=== PATIENT | male | born 1945 | race Caucasian/White ===

== ENCOUNTER → 2018-03-09 10:01 | Outpatient (CLI) | payer MEDICARE, OTHER, SELFPAY ==
[2018-03-09 10:39] LABS: Amphetamine Urine VISTA NEGATIVE (<1000 ng/mL); Barbiturate Urine VISTA NEGATIVE (< 200 ng/mL); Benzodiazepine Urine VISTA NEGATIVE (< 200 ng/mL); Cocaine Urine VISTA NEGATIVE (< 300 ng/mL); Ecstacy Urine VISTA NEGATIVE (< 500 ng/mL); Methadone Urine VISTA NEGATIVE (< 300 ng/mL); PCP Urine VISTA NEGATIVE (< 25 ng/mL); THC Urine VISTA NEGATIVE (< 50 ng/mL); Vista UDS pH Range 5
== END ==
PROVIDERS: Family Provider Family Medicine; PCP Family Medicine; Visit Provider Anesthesiology Pain Medicine
DX: F11.20 Opioid dependence, uncomplicated (principal)
CPT/HCPCS: 80307

== ENCOUNTER → 2018-12-13 09:14 | Outpatient (CLI) | payer MEDICARE, OTHER, SELFPAY ==
[2018-12-13 10:24] LABS: Amphetamine Urine VISTA NEGATIVE (<1000 ng/mL); Barbiturate Urine VISTA NEGATIVE (< 200 ng/mL); Benzodiazepine Urine VISTA NEGATIVE (< 200 ng/mL); Cocaine Urine VISTA NEGATIVE (< 300 ng/mL); Ecstacy Urine VISTA NEGATIVE (< 500 ng/mL); Methadone Urine VISTA NEGATIVE (< 300 ng/mL); PCP Urine VISTA NEGATIVE (< 25 ng/mL); THC Urine VISTA NEGATIVE (< 50 ng/mL); Vista UDS pH Range 5
== END ==
PROVIDERS: Referring Provider Anesthesiology Pain Medicine; Visit Provider Anesthesiology Pain Medicine
DX: F11.20 Opioid dependence, uncomplicated (principal)
CPT/HCPCS: 80307

== ENCOUNTER → 2019-03-30 06:59 | Outpatient (CLI) | payer MEDICARE, OTHER, SELFPAY ==
[2019-03-30 10:21] LABS: Absolute Lymphocyte Count 2.46 X10^3/ul (0.83-4.51); Absolute Neutrophil Count 6.1 X10^3/uL (2.0-7.7); Basophil# 0.05 X10^3/uL; Basophil% 0.5 % (0-1); Eosinophil# 0.12 X10^3/uL; Eosinophils% 1.2 % (0-5); Hematocrit 46.7 % (40-54); Hemoglobin 15.5 g/dl (13.0-16.5); Lymphocyte # 2.46 X10^3/ul (4.0); Lymphocyte % 24.9 % (19-41); Mean Corp Hgb Conc 33.2 g/gl (32-36); Mean Corpuscular Hgb 30.6 pg (27.0-32.0); Mean Corpuscular Volume 92.3 fL (80-94); Mean Platelet Vol. 10.7 fl (6.2-12.0); Monocyte# 1.09 X10^3/uL; Neutrophil # 6.13 X10^3/uL (2.7-7.7); Neutrophil % 62.1 % (47-70); Platelet Count 215 K/mm3 (150-450); RBC Distribution Width CV 13.5 % (11.6-14.6); RBC Distribution Width SD 44.9 fl (35.1-43.9); Red Blood Count 5.06 M/mm3 (4.6-6.2); White Blood Count 9.9 K/mm3 (4.4-11.0)
[2019-03-30 10:23] LABS: Color, Urine Yellow (Yellow); Glucose, Dipstick Normal (Normal); Ketone-Dipstick Negative (Negative); Leukocyte Esterase-Dipstick Negative /ul (Negative); Nitrite-Dipstick Negative (Negative); Occult Blood-Urine 10 /ul (Negative); Protein-Dipstick Negative (Negative); Urine Bilirubin Dipstick Negative (Negative); Urine Clarity Clear (Clear); Urine Urobilinogen Normal (Normal)
[2019-03-30 10:24] LABS: POSITIVE COUNT NO; POSITIVE DIFFERENTIAL NO; POSITIVE MORPHOLOGY NO
[2019-03-30 10:52] LABS: ALB/GLOB Ratio 1.1 RATIO (0.9-2.4); AST(SGOT) 22 U/L (15-37); Alanine Aminotransfer ALT/SGPT 32 U/L (16-61); Albumin, Serum 3.7 g/dL (3.2-5.0); Alkaline Phosphatase 87 U/L (45-117); Anion Gap 5 (5-15); BUN 16 mg/dL (7-18); BUN/Creat Ratio 15.2 RATIO (10-20); Calcium,Total 8.6 mg/dL (8.5-10.1); Chloride 104 mmol/L (98-107); Creatinine, Serum 1.05 mg/dL (0.70-1.30); EST Glomerular Filtration Rate 74 mL/min (>60); Est Glom Filt Rate - Afr Amer 89 mL/min (>60); Globulin 3.5 g/dL (2.2-4.2); Glucose 91 mg/dL (74-106); PSA,Total - Annual Screen 2.38 ng/mL (0.00-4.00); Potassium 4.4 mmol/L (3.5-5.1); Protein, Total 7.2 g/dL (6.4-8.2); Sodium Level 138 mmol/L (136-145); Thyroid Stim Hormone (TSH) 1.75 uIU/mL (0.358-3.74)
[2019-03-30 11:03] LABS: Vitamin B12 631 pg/mL (211-911); Vitamin D,25 Hydroxy 29.4 ng/mL (29.95-100.01)
[2019-04-02 11:36] LABS: Hep C Antibodies <0.1 s/co ratio (0.0-0.9)
== END ==
PROVIDERS: Referring Provider Family Medicine; Visit Provider Family Medicine
DX: I10 Essential (primary) hypertension (principal); R63.4 Abnormal weight loss; R73.03 Prediabetes; R53.83 Other fatigue; Z11.59 Encounter for screening for other viral diseases
CPT/HCPCS: 36415; 80053; 81002; 82306; 82607; 82746; 84153; 84443; 85025; 86803; G0103

== ENCOUNTER → 2019-05-29 09:00 | Outpatient (CLI) | payer MEDICARE, OTHER, SELFPAY ==
--- NOTE | 2019-05-29 09:00 | CYSPIN_PTH ---
PATIENT: RUBEN ROSA [facility] U#:[id number] AGE/SX: 80/M ROOM: RE05/29/[address]: NICHOLAS Hernandez : 1945 BED: DIS: SPEC #: [id number] RECD: 05/30/19 10:53 STATUS: SHANTANU HILDA #: [id number] TOMMY: 05/29/19 09:[address]: Cheryle Elias NP DEPT: CYTOLOGY RECD BY: Rashaad Garcia ENTERED: 05/30/19 10:55 SP TYPE: CYSPIN FL OTHR DR: No Primary Care Phys Procedures: Pap Stain (control) Special Stain Group II Cytospin Fluid HEADER OPERATION: Not noted PRE-OP DIAGNOSIS: Hematuria TISSUE SUBMITTED: Urine for cytology DIAGNOSIS CYTOLOGY Urine for cytology (cytospin): Negative for malignant cells. Amorphous acellular material is noted. SJ:rufina 05/31/19 CYTOLOGY STUDY Slides are reviewed. CYTOLOGY GROSS Received is 40 ml of cloudy yellow fluid labeled with the patient's name and and designated per the requisition as urine. Submitted for cytology preparation. / JAY:diane 05/30/19 TC:5 CPT: 43274
[2019-05-29 18:11] LABS: Cytology, Body Fluid / CSF SEE PATHOLOGY REPORT
== END ==
PROVIDERS: Referring Provider Nurse Practitioner Adult Health; Visit Provider Nurse Practitioner Adult Health
DX: R31.9 Hematuria, unspecified (principal)
CPT/HCPCS: 88108; 88313

== ENCOUNTER → 2020-04-14 09:18 | Outpatient (CLI) | payer MEDICARE, SELFPAY ==
[2020-04-14 10:00] LABS: Amphetamine Urine VISTA NEGATIVE (<1000 ng/mL); Barbiturate Urine VISTA NEGATIVE (< 200 ng/mL); Benzodiazepine Urine VISTA NEGATIVE (< 200 ng/mL); Cocaine Urine VISTA NEGATIVE (< 300 ng/mL); Ecstacy Urine VISTA POSITIVE (< 500 ng/mL); Methadone Urine VISTA NEGATIVE (< 300 ng/mL); PCP Urine VISTA NEGATIVE (< 25 ng/mL); THC Urine VISTA NEGATIVE (< 50 ng/mL); Vista UDS pH Range 5
== END ==
PROVIDERS: PCP Family Medicine; Referring Provider Anesthesiology Pain Medicine; Visit Provider Anesthesiology Pain Medicine
DX: F11.20 Opioid dependence, uncomplicated (principal)
CPT/HCPCS: 80307

== ENCOUNTER → 2020-05-26 09:37 | Outpatient (CLI) | payer MEDICARE, SELFPAY ==
[2020-05-26 10:38] LABS: Squamous Epithelial Cells - UA 0 SEEN /hpf (0-5); White Blood Cells 0 SEEN /hpf (0-5)
[2020-05-26 12:28] LABS: Color, Urine Yellow (Yellow); Glucose, Dipstick Normal (Normal); Ketone-Dipstick Negative (Negative); Leukocyte Esterase-Dipstick Negative /ul (Negative); Nitrite-Dipstick Negative (Negative); Occult Blood-Urine 10 /ul (Negative); Protein-Dipstick Negative (Negative); Specific Gravity, Urine 1.015 (1.002-1.030); Urine Bilirubin Dipstick Negative (Negative); Urine Clarity Clear (Clear); Urine Urobilinogen Normal (Normal)
[2020-05-26 12:36] LABS: Amorphous Sediment 2+; Bacteria 1+ /hpf (None Seen); Mucous, Urine 2+ /hpf (<or=2+); Red Blood Cells-Urine 0-5 SEEN /hpf (0-5)
[2020-05-26 12:50] LABS: OXY Internal Control LINE = VALID (VALID); Oxycodone Drug Screen Positive (<100 ng/mL)
[2020-05-26 12:51] LABS: Amphetamine Urine VISTA NEGATIVE (<1000 ng/mL); Barbiturate Urine VISTA NEGATIVE (< 200 ng/mL); Benzodiazepine Urine VISTA NEGATIVE (< 200 ng/mL); Cocaine Urine VISTA NEGATIVE (< 300 ng/mL); Ecstacy Urine VISTA NEGATIVE (< 500 ng/mL); Methadone Urine VISTA NEGATIVE (< 300 ng/mL); PCP Urine VISTA NEGATIVE (< 25 ng/mL); THC Urine VISTA NEGATIVE (< 50 ng/mL); Vista UDS pH Range 6
== END ==
PROVIDERS: PCP Family Medicine; Visit Provider Family Medicine
DX: N41.0 Acute prostatitis (principal); G89.29 Other chronic pain; Z51.81 Encounter for therapeutic drug level monitoring
CPT/HCPCS: 80307; 80365; 81001; G0480

== ENCOUNTER → 2020-09-30 07:12 | Outpatient (CLI) | payer MEDICARE, SELFPAY ==
--- NOTE | 2020-09-30 07:27 | MRI_ITS ---
STUDY: MRI LUMBAR SPINE WITHOUT CONTRAST REASON FOR EXAM: Male, 75 years old. right radiculopathy, numbness, pain, hx prior surgery 13 years ago TECHNIQUE: Standardized fat and water weighted pulse sequences were obtained in the sagittal and axial planes. COMPARISON: 11/15/2016 FINDINGS: Lumbar lordosis preserved. Levoscoliosis. Conus medullaris terminates normally at the L1 level. No acute fracture. No acute dislocation. No acute bone destruction. Mild paraspinal muscle atrophy. Normal aorta. Normal retroperitoneum. Sacrum intact. T12-L1: Normal endplates. Normal disc height, hydration and morphology. Normal bilateral facet joints. Normal central canal and bilateral lateral recesses. Normal bilateral intervertebral neural foramina. L1-2: Normal endplates. Shallow disc bulge. Facet joint arthrosis. Normal central canal and bilateral lateral recesses. Neural foraminal narrowing without impingement. L2-3: Mild endplate spondylosis. Shallow disc bulge. Facet joint arthrosis. Normal central canal and bilateral lateral recesses. Neural foraminal narrowing without impingement. L3-4: Mild endplate spondylosis. Disc bulge/osteophyte complex with mild central canal narrowing. Facet joint arthrosis. Normal bilateral lateral recesses. Neural foraminal narrowing with contact of the right exiting nerve root. L4-5: Minimal endplate spondylosis. Disc bulge without central canal narrowing. Facet joint arthrosis. Normal central canal and bilateral lateral recesses. Neural foraminal narrowing with contact of the left exiting nerve root. Uncomplicated postsurgical change. L5-S1: Normal endplates. Disc bulge, annular fissure, without central canal narrowing. Facet joint arthrosis. Normal central canal and bilateral lateral recesses. Neural foraminal narrowing without impingement. MRI/Spine Lumbar (Routine) IMPRESSION: Multilevel intervertebral disc disease with mild central canal narrowing at L3-4 Multilevel neural foraminal narrowing with contact of the right L3 and left L4 nerve roots Levoscoliosis with mild/moderate osteoarthritis Uncomplicated postsurgical change Electronically Signed: Kaden Jones DO at 11:31 EST Tel , Service support ,
== END ==
PROVIDERS: PCP Family Medicine; Referring Provider Family Medicine; Visit Provider Family Medicine
DX: M54.17 Radiculopathy, lumbosacral region (principal)
CPT/HCPCS: 72148

== ENCOUNTER → 2020-12-26 08:52 | Outpatient (CLI) | payer MEDICARE, SELFPAY ==
[2020-10-10 08:34] VITALS: BMI 23.8
--- NOTE | 2020-12-26 08:58 | CDU_ITS ---
Reason For Study: CAROTID BRUIT Rt. Velocities/BP Lt. Velocities/BP Prox CCA 97.3/8.6 cm/sec. Prox CCA 84.1/20.4 cm/sec. Mid CCA 73.9/15.1 cm/sec. Mid CCA 87.4/18.2 cm/sec. Dist CCA 76.4/17.7 cm/sec. Dist CCA 81.9/21.5 cm/sec. Prox ICA 442.5/117.5 cm/sec. Prox ICA 204.3/49.1 cm/sec. Mid ICA 208.8/45.6 cm/sec. Mid ICA 144.0/32.0 cm/sec. Dist ICA 95.7/28.1 cm/sec. Dist ICA 130.8/25.5 cm/sec. Rt. ICA/CCA = 442.5/76.4=5.8. Lt. ICA/CCA = 204.3/87.4=2.3. Prox ECA 216.6/22.3 cm/sec. Prox ECA 353.5/0.0 cm/sec. Rt. Vert. 66.9/18.6 cm/sec. Lt. Vert. 64.1/11.2 cm/sec. Right Extracranial There is intimal thickening but no significant atherosclerotic plaque noted in the right common carotid artery. There is heterogeneous, irregular atherosclerotic plaque noted in the right internal carotid artery. There is heterogeneous, irregular atherosclerotic plaque noted in the right external carotid artery. Antegrade flow is noted in the right vertebral artery. There is heterogeneous, irregular atherosclerotic plaque noted in the right bulb. Left Extracranial There is heterogeneous, smooth atherosclerotic plaque noted in the left common carotid artery. There is heterogeneous, irregular atherosclerotic plaque noted in the left internal carotid artery. There is heterogeneous, irregular atherosclerotic plaque noted in the left external carotid artery. Antegrade flow is noted in the left vertebral artery. There is heterogeneous, irregular atherosclerotic plaque noted in the left bulb. Procedure Carotid Duplex [id number]. The study was technically difficult. Exam performed in department. Interpretation Summary Irregular calcific plaque at the proximal right internal and external carotid arteries Greater than 70% stenosis right internal carotid artery and likely near occlusion based upon elevated diastolic velocity. Greater than 50% stenosis right external carotid artery Irregular plaque at the proximal left internal and external carotid arteries 50 to 69% stenosis left internal carotid artery Greater than 50% stenosis left external carotid artery Patent and antegrade vertebrals bilaterally Ordering Physician: Delta Blair Referring Physician: Delta Blair Performed By: Citlaly Hodges, RDCS, RVT
== END ==
PROVIDERS: PCP Family Medicine; Referring Provider Family Medicine; Visit Provider Family Medicine
DX: I65.23 Occlusion and stenosis of bilateral carotid arteries (principal); R09.89 Other specified symptoms and signs involving the circulatory and respiratory systems; R42 Dizziness and giddiness; I10 Essential (primary) hypertension
CPT/HCPCS: 93880

== ENCOUNTER 2021-01-08 09:00 | Outpatient (RCR) | payer MEDICARE, SELFPAY ==
[2020-10-10 08:34] VITALS: BMI 23.8
--- NOTE | 2020-12-16 13:54 | HP.PTEVAL ---
Patient's Visit Information RUBEN ROSA is a 75 year old M referred to Physical Therapy by Dr. Huber Penn DO with a diagnosis of Lumbar stenosis, IDD. Date of Evaluation: 12/16/20 Physical Therapist: ANTONIA AkersT, OCS, CSCS - Visit Plan Frequency: 2x /Week Duration: 4-6 Weeks Plan: 2x/week for 4-6 week for. 1. NS educationa dn strength. 2. HS and hip flexor and quad stretches to HEP. 3. LB AROM and NS strength to HEP. 4. Monitor R hip OA and sterngtghen hips. Consider pool if NS strength not helpful. - Subjective Pain and stiffness in B from accident picking up a RR tie. Made his back a mess. Has scoliosis and OA. Had surgery 13 yrs ago which helped foot. Last 6 months have gotten worse. Last May took a tree down at property and R leg went numb all the way down. Had some leg pain also. Took 60 minutes to go away. Walking makes it worse now. Gets wrose R buttock down front of R leg all on R side. Has not had numbness lately. Sitting feels pretty good. No urinary problems other than R leg pain. Feels like leg is stronger. Sleep is not great but more due to other issues as he is comfortable at rest lying. [facility] aDLs are getting done, sometimes painful but I. 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 He woud normally do repairs himself. Used to maliha dn walk for fitness but cannot. - Pain R back and leg Pain Intensity (Out of 10): 0 Pain Intensity Range: 0, 7 Comment: worse on your feet. - Objective Walks I across surfaces but tends to hunch a bit. Reciprocal steps starting to feel pain R hip after about 200 feet adn one flight steps. Trasnfers are I. LB AROM is mod limited in ext adn pain R post hip. flexion is full. SB are min deficit and painfree. HS and quads and hip flexors max tight. AROM LE WNL except hip ext limtied to 5 degrees due to tightness. Strength LE 4/5 without pain or myotomal concerns. Sensation LE WNL to gross lgiht touch in LE. reflexes 2/3 patella domo chilles. Pelvic movement is fair but tends to anteriorly rotate it. Has + R Vidya adn FADDIR adn scour and limited IR B R>L with pain - Goals Goal 1:: Pt i urszula pprop HEP for NS adn core ROM adn strength Goal Time Frame: 4-6 Weeks Goal 2:: Pt feel 75% better overall in pain levels and walk at home without increased pain. Goal Time Frame: 4-6 Weeks Goal 3:: Pt walk at grocery store without having to be llimited. Goal Time Frame: 4-6 Weeks Goal 4:: Oswestry 12 or less. Goal Time Frame: 4-6 Weeks - Rehabilitation Potential Physical Therapy Diagnosis: stenosis and degeneration in LB vs r hip OA> Rehabilitation Potential: Fair - Anticipated Interventions Patient/Client Instruction: Educate patient on: Condition, Plan of Care For the Purpose of:: To decrease pain, To increase ROM, To increase tolerance to activity/condition/position, To improve ability of physical actions for home/community/work/leisure Therapeutic Exercise to Include: Strength training, Postural training, Flexibilty training, Passive ROM, Active ROM, Dynamic Lumbar Stabilization For the Purpose of:: To decrease pain, To increase ROM, To improve muscle performance and motor function, To increase tolerance to activity/condition/position Manual Therapy Techniques to Include: Mobilization, Passive ROM For the Purpose of:: To decrease pain, To increase ROM, To improve muscle performance and motor function Thermo therapy (hot pack): Yes For the Purpose of:: To decrease pain Thank you for the opportunity to evaluate your patient. For Medicare and Medicare HMO plans, please review the plan of care and approve it. It will need to be FAXED BACK to us at [phone] for Medicare purposes. For Medicare only, by signing this I certify the plan of care. Please let me know if there are questions or concerns regarding this plan of care. Physician Signature: Date:
--- NOTE | 2021-03-18 13:24 | HP.PT.NRP ---
RUBEN ROSA was seen in my office for initial evaluation on 12/16/20. The following Plan of Care was established for this patient: Initial Frequency: 2x /Week Initial Duration: 4-6 Weeks Patient/Client Instruction: Educate patient on: Condition, Plan of Care For the Purpose of:: To decrease pain, To increase ROM, To increase tolerance to activity/condition/position, To improve ability of physical actions for home/community/work/leisure Therapeutic Exercise to Include: Strength training, Postural training, Flexibilty training, Passive ROM, Active ROM, Dynamic Lumbar Stabilization For the Purpose of:: To decrease pain, To increase ROM, To improve muscle performance and motor function, To increase tolerance to activity/condition/position Manual Therapy Techniques to Include: Mobilization, Passive ROM For the Purpose of:: To decrease pain, To increase ROM, To improve muscle performance and motor function Thermo therapy (hot pack): Yes For the Purpose of:: To decrease pain This patient was last seen in our office 01/08/21. Pertinent comments regarding their Physical therapy will appear below: Pt seen 5 visits of POC. HE then neglected to schedule any further visits. At this point, it has been over two months and I iwlll discontinue due to nonattendance. At this point I will be discontinuing this patient from physical therapy. I would be happy to see this patient again in the future if found appropriate by the physician. Thank you! Kaden Ma, DPT, OCS, CSCS
== END 2021-01-08 19:00 | disposition home or self-care (01) ==
LOC: PT 09:00
PROVIDERS: PCP Family Medicine; Referring Provider Orthopaedic Surgery; Visit Provider Orthopaedic Surgery
DX: M48.061 Spinal stenosis, lumbar region without neurogenic claudication (principal); M47.26 Other spondylosis with radiculopathy, lumbar region; M51.36 Other intervertebral disc degeneration, lumbar region
CPT/HCPCS: 97110; 97140; 97162

== ENCOUNTER → 2021-01-08 13:47 | Outpatient (CLI) | payer MEDICARE, SELFPAY ==
[2021-01-01 12:33] VITALS: BMI 24.6
--- NOTE | 2021-01-08 13:48 | CT_ITS ---
STUDY: CTA NECK WITH CONTRAST REASON FOR EXAM: Male, 75 years old. Bilateral carotid stenosis RADIATION DOSAGE (If Supplied By Facility): CTDIvol = ( 23.82 ) mGy, DLP = ( 663.13 ) mGycm TECHNIQUE: CT angiography with multi-detector data acquisition was performed from the aortic arch to the skull base following intravenous administration of 100mL Isovue-370. MIP images were reconstructed from the axial data set. Post-processing of the angiographic images was performed, with multiplanar reformation and 3D reconstruction. Individualized dose optimization techniques were used for this CT. COMPARISON: Ultrasound December 26, 2020 FINDINGS: AORTIC ARCH: Normal visualized aortic arch. Normal origins of the brachiocephalic, left common carotid, and left subclavian arteries. RIGHT CAROTID ARTERIES: Normal right common carotid artery (CCA). There is extensive atherosclerotic plaque formation with severe narrowing of the right carotid bulb with a hemodynamically significant stenosis. There is severe atherosclerotic plaque formation of the origin of the right internal carotid artery with a near complete , greater than 90%, occlusion. Normal visualized cervical portion of the right internal carotid artery. Normal origin of the right external carotid artery (ECA). LEFT CAROTID ARTERIES: Normal left common carotid artery (CCA). There is moderate atherosclerotic plaque formation with moderate narrowing of the carotid bulb. There is moderate atherosclerotic plaque formation of the origin of the left internal carotid artery with an estimated stenosis of 50-69% stenosis. Normal visualized cervical portion of the left internal carotid artery. Normal origin of the left external carotid artery (ECA). VERTEBRAL ARTERIES: Normal bilateral vertebral arteries. CT/CTA Neck W/WO Contrast IMPRESSION: Severe, greater than 90%, right internal carotid arteries stenosis with near total occlusion. Moderate, 50-69%, left internal carotid artery stenosis. Electronically Signed: Varghese Young MD at 23:13 EST , Service support ,
[2021-01-08 14:25] LABS: CREATININE FINGERSTICK 1.1 mg/dL (0.70-1.30); EGFR FINGERSTICK > 60.0000 mL/min (>60)
== END ==
PROVIDERS: PCP Family Medicine; Referring Provider Surgery; Visit Provider Surgery
DX: I65.23 Occlusion and stenosis of bilateral carotid arteries (principal)
CPT/HCPCS: 70498; Q9967

== ENCOUNTER 2021-01-19 05:23 | Inpatient (IN) | payer MEDICARE, SELFPAY ==
--- NOTE | 2021-01-15 10:39 | EKG12_ITS ---
Test Reason : PREOP Blood Pressure : / mmHG Vent. Rate : 078 BPM Atrial Rate : 078 BPM P-R Int : 178 ms QRS Dur : 100 ms QT Int : 404 ms P-R-T Axes : 045 003 088 degrees QTc Int : 460 ms Normal sinus rhythm Normal ECG Confirmed by SHILOH CHAVES, LUCY ([id number]), editor managing newspaper JOSE TORRES ([id number]) on 01/16/2021 9:20:47 AM Referred By: Lionel Little Confirmed By:LUCY MATAMOROS MD
[2021-01-15 11:41] LABS: Hematocrit 45.6 % (40-54); Hemoglobin 14.7 g/dL (13.0-16.5); Mean Corp Hgb Conc 32.2 g/dL (32-36); Mean Corpuscular Hgb 30.3 pg (27.0-32.0); Mean Platelet Vol. 10.3 fl (6.2-12.0); Platelet Count 221 K/mm3 (150-450); RBC Distribution Width CV 12.7 % (11.6-14.6); RBC Distribution Width SD 43.8 fl (35.1-43.9); Red Blood Count 4.85 M/mm3 (4.6-6.2); White Blood Count 9.7 K/mm3 (4.4-11.0)
[2021-01-15 11:49] LABS: International Normalized Ratio 1.1; Partial Thromboplast Time 29.4 Seconds (24.1-36.2); Prothrombin Time (Protime)PT. 13.5 SECONDS (11.7-14.9)
[2021-01-15 12:00] LABS: Anion Gap 6 (5-15); BUN 20 mg/dL (7-18); BUN/Creat Ratio 18.3 RATIO (10-20); Calcium,Total 8.7 mg/dL (8.5-10.1); Chloride 104 mmol/L (98-107); Creatinine, Serum 1.09 mg/dL (0.70-1.30); EST Glomerular Filtration Rate 70 mL/min (>60); Est Glom Filt Rate - Afr Amer 85 mL/min (>60); Glucose 178 mg/dL (74-106); Potassium 4.2 mmol/L (3.5-5.1); Sodium Level 140 mmol/L (136-145)
[2021-01-15 12:14] LABS: AST(SGOT) 32 U/L (15-37); Alanine Aminotransfer ALT/SGPT 43 U/L (16-61); Albumin, Serum 3.5 g/dL (3.2-5.0); Alkaline Phosphatase 97 U/L (45-117); Bilirubin, Direct 0.11 mg/dL (0.00-0.30); Globulin 3.4 g/dL (2.2-4.2); Protein, Total 6.9 g/dL (6.4-8.2)
[2021-01-19] VITALS (20 sets, daily range): BP systolic 114–158; BP diastolic 44–81; PULSE 63–94; RESP 16–18; TEMP 36.1–36.8; O2SAT 95–100; BMI 26.5; BMI 25.7
--- NOTE | 2021-01-19 05:57 | HP.PCM_ITS ---
Problem List (1) Bilateral carotid artery stenosis Status: Acute History and Physical Date of Admission: 01/19/21 Intake Intake Visit Reasons: discuss CTA Chief Complaint: discuss testing Wave Guide Assembler Required: No Is patient in pain?: No Allergies tramadol [From [facility]] Allergy (Severe, Verified 01/12/21 09:43) near Medications acyclovir 200 mg capsule 200 mg PO TID 10/10/20 [History Confirmed 01/12/21] mecobalamin (vitamin B12) 1,000 mcg disintegrating tablet,sublingual 1,000 mcg SUBLINGUAL DAILY 10/10/20 [History Confirmed 01/12/21] oxycodone-acetaminophen 5 mg-325 mg tablet 1 tab PO Q8H PRN 10/10/20 [History Confirmed 01/12/21] amitriptyline 100 mg tablet 100 mg PO DAILY 01/01/21 [History Confirmed 01/12/21] amlodipine 2.5 mg tablet 2.5 mg PO DAILY 01/01/21 [History Confirmed 01/12/21] gabapentin 100 mg capsule 100 mg PO QHS 01/01/21 [History Confirmed 01/12/21] lisinopril 5 mg tablet 20 mg PO DAILY tab 01/01/21 [History Confirmed 01/12/21] tizanidine 4 mg capsule 4 mg PO QHS 01/01/21 [History Confirmed 01/12/21] atorvastatin 80 mg tablet 80 mg PO DAILY tab 01/12/21 [History Confirmed 01/12/21] PFSH Medical History Peripheral arterial occlusive disease (Acute) Bilateral carotid artery stenosis (Acute) Back pain (Acute) H/o fracture to left knee (Acute) HTN (hypertension) (Chronic) Surgical History History of back surgery (Acute) History of tonsillectomy (Acute) Family History Mother Hypertension CVA (cerebral vascular accident) Brother Aneurysm Social History (Updated 01/12/21 @ 10:[address] Lionel Little MD) household members: spouse housing: house Smoking Status: Never smoker alcohol intake: never substance use type: does not use what type of physical activity do you participate in: none HPI HPI HPI: RUBEN SEARS, is a 75 M who presents to the office today for surgical follow-up of asymptomatic extracranial carotid artery occlusive disease. My history is physical is as below. The patient had a CTA of the carotid on January 08, 2021. This demonstrates near total occlusion of the right internal carotid. This correlates well with a carotid duplex exam that he had. The patient has been initiated on a statin medication as per Dr. Delta Blair. The patient returns today discussed treatment options. He does take an 81 mg aspirin daily as well. Reviewed the CTA of his carotids with him. I demonstrated him a high-grade right carotid stenosis. The 50 to 69% stenosis of the left internal carotid. January 08, 2021 [facility] Imaging Services [address] [place] [address] CTA Neck W/WO Contrast MR#: [id number] Name: RUBEN ROSA ARe #:[id number] : 1945M 75 From: Varghese Young MD PCP:Dr. Delta Blair, DO Status:REG CLI Study:CTA Neck W/WO Contrast Date of Exam:01/08/21 Exam#[id number] Ordering Dr: Lionel Little MD STUDY: CTA NECK WITH CONTRAST REASON FOR EXAM: Male, 75 years old. Bilateral carotid stenosis RADIATION DOSAGE (If Supplied By Facility): CTDIvol = ( 23.82 ) mGy, DLP = ( 663.13 ) mGycm TECHNIQUE: CT angiography with multi-detector data acquisition was performed from the aortic arch to the skull base following intravenous administration of 100mL Isovue-370. MIP images were reconstructed from the axial data set. Post-processing of the angiographic images was performed, with multiplanar reformation and 3D reconstruction. Individualized dose optimization techniques were used for this CT. COMPARISON: Ultrasound December 26, 2020 FINDINGS: AORTIC ARCH: Normal visualized aortic arch. Normal origins of the brachiocephalic, left common carotid, and left subclavian arteries. RIGHT CAROTID ARTERIES: Normal right common carotid artery (CCA). There is extensive atherosclerotic plaque formation with severe narrowing of the right carotid bulb with a hemodynamically significant stenosis. There is severe atherosclerotic plaque formation of the origin of the right internal carotid artery with a near complete , greater than 90%, occlusion. Normal visualized cervical portion of the right internal carotid artery. Normal origin of the right external carotid artery (ECA). LEFT CAROTID ARTERIES: Normal left common carotid artery (CCA). There is moderate atherosclerotic plaque formation with moderate narrowing of the carotid bulb. There is moderate atherosclerotic plaque formation of the origin of the left internal carotid artery with an estimated stenosis of 50-69% stenosis. Normal visualized cervical portion of the left internal carotid artery. Normal origin of the left external carotid artery (ECA). VERTEBRAL ARTERIES: Normal bilateral vertebral arteries. CT/CTA Neck W/WO Contrast IMPRESSION: Severe, greater than 90%, right internal carotid arteries stenosis with near total occlusion. Moderate, 50-69%, left internal carotid artery stenosis. Electronically Signed: Varghese Young MD at 23:13 EST , Service support , Addendum entered and electronically signed by Lionel Little MD 01/05/21 10:56: Atorvastatin 80 mg orally daily initiated January 05, [address] Delta Little M.D., F.A.C.S. Intake Chief Complaint: carotid stenosis Allergies tramadol [From [facility]] Allergy (Severe, Verified 01/01/21 12:34) near Medications acyclovir 200 mg capsule 200 mg PO TID 10/10/20 [History Confirmed 01/01/21] mecobalamin (vitamin B12) 1,000 mcg disintegrating tablet,sublingual 1,000 mcg SUBLINGUAL DAILY 10/10/20 [History Confirmed 01/01/21] oxycodone-acetaminophen 5 mg-325 mg tablet 1 tab PO Q8H PRN 10/10/20 [History Confirmed 10/10/20] amitriptyline 100 mg tablet 100 mg PO DAILY 01/01/21 [History Confirmed 01/01/21] amlodipine 2.5 mg tablet 2.5 mg PO DAILY 01/01/21 [History Confirmed 01/01/21] gabapentin 100 mg capsule 100 mg PO QHS 01/01/21 [History Confirmed 01/01/21] lisinopril 5 mg tablet 20 mg PO DAILY tab 01/01/21 [History Confirmed 01/01/21] tizanidine 4 mg capsule 4 mg PO QHS 01/01/21 [History Confirmed 01/01/21] Assessment & Plan Problems 1. Bilateral carotid artery stenosis I65.23 2. Peripheral arterial occlusive disease I77.9 Plan - Dr. Lionel Little MD 75-year-old gentleman. He has what likely is symptomatic extracranial carotid artery occlusive disease. He is orthostatic dizziness is of concern to me. His carotid duplex imaging suggests greater than 70% stenosis on the right possibly reteaching 80%. The left side is 50 to 69%. It is of additional note that on clinical examination he has a markedly diminished right femoral pulse. He does describe some right calf claudication. I recommend that he initiate a low-dose aspirin therapy 81 mg daily now. We will contact Dr. Delta Blair to inquire about the patient's previous lipid profile and whether the patient could be started on a statin medication. I recommend to the patient and we will schedule him for a CTA of the carotids and then will have him return to the office. With his present I have briefly discussed with him potential techniques of right carotid endarterectomy and compared and contrasted that to right carotid artery stenting. He is aware that he is currently at risk for stroke. He is aware that I cannot eliminate that risk. He is aware that we will try to find for him the least risky pathway. He has had an opportunity to ask and have questions answered. Clinically the patient has lower extremity arterial occlusive disease. He has a markedly diminished right femoral pulse. He has symptoms of right calf claudication. With what appears to be critical carotid stenosis on the right and at least moderate disease on the left I will not pursue noninvasive testing of his legs at this time. If the patient requires carotid intervention then subsequent to his recovery we could then consider lower extremity evaluation with PVRs with exercise. Copy: Dr. Delta Little M.D., F.A.C.S. Orders Orders: CTA Neck W/WO Contrast 01/01/21 I65.23 01/05/21 1056<Electronically signed by Lionel Little MD> Date Lionel Little MD cc: Dr. Delta Blair, DO ~* Signed Intake Vital Signs 01/01/21 Height 5 ft 11.5 in 01/01/21 Weight: 179 lb 01/01/21 BP 111/71 01/01/21 Blood Pressure Location Lt brachial 01/01/21 Position Sitting Intake Visit Reasons: CAROTID US 12/26 Chief Complaint: carotid stenosis Wave Guide Assembler Required: No Is patient in pain?: No Allergies tramadol [From [facility]] Allergy (Severe, Verified 01/01/21 12:34) near Medications acyclovir 200 mg capsule 200 mg PO TID 10/10/20 [History Confirmed 01/01/21] mecobalamin (vitamin B12) 1,000 mcg disintegrating tablet,sublingual 1,000 mcg SUBLINGUAL DAILY 10/10/20 [History Confirmed 01/01/21] oxycodone-acetaminophen 5 mg-325 mg tablet 1 tab PO Q8H PRN 10/10/20 [History Confirmed 10/10/20] amitriptyline 100 mg tablet 100 mg PO DAILY 01/01/21 [History Confirmed 01/01/21] amlodipine 2.5 mg tablet 2.5 mg PO DAILY 01/01/21 [History Confirmed 01/01/21] gabapentin 100 mg capsule 100 mg PO QHS 01/01/21 [History Confirmed 01/01/21] lisinopril 5 mg tablet 20 mg PO DAILY tab 01/01/21 [History Confirmed 01/01/21] tizanidine 4 mg capsule 4 mg PO QHS 01/01/21 [History Confirmed 01/01/21] PFSH Medical History Back pain (Acute) H/o fracture to left knee (Acute) HTN (hypertension) (Chronic) Surgical History History of back surgery (Acute) History of tonsillectomy (Acute) Family History Mother Hypertension CVA (cerebral vascular accident) Brother Aneurysm Social History (Updated 01/01/21 @ 13:[address] Lionel Little MD) household members: spouse housing: house Smoking Status: Never smoker alcohol intake: never substance use type: does not use what type of physical activity do you participate in: none HPI HPI HPI: RUBEN ROSA, is a 75 M who presents to the office today for surgical consultation regarding bilateral extracranial carotid artery occlusive disease. The patient is referred by his primary care physician Dr. Delta Blair and a w ritten copy of my surgical consult recommendations will return to him. The patient had presented to Dr. Blair with some concerns about cognitive decline. A carotid duplex exam was obtained as noted below. This suggests likely greater than 80% stenosis of the right internal carotid and 50 to 69% stenosis of the left internal carotid likely closer to the upper levels of that range. The patient's dizziness frequently is orthostatic in nature. He will notice it when he goes from a lying position to a sitting position or sitting position to a standing position. He has had long-term low back pain causing pinching and pain. Apparently this is now chronic and possibly irretrievable. He denies history of myocardial infarction or stroke. He does not think he is ever had a cardiac stress test. He denies dyspnea on exertion or chest pain. When specifically questioned he does note some right calf cramping with walking consistent with vascular claudication. Past surgical history includes back operations T uncinectomy adenoidectomy and a very remote left knee surgery. There is been only a very remote history of tobacco use in the teenage years and that was brief. He is not currently on any aspirin therapy or statin therapy. I do not currently have immediate access to a lipid panel. [facility] Cardiovascular Services [address] [place] [address]. [place] [address] Carotid Duplex Ultrasound 12/26/20909 MR#: [id number] Name: RUBEN ROSA ARe #:[id number] : 1945 75From: Lionel Little MD Attending Dr: Dr. Delta Blair, DOStatus: REG CLI Ordering Dr: Delta Blair DODate: 12/26/20 Location:CVSSex: Admitted: Reason For Study: CAROTID BRUIT Rt. Velocities/BP Lt. Velocities/BP Prox CCA 97.3/8.6 cm/sec. Prox CCA 84.1/20.4 cm/sec. Mid CCA 73.9/15.1 cm/sec. Mid CCA 87.4/18.2 cm/sec. Dist CCA 76.4/17.7 cm/sec. Dist CCA 81.9/21.5 cm/sec. Prox ICA 442.5/117.5 cm/sec. Prox ICA 204.3/49.1 cm/sec. Mid ICA 208.8/45.6 cm/sec. Mid ICA 144.0/32.0 cm/sec. Dist ICA 95.7/28.1 cm/sec. Dist ICA 130.8/25.5 cm/sec. Rt. ICA/CCA = 442.5/76.4=5.8. Lt. ICA/CCA = 204.3/87.4=2.3. Prox ECA 216.6/22.3 cm/sec. Prox ECA 353.5/0.0 cm/sec. Rt. Vert. 66.9/18.6 cm/sec. Lt. Vert. 64.1/11.2 cm/sec. Right Extracranial There is intimal thickening but no significant atherosclerotic plaque noted in the right common carotid artery. There is heterogeneous, irregular atherosclerotic plaque noted in the right internal carotid artery. There is heterogeneous, irregular atherosclerotic plaque noted in the right external carotid artery. Antegrade flow is noted in the right vertebral artery. There is heterogeneous, irregular atherosclerotic plaque noted in the right bulb. Left Extracranial There is heterogeneous, smooth atherosclerotic plaque noted in the left common carotid artery. There is heterogeneous, irregular atherosclerotic plaque noted in the left internal carotid artery. There is heterogeneous, irregular atherosclerotic plaque noted in the left external carotid artery. Antegrade flow is noted in the left vertebral artery. There is heterogeneous, irregular atherosclerotic plaque noted in the left bulb. Procedure Carotid Duplex 10469. The study was technically difficult. Exam performed in department. Interpretation Summary Irregular calcific plaque at the proximal right internal and external carotid arteries Greater than 70% stenosis right internal carotid artery and likely near occlusion based upon elevated diastolic velocity. Greater than 50% stenosis right external carotid artery Irregular plaque at the proximal left internal and external carotid arteries 50 to 69% stenosis left internal carotid artery Greater than 50% stenosis left external carotid artery Patent and antegrade vertebrals bilaterally Ordering Physician: Delta Blair Referring Physician: Delta Blair Performed By: Citlaly Hodges, JONO, RVT 12/26/20 1209 Date Lionel Little MD HPI HPI HPI: RUBEN ROSA, is a 75 M who presents to the office today for ROS General General: Yes weight change; no appetite, fatigue, colon cancer, breast cancer or weakness HEENT HEENT: No difficulty swallowing, eye injury, eye surgery, swollen glands or hoarseness Endo Endocrine: No thyroid disease, diabetes mellitus, thyroid cancer, Hair loss, heat intolerance or cold intolerance Skin Skin: No rash or changing moles Breast Breast: No left breast lump, right breast lump, nipple discharge, breast pain, abnormal mammogram, abnormal US or breast enlargement Musc Musculoskeletal: Yes back problems and arthritis; no rheumatoid arthritis, gout or joint pain Cardio Cardiovascular: Yes high blood pressure; no murmur, pacemaker, heart disease, atrial fibrillation, heart attack, heart stent, palpitations, shortness of breat with exertion or chest pain Psych Psychiatric: No depression, anxiety or hearing voices Resp Respiratory: No shortness of breath, No sleep apnea, No cough, No COPD, No asthma, No emphysema, No wheezing Gastro Gastrointestinal: No abdominal pain, No nausea or vomiting, No diarrhea, Yes constipation, No blood in stool, No acid reflux, Yes hemorrhoids, No ulcers, No gallbladder problem, No black,tarry stools Yovani Hematologic: No blood thinners, No blood disorders, No bleeding, No anemia, No blood clots Neuro Neurologic: No system reviewed and no additional complaints, except as docu, No as per HPI, No abnormal walking, No abnormal hearing, No abnormal movements, No abnormal speech, No behavioral changes, No burning sensations, No confusion, No seizure-like activity, No unsteadiness, No dizziness, No localized weakness, No frequent falls, No headache(s), No lack of coordination, No loss of vision, No memory loss, Yes numbness, No other visual disturbances, No radiating pain, No restless legs, No sensory deficit, No fainting, Yes tingling, No tremor(s), No weakness, No other Exam Const General: cooperative, healthy appearing, comfortable, no acute distress Nutritional Appearance: average body habitus Orientation: alert, awake [facility] Head: normal to inspection Eyes General: appearance normal, both eyes and all related structures Neck Neck: normal visual inspection Chest Chest palpation & inspection: normal inspection of the chest Breast Palpation: No nipple discharge Resp Effort & Inspection: normal respiratory effort Auscultation: clear to auscultation bilaterally Cardio Rate: regular rate Rhythm: regular rhythm Heart Sounds: no murmurs Other: Bilateral radials 3+. Bilateral brachials 3+. Bilateral carotids 3+. I do not detect a carotid bruit. No abdominal bruit Left femoral 2+. Right femoral barely 1+ GI Inspection: normal to inspection Palpation: soft, no hepatosplenomegaly Auscultation: normal bowel sounds Other: Not pulsatile or expansile Musc Cervical Spine: normal cervical lordosis Skin General: no rashes or lesions noted Neuro Cognition: normal cognition Extrem General: no calf tenderness Psych Affect: normal affect Assessment & Plan Problems 1. Bilateral carotid artery stenosis I65.23 2. Peripheral arterial occlusive disease I77.9 Plan 75-year-old gentleman. He has what likely is symptomatic extracranial carotid artery occlusive disease. He is orthostatic dizziness is of concern to me. His carotid duplex imaging suggests greater than 70% stenosis on the right possibly reteaching 80%. The left side is 50 to 69%. It is of additional note that on clinical examination he has a markedly diminished right femoral pulse. He does describe some right calf claudication. I recommend that he initiate a low-dose aspirin therapy 81 mg daily now. We will contact Dr. Delta Blair to inquire about the patient's previous lipid profile and whether the patient could be started on a statin medication. I recommend to the patient and we will schedule him for a CTA of the carotids and then will have him return to the office. With his present I have briefly discussed with him potential techniques of right carotid endarterectomy and compared and contrasted that to right carotid artery stenting. He is aware that he is currently at risk for stroke. He is aware that I cannot eliminate that risk. He is aware that we will try to find for him the least risky pathway. He has had an opportunity to ask and have questions answered. Clinically the patient has lower extremity arterial occlusive disease. He has a markedly diminished right femoral pulse. He has symptoms of right calf claudica tion. With what appears to be critical carotid stenosis on the right and at least moderate disease on the left I will not pursue noninvasive testing of his legs at this time. If the patient requires carotid intervention then subsequent to his recovery we could then consider lower extremity evaluation with PVRs with exercise. Copy: Dr. Delta Little M.D., F.A.C.S. Orders Orders: CTA Neck W/WO Contrast Today I65.23 Coding Level of Care Code 19361 Diagnoses Bilateral carotid artery stenosis I65.23 Peripheral arterial occlusive disease I77.9 HPI HPI HPI: RUBEN ROSA, is a 75 M who presents to the office today for ROS General General: Yes weight change; no appetite, fatigue, colon cancer, breast cancer or weakness HEENT HEENT: No difficulty swallowing, eye injury, eye surgery, swollen glands or hoarseness Endo Endocrine: No thyroid disease, diabetes mellitus, thyroid cancer, Hair loss, heat intolerance or cold intolerance Skin Skin: No rash or changing moles Breast Breast: No left breast lump, right breast lump, nipple discharge, breast pain, abnormal mammogram, abnormal US or breast enlargement Musc Musculoskeletal: Yes back problems and arthritis; no rheumatoid arthritis, gout or joint pain Cardio Cardiovascular: Yes high blood pressure; no murmur, pacemaker, heart disease, atrial fibrillation, heart attack, heart stent, palpitations, shortness of breat with exertion or chest pain Psych Psychiatric: No depression, anxiety or hearing voices Resp Respiratory: No shortness of breath, No sleep apnea, No cough, No COPD, No asthma, No emphysema, No wheezing Gastro Gastrointestinal: No abdominal pain, No nausea or vomiting, No diarrhea, Yes constipation, No blood in stool, No acid reflux, Yes hemorrhoids, No ulcers, No gallbladder problem, No black,tarry stools Yovani Hematologic: No blood thinners, No blood disorders, No bleeding, No anemia, No blood clots Neuro Neurologic: No system reviewed and no additional complaints, except as docu, No as per HPI, No abnormal walking, No abnormal hearing, No abnormal movements, No abnormal speech, No behavioral changes, No burning sensations, No confusion, No seizure-like activity, No unsteadiness, No dizziness, No localized weakness, No frequent falls, No headache(s), No lack of coordination, No loss of vision, No memory loss, Yes numbness, No other visual disturbances, No radiating pain, No restless legs, No sensory deficit, No fainting, Yes tingling, No tremor(s), No weakness, No other Exam Chest Breast Palpation: No nipple discharge Cardio Heart Sounds: no murmurs Assessment & Plan Problems 1. Bilateral carotid artery stenosis I65.23 Plan I discussed with the patient today carotid treatment options. I compared and contrasted a right carotid enterectomy with carotid artery stenting. This is a very high-grade stenotic lesion. I am recommending to him a right carotid enterectomy with possible shunting as well as arterial line monitoring. In detail I discussed the technique, benefit, risk, alternatives. No guarantees of success have been offered. He has had an opportunity to ask and have questions answered. He will remain on his low-dose aspirin surgery up till the day before surgery. As noted he has been initiated on atorvastatin therapy as well. The left carotid does not require intervention at this time. We will however need to follow that closely as well. We will schedule and expedite his care. I appreciate the ongoing opportunity of assisting with her surgical management Copy: Dr. Delta Little M.D., F.A.C.S. Coding Level of Care Code Off vis,est,level 2 Diagnoses Bilateral carotid artery stenosis I65.23 I have re-examined the patient. There are no clinical changes since date of exam. Procedure Criteria Procedure Type: Elective COVID Risk Discussion: The surgeon/proceduralist and patient have discussed in detail the risk of exposure to and/or potential harm posed by the COVID-19 virus with having a barnhart rgery/procedure at this time versus the risk of delaying the surgery/procedure. It is not possible to know either the risk of delaying the surgery or procedure or chance of getting an infection with perfect accuracy, but a joint decision was made between the patient and the surgeon/proceduralist to proceed at this time with the scheduled surgery/procedure as indicated on the consent form.
--- NOTE | 2021-01-19 05:58 | DCINST_ITS ---
Discharge Diet: Light diet - advance as tolerated - if you have questions about your diet instructions, please talk to you doctor. Discharge Activity: May Not Drive - for 1 week or while taking narcotic pain medicine. May shower in (days): 3 - May shower on Lifting Restrictions: 10 pounds Call your doctor if your incision/area has: Continuous Slow Oozing, Sudden Increased Bleeding, Increased Pain/ Swelling, Increased Redness, Foul Smelling Discharge Call your doctor if you observe: Fever of 101 or Higher Suture Line Care: Avoid Pulling/Pushing, Avoid Pinching/Bending Additional Dressing/Incision Instructions:: Please leave the Steri-Strips in place for 1 week. You may apply gauze and tape in order to protect the incision from clothing Allergies/Adverse Reactions: Allergies tramadol [From [facility]] Allergy (Severe, Verified 01/14/21 14:48) near Medications to take at Discharge acyclovir 200 mg capsule 200 mg PO QODAY 10/10/20 oxycodone-acetaminophen 5 mg-325 mg tablet 1 tab PO 4X/DAY 10/10/20 amitriptyline 100 mg tablet 75 mg PO QHS 01/01/21 lisinopril 5 mg tablet 20 mg PO DAILY tab 01/01/21 atorvastatin 80 mg tablet 80 mg PO QHS tab 01/12/21 Aspirin [Aspirin EC] 81 mg PO DAILY 01/14/21 Bisacodyl [Laxative] 10 mg PO DAILY 01/14/21 Ibuprofen/Diphenhydramine Cit [Advil Pm Caplet] 2 each PO DAILY 01/14/21 Melatonin/Pyridoxine HCl (B6) [Melatonin 10 mg Tablet] 3 each PO QHS 01/14/21 Supra Beta Prostate 1 tab PO DAILY 01/14/21 Orders to be completed after discharge: 12 Lead EKG [[facility]] Time Frame: 01/15/21, Location: None Selected Primary Care Physician: Delta Blair DO [Primary Care Provider] - Test Results: Test results from this visit will be discussed in further detail at your follow- up appointment, if applicable. Please Follow Up With: Lionel Little MD - [phone] When: Call to make an appointment to be seen in about 10 days.
--- NOTE | 2021-01-19 06:27 | OP.PCM_ITS ---
Problem List (1) Bilateral carotid artery stenosis Status: Acute Report of Operation Date of Procedure: 01/19/21 Pre-Operative Diagnosis: Symptomatic critical stenosis right extracranial internal carotid artery Post-Operative Diagnosis: Same Surgery/Procedure Performed:: Right radial arterial line placement. Right carotid endarterectomy with bovine patch angioplasty. Vascu-Guard patch. [id number]. PN: [id number]. Lot number [id number] Description of Surgical Findings:: Timeout and informed consent was obtained. At the bedside Javed test performed demonstrating adequate ulnar flow. The right wrist was gently extended prepped with Betadine. Under ultrasound guidance 1% lidocaine was instilled as a local anesthetic. A 20-gauge Arrow Angiocath kit was advanced under ultrasound guidance. Singlewall access was achieved and then Seldinger wire advancement. The cath was secured to skin with 3-0 silk and a OpSite dressing and Kushal wrap. He tolerated the procedure well no apparent complication good waveform was obtained. The patient was subsequently taken to the operating room. He underwent general endotracheal intubation and anesthesia. Ancef 2 g were given intravenously. The right neck was sterilely prepped and draped. An oblique incision was made along the anterior border the sternocleidomastoid. Sharp dissection was performed down through the subcutaneous tissues. The sternocleidomastoid was reflected laterally. Dissection was performed so as to identify the common carotid internal carotid and external carotid and each was dissected free. A Meadows tie of Dacron tape was placed in the common carotid a Dacron tape and Nenita tourniquet the internal carotid and vessel loop around the external carotid. The bifurcation was rather low so the incision had to be extended more inferiorly. The patient received 9000 units of heparin. Based upon ACT measurements later in the case she received another 1000 units of heparin. Peripheral vascular clamps were placed on the common carotid internal carotid and external carotid. A 11 blade was used to make an arteriotomy. I could not get through the calcific plaque so I had to use 11 blade to make an arteriotomy in the internal carotid. Using large Meadows scissors was finally able to find the true lumen. I placed a #10 USCI style shunt cephalad there was tremendous backflow. I elected to remove the shunt and continue to work with out the shunt to facilitate the clean removal of the plaque. Total clamp time was 39 minutes. The pack was sharply transected proximally nicely feathered to the internal carotid and an inversion endarterectomy performed of the external carotid. Further debris was carefully removed with forceps. The cephalad intima of the internal carotid was tacked with a 7-0 Prolene. A Vascu-Guard bovine patch was utilized was shaped to form then a patch angioplasty created with running 6-0 Prolene. Prior to completion there was excellent retrograde flow from the in ternal carotid good flow from the external carotid and good flow from the common carotid. The patch angioplasty was completed. Initial flow was instituted external carotid common carotid find the internal carotid. Hemostasis was intact. Pressure was held for hemostasis. The patient received 20 mg of protamine. The platysma was closed with a running 3-0 Vicryl. Skin is approximated running septic or 5-0 Vicryl. The periincisional area anesthetized with 20 cc of 0.5% Marcaine. Steri-Strips Telfa tape dressings applied. Sponge and instrument and needle counts were reported to the surgeon to be correct. Blood loss 200 cc. Drains none. Specimens plaque. The patient awoke on the table appeared to be grossly neurologically intact and was taken to the recovery area in satisfactory vision without apparent complication. It is of note that at the initiation of the operation under anesthesia there was problem with an esophageal intubation in the nose trauma with marked hypertension at maximum blood pressure of 280/145. At this point with a very high-grade symptomatic stenosis of the right internal carotid I elected to proceed with the operation despite the hypertensive start. He otherwise appeared to be clinically stable. Type of Anesthesia:: General Anesthesiologist: Kelli Perales
[2021-01-19] MEDS: Lactated Ringers 1,000 ML 100 ML IV ×2 (07:00→09:30)
[2021-01-19] MEDS: Cefazolin 2 GM in 0.9% Normal Saline 100 ML IV (07:13)
--- NOTE | 2021-01-19 07:30 | PLAQ_PTH ---
PATIENT: RUBEN ROSA LOC: MS3 U#:[id number] AGE/SX: 75/M ROOM: CT319 RE01/19/[address]: Dr. Lionel Little MD : 1945 BED: 1 DIS: 01/20/2021 SPEC #: [id number] RECD: 01/19/21 12:15 STATUS: SHANTANU REMarisel #: [id number] TOMMY: 01/19/21 07:[address]: Lionel Little DEPT: SURGICAL PATHOLOGY RECD BY: Serina Mandujano ENTERED: 01/19/21 12:58 SP TYPE: PLAQUE OTHR DR: Dr. Delta Blair DO Tissues: PLAQUE Procedures: Decalcification bone/plaque Surgery Specimen Level III HEADER OPERATION: Carotid endarterectomy with patch angioplasty, A line placement PRE-OP DIAGNOSIS: Bilateral carotid artery stenosis TISSUE SUBMITTED: Right carotid plaque MICROSCOPIC DIAGNOSIS Right carotid artery plaque, carotid endarterectomy: Pieces of atherosclerotic tissue with focal calcifications (plaque). SJ:rufina 01/22/2021 GROSS DESCRIPTION Received in fixative is one container labeled with the patient's name and designated right carotid plaque. The specimen consists of multiple irregular and indurated fragments of pink-kearney soft tissue that in aggregate measure 3 x 1.5 x 0.6 cm. The specimen is sectioned and totally submitted in one cassette after decalcification. / AM:rufina 01/19/21 TC:5 CPT: 77613, 23728
[2021-01-19] MEDS: Heparin Injection (Vial) 5,000 UNIT/ML VIAL 5000 UNIT (07:55)
[2021-01-19] MEDS: Bupivacaine Mpf 0.5% 30 ML VIAL (09:25)
[2021-01-19] MEDS: Nitro/D5w 25MG/250ML Bottle 25 MG (09:51)
[2021-01-19] MEDS: Lactated Ringers 1,000 ML 30 ML IV (12:27)
[2021-01-19] MEDS: Cefazolin 1 GM/50 ML BAG IV ×2 (14:53→21:33)
[2021-01-19] MEDS: Aspirin E.C. 81 MG Tablet PO (14:53)
[2021-01-19] MEDS: oxyCODONE 5 MG Tablet PO ×2 (15:04→21:31)
[2021-01-19] MEDS: Acetaminophen 325 MG Tablet PO ×2 (15:05→21:30)
[2021-01-19] MEDS: MELATONIN 3 MG TABLET PO (21:31)
[2021-01-19] MEDS: Amitriptyline 25 MG Tablet 75 MG PO (21:31)
[2021-01-19] MEDS: Atorvastatin Calcium 80 MG Tablet PO (21:31)
[2021-01-20] MEDS: Acetaminophen 325 MG Tablet PO (02:16)
[2021-01-20] MEDS: oxyCODONE 5 MG Tablet PO (02:16)
[2021-01-20 03:44] VITALS: BP 138/64; PULSE 77; RESP 18; TEMP 36.7; O2SAT 96
[2021-01-20 04:55] VITALS: PULSE 62
--- NOTE | 2021-01-20 06:35 | PCM.PN.SRG ---
Patient Problems: Active and Suspected Problems (Last Reviewed 01/12/21 @ 09:43 by Devora Randall) Bilateral carotid artery stenosis (Acute) Subjective: Patient was without complaint. He is comfortable. - Physical Exam Vitals/I&O's: Vital Signs Temp Pulse Resp BP Pulse Ox 98.1 F 62 18 138/64 H 96 01/20/21 03:44 01/20/21 04:55 01/20/21 03:44 01/20/21 03:44 01/20/21 03:44 Oxygen Delivery Method Room Air Weight: 189 lb 9.561 oz Body Mass Index (BMI) 25.7 Intake and Output for Last 24 Hours 01/18/21 01/19/21 01/20/21 23:59 23:59 23:59 Intake Total 2483 / 3033 550 / 550 Output Total 1250 / 1650 400 / 400 Balance 1233 / 1383 150 / 150 General: Alert, Oriented x3, Cooperative, No apparent distress HEENT: - - Full, clean right neck incision Neurological: Cranial nerves II-XII grossly intact Current Medications Acetaminophen (Acetaminophen 325 Mg Tablet) 325 - 650 mg PO Q4H PRN PRN PRN Reason: Pain Score 1-10/10 or Headache Last Admin: 01/20/21 02:16 Dose: 325 mg Documented by: Acyclovir (Acyclovir 200 Mg Capsule) 200 mg PO QODAY [facility] Amitriptyline HCl (Amitriptyline 25 Mg Tablet) 75 mg PO QHS [facility] Last Admin: 01/19/21 21:31 Dose: 75 mg Documented by: Aspirin (Aspirin E.C. 81 Mg Tablet) 81 mg PO DAILY [facility] Atorvastatin Calcium (Atorvastatin Calcium 80 Mg Tablet) 80 mg PO QHS [facility] Last Admin: 01/19/21 21:31 Dose: 80 mg Documented by: Bisacodyl (Bisacodyl 5 Mg Tablet) 10 mg PO DAILY [facility] Lactated Ringer's () 1,000 mls @ 30 mls/hr IV .[id number] [facility] Last Infusion: 01/19/21 21:53 Dose: 30 mls/hr Documented by: Lisinopril (Lisinopril 20 Mg Tablet) 20 mg PO DAILY [facility] Melatonin (Melatonin 3 Mg Tablet) 3 mg PO QHS [facility] Last Admin: 01/19/21 21:31 Dose: 3 mg Documented by: Morphine Sulfate (Morphine 2 Mg/Ml Syringe) 2 - 4 mg IV Q1H PRN PRN PRN Reason: Pain Score 1-10 Morphine Sulfate (Morphine 4 Mg/Ml Syringe) 2 - 4 mg IV Q1H PRN PRN PRN Reason: Pain Score 1-10 Ondansetron HCl (Ondansetron 4 Mg/2 Ml Vial) 4 mg IV Q8H PRN PRN PRN Reason: NAUSEA Oxycodone HCl (Oxycodone 5 Mg Tablet) 5 mg PO 4X/DAY PRN PRN PRN Reason: Pain 1-10 Last Admin: 01/20/21 02:16 Dose: 5 mg Documented by: Sodium Chloride (0.9% Saline Lock 10 Ml Syringe) 10 - 40 ml IV UD PRN PRN Reason: SALINE FLUSH Medical Necessity - Tobacco Use Smoking Status: Never smoker Tobacco Use: Non-smoker Assessment/Plan All Active Problems (Last Reviewed 01/12/21 @ 09:43 by Devora Randall) Peripheral arterial occlusive disease (Acute) Bilateral carotid artery stenosis (Acute) Patient appears to have had an uncomplicated postoperative course. Appears to be neurologically intact. Right neck incision progressing well. Plan discharge. Instructions have been provided to the patient. Lionel Little M.D., F.A.C.S.
[2021-01-20 07:21] LABS: ACT Activated Clotting Time 131 sec (74-137)
[2021-01-20 07:22] LABS: ACT Activated Clotting Time 219 sec (74-137)
[2021-01-20 08:53] VITALS: BP 159/66; PULSE 80; RESP 16; TEMP 36.8; O2SAT 96
--- NOTE | 2021-01-20 09:13 | CASEMGMT ---
KASHMIR ISAAC Assessment: Face to Face with patient for initial transition planning/care coordination assessment. RN CM introduced self and role at [facility], pt voices understanding and consents to assessment. Pt is sitting up in bed in no distress with at bedside. Pt is A/Ox4 and answers all questions appropriately at this time. Care providers, pharmacy, and demographics verified/updated. Admitting Dx: carotid endarterectomy w patch angio PCP:Dr. Blair Specialists: Dr. Casey, surg; , spine surgeon [facility]yes Living Will/DPOA: Pt denies having a LW and DPOA and denies AD info at this time. LNOK: Brook Muhammad Living Arrangements: Pt lives with his in a single story house with one step to enter. Pt is I in ADL's and denies any concerns at home. Transportation: Pt drives self. States no concerns regarding transportation. DME/HHC/SNF: Pt has a cane, walker and motorized scooter in the home, but does not use. Denies need for DME. Pt does not have any history of HHC or SNF stays. Pt states no concerns with going home at time of dc. Pt states no further concerns/needs. CM to follow for any dc planning/needs. Advised pt to ask for CM if any further questions/concerns/needs arise, voices understanding. Pt goal: Home Plan: Home with family support.
== END 2021-01-20 09:50 | disposition home or self-care (01) | DRG 39 ==
LOC: ACINP 05:26 → MS3 10:01
PROVIDERS: Anesthesiology; Admitting Provider Surgery; PCP Family Medicine; Referring Provider Surgery; Visit Provider Surgery
PROC: 03CK0ZZ Extirpation of Matter from Right Internal Carotid Artery, Open Approach (ICD-10-PCS; CPT 35301; principal; 2021-01-19 07:10)
DX: I65.23 Occlusion and stenosis of bilateral carotid arteries (principal); I10 Essential (primary) hypertension; E78.00 Pure hypercholesterolemia, unspecified; I73.9 Peripheral vascular disease, unspecified; Z20.822 Contact with and (suspected) exposure to COVID-19; G89.29 Other chronic pain; Z79.82 Long term (current) use of aspirin; Z79.899 Other long term (current) drug therapy; Z87.891 Personal history of nicotine dependence
CPT/HCPCS: 36415; 80048; 80076; 85027; 85347; 85610; 85730; 87426; 88304; 88311; 93005; 99251; C9803; J7040; J7120; G0463; J2405

== ENCOUNTER → 2021-02-20 09:41 | Outpatient (CLI) | payer MEDICARE, SELFPAY ==
[2021-01-19 14:15] VITALS: BMI 25.7
--- NOTE | 2021-02-20 09:47 | CDUL_ITS ---
Reason For Study: CAROTID STENOSIS, S/P RT CEA Rt. Velocities/BP Prox CCA 105.1/15.1 cm/sec. Mid CCA 78.1/11.6 cm/sec. Dist CCA 93.8/20.7 cm/sec. Prox ICA 82.2/26.9 cm/sec. Mid ICA 111.7/32.7 cm/sec. Dist ICA 109.5/32.7 cm/sec. Rt. ICA/CCA = 111.7/93.8=1.2. Prox ECA 249.4/31.9 cm/sec. Rt. Vert. 60.1/19.5 cm/sec. Right Extracranial There is intimal thickening but no significant atherosclerotic plaque noted in the right common carotid artery. There is heterogeneous, smooth atherosclerotic plaque noted in the right internal carotid artery. There is heterogeneous, irregular atherosclerotic plaque noted in the right external carotid artery. The right external carotid artery is not well visualized. Antegrade flow is noted in the right vertebral artery. Procedure Carotid Duplex 77822. The exam was diagnostic. Exam performed in department. VL/Carotid Unilateral Interpretation Summary Postoperative changes right carotid bulb and proximal internal carotid artery w ith less than 50% stenosis of the internal carotid artery Greater than 50% stenosis right external carotid artery Patent antegrade right vertebral Marked improvement in the right internal carotid artery from the previous exami nation of December 26, 2020 Ordering Physician: Lionel Little Referring Physician: Delta Blair Performed By: Citlaly Hodges, JONO, RVT
== END ==
PROVIDERS: PCP Family Medicine; Referring Provider Surgery; Visit Provider Surgery
DX: I65.23 Occlusion and stenosis of bilateral carotid arteries (principal)
CPT/HCPCS: 93882

== ENCOUNTER 2021-05-18 11:12 | Day surgery (SDC) | payer MEDICARE, SELFPAY ==
[2021-01-19 14:15] VITALS: BMI 25.7
[2021-05-18 13:19] VITALS: BP 178/83; PULSE 56; RESP 16; TEMP 36.3; O2SAT 96; BMI 27.3
[2021-05-18] MEDS: Lactated Ringers 1,000 ML 100 ML IV (13:30)
--- NOTE | 2021-05-18 13:45 | RAD_ITS ---
PROCEDURE: Caudal epidural injection. DATE OF EXAMINATION: 05/18/2021. INDICATION: Male, 75 years old. Chronic low back pain for FLUOROSCOPY TIME (if supplied): (11.4 seconds) minutes/seconds. 2 images were submitted. RAD/Fluor Guidance for Spine Inj IMPRESSION: Intraoperative fluoroscopic imaging provided for caudal epidural injection. Electronically Signed: Loco Parekh MD at 22:29 EDT , Service support ,
[2021-05-18] MEDS: Lidocaine 1% (5 ml sdv) 5 ML Vial (13:49)
[2021-05-18] MEDS: Bupivacaine 0.25% 30 ML Vial (13:49)
[2021-05-18] MEDS: MethylPREDNISolone Acetate 80 MG/ML Vial (13:49)
[2021-05-18] MEDS: 0.9% Normal Saline (Pres. free 10 ML Vial (13:49)
[2021-05-18 13:56] VITALS: BP 178/83; BP 87/59; PULSE 57; RESP 18; TEMP 36.1; O2SAT 99
[2021-05-18 14:05] VITALS: BP 178/83; BP 84/57; PULSE 59; RESP 16; O2SAT 94
[2021-05-18 14:15] VITALS: BP 132/66; BP 178/83; PULSE 53; RESP 16; O2SAT 95
[2021-05-18 14:30] VITALS: BP 151/74; BP 178/83; PULSE 47; RESP 16; TEMP 36; O2SAT 98
[2021-05-18 14:49] VITALS: BP 178/83
--- NOTE | 2021-05-18 17:32 | OP.PCM_ITS ---
Report of Operation Date of Procedure: 05/18/21 Pre-Operative Diagnosis: Lumbosacral radiculopathy, lumbosacral degenerative di sc disease, lumbosacral spinal stenosis Post-Operative Diagnosis: Lumbosacral radiculopathy, lumbosacral degenerative disc disease, lumbosacral spinal stenosis Surgery/Procedure Performed:: Caudal epidural steroid injection under fluoroscopic guidance Type of Anesthesia: MAC Estimated Blood Loss (mL): Minimal Description of Procedure: DESCRIPTION OF PROCEDURE: History and physical of today was reviewed. Risks and benefits of the procedure were explained. The patient understood and agreed to proceed. Informed consent was obtained. IV inserted per routine protocol. The patient was taken to the operating room and placed in the prone position with a pillow positioned underneath the abdomen. The lower back and tailbone area was prepped and draped in a sterile fashion using iodine x3. Under fluoroscopy guidance on a lateral view, the caudal space was identified. The skin and subcutaneous tissue was anesthetized with approximately 3 mL of 1% lidocaine using a 25-gauge regular needle. Under direct visualization with fluoroscopy, using a 22-gauge 3-1/2-inch spinal needle, the needle was advanced via the skin through the sacral hiatus. The tip of the needle was passed through the sacrococcygeal ligament and advanced to approximately S4 area. After negative aspiration of blood or CSF, a total of 3 mL of contrast was injected to confirm correct placement of the needle as well as cephalad spread. The spread was followed to approximately L5 area. After confirmation on AP as well as lateral view and repeated negative aspiration, a total of 15 mL of preservative-free 0.125% Marcaine with 80 mg of Depo-Medrol was injected easily. The needle was then removed intact. The patient experienced no sign or symptoms of intrathecal or intravascular injection. The patient experienced no paresthesia. The procedure was completed without any apparent difficulty or any complications. The patient appeared to tolerate it well. ASSESSMENT AND PLAN: This is a 75-year-old male with lumbosacral radiculopathy, lumbosacral degenerative disc disease, lumbosacral spinal stenosis status post caudal epidural steroid injection, patient will continue his current medications, patient will follow in approximately 2 weeks for reevaluation. Complications None
== END 2021-05-18 14:55 | disposition home or self-care (01) ==
LOC: SDC 11:14 → AC 12:49
PROVIDERS: PCP Family Medicine; Referring Provider Anesthesiology Pain Medicine; Visit Provider Anesthesiology Pain Medicine
PROC: 3E0S3BZ Introduction of Anesthetic Agent into Epidural Space, Percutaneous Approach (ICD-10-PCS; CPT 62282; principal; 2021-05-18 12:55)
DX: M51.17 Intervertebral disc disorders with radiculopathy, lumbosacral region (principal); M48.07 Spinal stenosis, lumbosacral region; M96.1 Postlaminectomy syndrome, not elsewhere classified; G89.29 Other chronic pain; I25.10 Atherosclerotic heart disease of native coronary artery without angina pectoris; E11.40 Type 2 diabetes mellitus with diabetic neuropathy, unspecified; I10 Essential (primary) hypertension; Z79.891 Long term (current) use of opiate analgesic; Z79.82 Long term (current) use of aspirin; Z79.899 Other long term (current) drug therapy
CPT/HCPCS: 62323; 64483; 77003; J7120; J3490

== ENCOUNTER 2021-06-15 07:40 | Day surgery (SDC) | payer MEDICARE, SELFPAY ==
[2021-06-15] VITALS (11 sets, daily range): BP systolic 109–151; BP diastolic 68–94; PULSE 52–86; RESP 16; TEMP 36.1–36.8; O2SAT 96–100; BMI 27.0
[2021-06-15] MEDS: Lactated Ringers 1,000 ML 100 ML IV (08:19)
--- NOTE | 2021-06-15 10:03 | RAD_ITS ---
STUDY: X-RAY - LUMBAR SPINE REASON FOR EXAM: Male, 76 years old. TRANSFORAMINAL INTRA ARTICULAR INJECTION, L4-S1, RIGHT TECHNIQUE: 2 intraoperative view(s) of the lumbar spine were obtained. COMPARISON: None FINDINGS: Intraoperative imaging provided for right L4-S1 transforaminal block. RAD/Lumbar Spine 2 or 3 Views IMPRESSION: Intraoperative imaging provided for right L4-S1 transforaminal block. Electronically Signed: Loco Parekh MD at 12:18 EDT , Service support ,
[2021-06-15] MEDS: MethylPREDNISolone Acetate 80 MG/ML Vial (10:06)
[2021-06-15] MEDS: Bupivacaine 0.5% PF 10 ML VIAL (10:06)
[2021-06-15] MEDS: 0.9% Normal Saline (Pres. free 10 ML Vial (10:06)
[2021-06-15] MEDS: Lidocaine 1% (5 ml sdv) 5 ML Vial (10:06)
--- NOTE | 2021-06-15 12:29 | OP.PCM_ITS ---
Report of Operation Date of Procedure: 06/15/21 Description of Surgical Findings:: PREOPERATIVE DIAGNOSES: 1. Lumbosacral radiculopathy. 2. Lumbosacral degenerative disk disease. 3. Lumbosacral spinal stenosis. POSTOPERATIVE DIAGNOSES: 1. Lumbosacral radiculopathy. 2. Lumbosacral degenerative disk disease. 3. Lumbosacral spinal stenosis. PROCEDURE PERFORMED: Right-sided lumbar transforaminal epidural steroid injection, L4-5, L5-S1. ANESTHESIA: MAC. BLOOD LOSS: Minimal. COMPLICATIONS: None. DESCRIPTION OF PROCEDURE: History and physical of today was reviewed. Risks and benefits of the procedure were explained. The patient understood and agreed to proceed. Informed consent was obtained. IV inserted per routine protocol. The patient was taken to the operating room and placed in the prone position with a pillow positioned underneath the abdomen. The right side of his lower back was prepped and draped in a sterile fashion using iodine x3. Under fluoroscopy guidance on oblique view, the L3 through L5 vertebral bodies were visualized. The skin and subcutaneous tissue was anesthetized with approximately 5 mL of 1% lidocaine using a 25-gauge regular needle. Under direct visualization with fluoroscopy at approximately 35-degree angle, starting on the right L4 ending on the right L5, using a 22-gauge 5-inch spinal needle, the needle was advanced via the skin. The tip of the needle was maneuvered and directed towards the inferior and medial gutter of the transverse process at the superiormost aspect of the neural foramen. Once the tip of the needle was at the vicinity of the foramen, after negative aspiration for blood or CSF, a total of 1 mL of contrast was injected in divided doses between both levels to confirm correct placement of the needle as well as medial spread. The confirmation was obtained on AP as well as lateral view. After repeated negative aspiration and confirmation on AP as well as lateral view, a total of 6 mL of preservative-free 0.25% Marcaine with 80 mg of Depo-Medrol was injected in divided doses between both levels. The needles were then removed intact. The patient experienced no sign or symptoms of intrathecal or intravascular injection. The patient experienced no paresthesia. The procedure was completed without any apparent difficulty or any complications. The patient appeared to tolerate it well. ASSESSMENT AND PLAN: This is a 76-year-old male with lumbosacral radiculopathy, lumbosacral degenerative disk disease, and lumbosacral spinal stenosis, status post right-sided lumbar transforaminal epidural steroid injection at L4-5, L5- S1. The patient will continue his current medications. The patient will follow up in approximately 2 weeks for reevaluation.
== END 2021-06-15 11:45 | disposition home or self-care (01) ==
LOC: SDC 07:42 → AC 07:43
PROVIDERS: PCP Family Medicine; Referring Provider Anesthesiology Pain Medicine; Visit Provider Anesthesiology Pain Medicine
PROC: 3E0S3BZ Introduction of Anesthetic Agent into Epidural Space, Percutaneous Approach (ICD-10-PCS; CPT 64484; principal; 2021-06-15 09:05)
DX: M51.17 Intervertebral disc disorders with radiculopathy, lumbosacral region (principal); M48.07 Spinal stenosis, lumbosacral region; M47.27 Other spondylosis with radiculopathy, lumbosacral region; E11.9 Type 2 diabetes mellitus without complications; I10 Essential (primary) hypertension; I25.10 Atherosclerotic heart disease of native coronary artery without angina pectoris; Z79.891 Long term (current) use of opiate analgesic; Z79.899 Other long term (current) drug therapy
CPT/HCPCS: 64484; 64483; 72100; J7120; J3490

== ENCOUNTER → 2021-08-04 12:49 | Outpatient (CLI) | payer MEDICARE, SELFPAY ==
--- NOTE | 2021-08-04 12:54 | CDU_ITS ---
Reason For Study: carotid stenosis Rt. Velocities/BP Lt. Velocities/BP Prox CCA 102.1/14.7 cm/sec. Prox CCA 60.8/15.7 cm/sec. Mid CCA 107.3/16.0 cm/sec. Mid CCA 73.9/23.4 cm/sec. Dist CCA 102.1/23.9 cm/sec. Dist CCA 72.8/21.2 cm/sec. Prox ICA 114.6/24.9 cm/sec. Prox ICA 283.3/60.3 cm/sec. Mid ICA 119.5/24.9 cm/sec. Mid ICA 151.9/30.2 cm/sec. Dist ICA 121.1/31.6 cm/sec. Dist ICA 149.3/30.2 cm/sec. Rt. ICA/CCA = 1.1. Lt. ICA/CCA = 3.8. Prox ECA 279.0/23.6 cm/sec. Prox ECA 472.4/47.2 cm/sec. Rt. Vert. 50.9/13.5 cm/sec. Lt. Vert. 53.5/12.9 cm/sec. Right Extracranial There is intimal thickening but no significant atherosclerotic plaque noted in the right common carotid artery. There is homogeneous, smooth atherosclerotic plaque noted in the right internal carotid artery. There is heterogeneous, irregular atherosclerotic plaque noted in the right external carotid artery. Antegrade flow is noted in the right vertebral artery. Left Extracranial There is heterogeneous, irregular atherosclerotic plaque noted in the left common carotid artery. There is heterogeneous, irregular atherosclerotic plaque noted in the left internal carotid artery. There is heterogeneous, irregular atherosclerotic plaque noted in the left external carotid artery. Antegrade flow is noted in the left vertebral artery. Procedure Carotid Duplex 45931. This is a Carotid Duplex examination using B-mode, color flow and specral Doppler. The exam was diagnostic. Exam performed in department. VL/Carotid Duplex Ultrasound Interpretation Summary Postoperative changes of the right carotid bulb and proximal internal carotid a rtery with less than 50% stenosis Less than 50% stenosis right external carotid artery Irregular calcific plaque at the proximal left internal carotid artery with gre ater than 70% stenosis. Greater than 50% stenosis left external carotid artery Patent and antegrade vertebral arteries bilaterally There is significant improvement postoperatively involving the right carotid bu lb and proximal internal carotid artery since the previous examinations of February 20, 2021 and F [id number] There is advancement of stenosis involving the left internal carotid artery sin ce the previous examination of December 26, 2020 when there was 50 to 69% stenosis of the left internal carotid Ordering Physician: Lionel Little Performed By: Dino Sánchze RVT
== END ==
PROVIDERS: PCP Family Medicine; Referring Provider Surgery; Visit Provider Surgery
DX: I65.23 Occlusion and stenosis of bilateral carotid arteries (principal)
CPT/HCPCS: 93880

== ENCOUNTER 2021-09-14 06:23 | Day surgery (SDC) | payer MEDICARE, SELFPAY ==
--- NOTE | 2021-09-09 16:28 | PCM.HP.BLA ---
History and Physical Date of Admission: 09/14/21 Follow up, low back pain. History of Present Illness: This is a 76 Y/O Male who was seen and evaluated at our office today as a follow up. Pain: right lower back,right hip,right leg Quality: constant,varies in intensity w/activity Region: pain in the right lower back into the right hip and down the right leg into the right foot. Severity: intense aching,numbness,tingling Timing: Aggravated by: stairs,walking,carrying Relieved by: laying down in bed Pain score (out of 10): 2-01/07 Other info: Patient is here for a follow up. Reports pain in the right side lower back into the right hip and radiates all the way down the right leg. States the pain is constant varies in intensity with activity. Reports intermittent numbness in right leg has increased. No refills. Review of Systems: Patient denies any recent fever, chills, headache, change in weight without trying, vision or hearing problems. No cp, sob, wallace, pnd, orthopnea, or peripheral edema.They note no lumps or swollen glands, no new rashes, changing moles, or change in bladder function but reports bowel issues. Mood has been good overall. 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 drugs: Denies Allergies: Ultram Medications: 1) acyclovir 400 mg oral tablet, Take 1 tablet by mouth once daily 2) aspirin 81 mg oral delayed release tablet, Take 1 tablet by mouth once daily 3) gabapentin 300 mg oral capsule, 1 capsule po bid 4) lisinopril 20 mg oral tablet, Take 1 tablet by mouth once daily 5) Multiple Vitamins oral tablet, Take 1 tablet by mouth once daily 6) ondansetron 4 mg oral tablet, prn 7) Percocet 7.5/325 oral tablet, Take 1 tablet by mouth 3 Times a Day prn 8) PT to eval and treat 9) selenium sulfide 2.5% topical lotion, as directed prn Physical Examination: Wt: 181 lb Ht/Ln: 72 in BMI: 24.5 BP: 129/65 Pulse: 68 RR: 16 Temp: 97.2F Pain: 7 Well nourished and well developed in no acute distress. Alert and oriented to person, place and time. Affect is normal and appropriate. Mucosa pink and moist. Respirations even and unlabored. Neck is supple without significant lymphadenopathy or thyromegaly. Abdomen soft & non-tender. No HSM or masses appreciated. Extremities show no cyanosis, clubbing, or edema. Gait is Antalgic. Lumbar ROM is limited due to pain. Lumbar paraspinal muscle tenderness. Bilateral lumbar facet loading is positive. Positive surgical scar that is well healed. SLR is positive on the right. Sacroiliac Joint Tenderness on palpation. Motor and sensory exam is unchanged. 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 OARRS was reviewed today. He will increase his gabapentin to TID to see if it does help, and will call us for a refill. UDS was performed today and will be reviewed on the next encounter to monitor pt medications compliance. SOAPP score is 7 MRI of the lumbar spine was reviewed with the pt today and they appear to understand. Life style modifications were also discussed today and the pt appears to understand. PEG was reviewed today. Pt was advised not to consume alcohol with his medications due to possible severe interaction, pt appears to understand. The pt has been counseled on safe storage and disposal of opioids. Reviewed with the pt today our opioid agreement and they appear to understand. There are no signs of diversion or addiction with the pt, there is also no signs of abuse or misuse, continues to do well with their medications without any side effects, we will continue monitoring the pt closely. Risks and benefits of the above meds were discussed with the pt and they appear to understand. The common side effects of the medications were discussed and all of their questions and concerns were answered and they appear to understand Discussed natural and expected course of this diagnosis and need to alert me if symptoms do not follow expected course, or if any worse. Pt is to continue with his HEP. Pt has tried multiple modalities with no success, we will schedule the pt for repeat right sided lumbar transforaminal epidural steroid injection L4-S1 as it has worked well for him in the past. We have discussed the risks, benefits as well as alternatives of the procedure and the patient appears to understand and would like to proceed with the above plan. The above plan was discussed today with the pt in details and they appear to understand and agrees to continue with the plan.
[2021-09-14 06:44] VITALS: BP 151/75; PULSE 62; RESP 18; TEMP 35.7; O2SAT 96; BMI 24.6
[2021-09-14] MEDS: Lactated Ringers 1,000 ML 15 ML IV (07:00)
--- NOTE | 2021-09-14 07:50 | RAD_ITS ---
STUDY: X-RAY - LUMBAR SPINE REASON FOR EXAM: Male, 76 years old. TRANSFORAMINAL EPIDURAL INJECTION, L4-S1, RIGHT TECHNIQUE: 5 view(s) of the lumbar spine were obtained. COMPARISON: None FINDINGS: Intraoperative imaging provided for right L4-S1 transforaminal epidural injection. RAD/Lumbar Spine 2 or 3 Views IMPRESSION: Intraoperative imaging provided for right L4-S1 transforaminal epidural injection. Electronically Signed: Loco Parekh MD at 13:57 EST , Service support ,
[2021-09-14] MEDS: Lidocaine 1% (5 ml sdv) 5 ML Vial (07:57)
[2021-09-14] MEDS: Bupivacaine 0.25% 30 ML Vial (07:57)
[2021-09-14] MEDS: MethylPREDNISolone Acetate 80 MG/ML Vial (07:57)
[2021-09-14 08:02] VITALS: BP 103/60; BP 140/90; PULSE 55; RESP 16; TEMP 36.2; O2SAT 96
[2021-09-14 08:05] VITALS: BP 140/90; BP 99/57; PULSE 53; RESP 16; O2SAT 98
[2021-09-14 08:10] VITALS: BP 106/58; BP 140/90; PULSE 52; RESP 16; O2SAT 98
[2021-09-14 08:15] VITALS: BP 115/56; BP 140/90; PULSE 53; RESP 16; TEMP 36.4; O2SAT 98
[2021-09-14 08:31] VITALS: BP 140/90
--- NOTE | 2021-09-14 12:46 | PCM.OPRPT ---
Report of Operation Date of Procedure: 09/14/21 Description of Surgical Findings:: PREOPERATIVE DIAGNOSES: 1. Lumbosacral radiculopathy. 2. Lumbosacral degenerative disk disease. 3. Lumbosacral spinal stenosis. POSTOPERATIVE DIAGNOSES: 1. Lumbosacral radiculopathy. 2. Lumbosacral degenerative disk disease. 3. Lumbosacral spinal stenosis. PROCEDURE PERFORMED: Right-sided lumbar transforaminal epidural steroid injection, L4-5 and L5-S1. ANESTHESIA: MAC. BLOOD LOSS: Minimal. COMPLICATIONS: None. DESCRIPTION OF PROCEDURE: History and physical of today was reviewed. Risks and benefits of the procedure were explained. The patient understood and agreed to proceed. Informed consent was obtained. IV inserted per routine protocol. The patient was taken to the operating room and placed in the prone position with a pillow positioned underneath the abdomen. The right side of his lower back was prepped and draped in a sterile fashion using iodine x3. Under fluoroscopy guidance on oblique view, the L3 through L5 vertebral bodies were visualized. The skin and subcutaneous tissue was anesthetized with approximately 5 mL of 1% lidocaine using a 25-gauge regular needle. Under direct visualization with fluoroscopy at approximately 35-degree angle, starting on the right L4, ending on the right L5, using a 22-gauge 5-inch spinal needle, the needle was advanced via the skin. The tip of the needle was maneuvered and directed towards the inferior and medial gutter of the transverse process at the superiormost aspect of the neural foramen. Once the tip of the needle was at the vicinity of the foramen, after negative aspiration for blood or CSF, a total of 1 mL of contrast was injected in divided doses between both levels to confirm correct placement of the needle as well as medial spread. The confirmation was obtained on AP as well as lateral view. After repeated negative aspiration and confirmation on AP as well as lateral view, a total of 6 mL of preservative-free 0.25% Marcaine with 80 mg of Depo-Medrol was injected in divided doses between both levels. The needles were then removed intact. The patient experienced no sign or symptoms of intrathecal or intravascular injection. The patient experienced no paresthesia. The procedure was completed without any apparent difficulty or any complications. The patient appeared to tolerate it well. ASSESSMENT AND PLAN: This is a 76-year-old male with lumbosacral radiculopathy, lumbosacral degenerative disk disease, and lumbosacral spinal stenosis, status post right-sided lumbar transforaminal epidural steroid injection at L4-5 and L5-S1. The patient will continue his current medications. The patient will follow up in approximately 2 weeks for possible repeat of procedure if indicated
== END 2021-09-14 08:35 | disposition home or self-care (01) ==
LOC: SDC 06:23 → AC 06:24
PROVIDERS: PCP Family Medicine; Referring Provider Anesthesiology Pain Medicine; Visit Provider Anesthesiology Pain Medicine
PROC: 3E0S3BZ Introduction of Anesthetic Agent into Epidural Space, Percutaneous Approach (ICD-10-PCS; CPT 64483; principal; 2021-09-14 07:50)
DX: M51.17 Intervertebral disc disorders with radiculopathy, lumbosacral region (principal); M47.27 Other spondylosis with radiculopathy, lumbosacral region; M48.07 Spinal stenosis, lumbosacral region; M96.1 Postlaminectomy syndrome, not elsewhere classified; I25.10 Atherosclerotic heart disease of native coronary artery without angina pectoris; I10 Essential (primary) hypertension; R73.03 Prediabetes; Z79.891 Long term (current) use of opiate analgesic; Z79.82 Long term (current) use of aspirin; Z79.899 Other long term (current) drug therapy
CPT/HCPCS: 64483; 64484; 72100; J7120

== ENCOUNTER 2021-12-16 08:43 | Outpatient (CLI) | payer MEDICARE, SELFPAY ==
--- NOTE | 2021-12-16 08:49 | CDUL_ITS ---
Reason For Study: STENOSIS Lt. Velocities/BP Prox CCA 82.6/17.3 cm/sec. Mid CCA 95.6/22.6 cm/sec. Dist CCA 93.0/21.3 cm/sec. Prox ICA 309.3/72.4 cm/sec. Mid ICA 184.3/35.5 cm/sec. Dist ICA 122.5/22.3 cm/sec. Lt. ICA/CCA = 3.23. Prox ECA 476.7/56.5 cm/sec. Lt. Vert. 57.8/0.0 cm/sec. Left Extracranial There is homogeneous, smooth atherosclerotic plaque noted in the left common carotid artery. There is heterogeneous, irregular atherosclerotic plaque noted in the left internal carotid artery. There is heterogeneous, smooth atherosclerotic plaque noted in the left external carotid artery. Antegrade flow is noted in the left vertebral artery. There is heterogeneous, irregular atherosclerotic plaque noted in the left bulb. Procedure Carotid Duplex 32332. Exam performed in department. VL/Carotid Unilateral Interpretation Summary Heterogenous irregular plaque at the proximal left internal carotid artery with greater than 70% stenosis. Greater than 50% stenosis left external carotid artery Patent and antegrade left vertebral Left carotid findings similar to the previous examination of August 04, 2021 Ordering Physician: Lionel Little Referring Physician: TRISTON GUO Performed By: Jessica Elaine, RDCS, RVT
== END 2021-12-16 23:59 | disposition home or self-care (01) ==
PROVIDERS: PCP Family Medicine; Referring Provider Surgery; Visit Provider Surgery
DX: I65.23 Occlusion and stenosis of bilateral carotid arteries (principal)
CPT/HCPCS: 93882

== ENCOUNTER 2022-02-10 05:24 | Inpatient (IN) | payer MEDICARE, SELFPAY ==
--- NOTE | 2022-02-04 10:10 | EKG12_ITS ---
Test Reason : PREOP Blood Pressure : / mmHG Vent. Rate : 069 BPM Atrial Rate : 069 BPM P-R Int : 164 ms QRS Dur : 086 ms QT Int : 418 ms P-R-T Axes : 051 006 055 degrees QTc Int : 447 ms Normal sinus rhythm with sinus arrhythmia Normal ECG Confirmed by SHILOH CHAVES, LUCY ([id number]), electronic news gathering editor EDOUARD ALONZO ([id number]) on 02/05/2022 11:22:26 AM Referred By: ANABEL Confirmed By:LUCY MATAMOROS MD
[2022-02-04 10:53] LABS: Hematocrit 45.3 % (40-54); Hemoglobin 14.9 g/dL (13.0-16.5); Mean Corp Hgb Conc 32.9 g/dL (32-36); Mean Corpuscular Hgb 30.2 pg (27.0-32.0); Mean Corpuscular Volume 91.7 fL (80-94); Mean Platelet Vol. 10.2 fl (6.2-12.0); Platelet Count 223 K/mm3 (150-450); RBC Distribution Width CV 13.2 % (11.6-14.6); RBC Distribution Width SD 43.8 fl (35.1-43.9); Red Blood Count 4.94 M/mm3 (4.6-6.2); White Blood Count 11.1 K/mm3 (4.4-11.0)
[2022-02-04 11:11] LABS: International Normalized Ratio 1.1; Prothrombin Time (Protime)PT. 13.8 SECONDS (11.7-14.9)
[2022-02-04 11:12] LABS: Partial Thromboplast Time 28.5 Seconds (24.1-36.2)
[2022-02-04 11:23] LABS: Anion Gap 4 (5-15); BUN 28 mg/dL (7-18); BUN/Creat Ratio 26.2 RATIO (10-20); Chloride 107 mmol/L (98-107); Creatinine, Serum 1.07 mg/dL (0.70-1.30); EST Glomerular Filtration Rate 72 mL/min (>60); Est Glom Filt Rate - Afr Amer 87 mL/min (>60); Glucose 108 mg/dL (74-106); Potassium 4.2 mmol/L (3.5-5.1); Sodium Level 138 mmol/L (136-145)
[2022-02-04 11:26] LABS: AST(SGOT) 25 U/L (15-37); Alanine Aminotransfer ALT/SGPT 35 U/L (16-61); Albumin, Serum 3.8 g/dL (3.2-5.0); Alkaline Phosphatase 73 U/L (45-117); Globulin 3.5 g/dL (2.2-4.2); Protein, Total 7.3 g/dL (6.4-8.2)
[2022-02-10] VITALS (25 sets, daily range): BP systolic 108–175; BP diastolic 45–84; PULSE 56–85; RESP 16–18; TEMP 36.1–37.8; O2SAT 93–100; BMI 24.9
--- NOTE | 2022-02-10 | PLAQ_PTH ---
PATIENT: RUBEN ROSA LOC: MS3 U#:[id number] AGE/SX: 76/M [place] [facility] [place]: Dr. Lionel Little MD : [id number] BED: 1 DIS: 02/11/2022 SPEC #: [id number] RECD: 02/10/22 15:28 STATUS: SHANTANU REMarisel #: [id number] TOMMY: 02/10/22 00:[address]: Lionel Little DEPT: SURGICAL PATHOLOGY RECD BY: Karan Rainey ENTERED: 02/11/22 07:53 SP TYPE: PLAQUE OTHR DR: Dr. Delta Blair DO Tissues: PLAQUE Procedures: Decalcification bone/plaque Surgery Specimen Level III HEADER OPERATION: Carotid endarterectomy with patch angioplasty PRE-OP DIAGNOSIS: Left carotid stenosis TISSUE SUBMITTED: Left carotid plaque MICROSCOPIC DIAGNOSIS Left carotid plaque, endarterectomy: Calcified atheromatous plaque consistent with severe stenosis. AM:rufina 02/15/2022 GROSS DESCRIPTION Received in fixative is one container labeled with the patient's name and designated left carotid plaque. The specimen consists of a previously opened Y-shaped piece of kearney-light yellow, indurated tissue measuring 2 cm in length and up to 1 cm in diameter. The specimen cuts with gritty sensation. The entire specimen is submitted in one cassette after decalcification. / SJ:rufina 02/11/2022 TC:5 CPT: 15955, 16900
--- NOTE | 2022-02-10 05:48 | HP.PCM_ITS ---
History and Physical Date of Admission: 02/10/22 Visit Reasons: update h&p L CEA 02/10 Chief Complaint: discuss carotid US Allergies tramadol [From Ultram] Allergy (Severe, Verified 02/04/22 09:06) near Medications acyclovir 200 mg capsule 200 mg PO QODAY 10/10/20 [History Confirmed 02/04/22] oxycodone-acetaminophen 5 mg-325 mg tablet 1 tab PO 5X/DAY 10/10/20 [History Confirmed 02/04/22] aspirin 81 mg PO DAILY 01/14/21 [History Confirmed 02/04/22] melatonin-pyridoxine HCl (B6) 3 each PO QHS 01/14/21 [History Confirmed 0 02/04/22] lisinopril 20 mg PO DAILY 05/14/21 [History Confirmed 02/04/22] gabapentin 800 mg tablet 600 mg PO BID 12/24/21 [History Confirmed 02/04/22] trazodone 100 mg tablet 100 mg PO QHS tab 12/24/21 [History Confirmed 02/04/22] ibuprofen-diphenhydramine cit [Advil PM] 2 cap PO QHS 02/03/22 [History Confirmed 02/04/22] PFSH Medical History Arthritis Back pain Bilateral carotid artery stenosis Blackout Easy bruising Folliculitis H/o fracture to left knee History of irregular heartbeat HTN (hypertension) Injury of back Leg cramps Non-smoker Peripheral arterial occlusive disease Surgical History History of back surgery History of endarterectomy History of knee surgery History of tonsillectomy Family History Mother Hypertension CVA (cerebral vascular accident) Brother Aneurysm Social History household members: spouse housing: house Smoking Status: Never smoker alcohol intake: never substance use type: does not use what type of physical activity do you participate in: none HPI HPI HPI: RUBEN ROSA, is a 76 M who presents to the office today for an update history and physical. Patient denies any recent hospitalizations or illnesses since his last visit with our office. Patient has had a previous right carotid endarterectomy in 12/2020. Patient's post-operative course was uncomplicated. He now returns to have a left carotid endarterectomy. He denies any complications or side effects from anesthesia. He is not currently on any blood thinners. He is taking narcotic pain medication which is being monitored through pain management. Patient's previous history per Dr. Little: RUBEN ROSA, is a 76 M who presents to the office today for surgical follow-up of extracranial carotid artery occlusive disease. I have most recently seen him on August 12, 2021. On January 19, 2021 because of symptomatic critical stenosis of his right carotid I performed a right carotid endarterectomy with bovine patch angioplasty. Carotid duplex imaging below dated August 22, 2021 and then August 04, 2021 demonstrate patency of his postoperative right carotid. His most recent imaging exam of December 16, 2021 only included the left carotid artery. This demonstrates a peak systolic velocity within the left internal carotid at 309 cm/s flow with an end-diastolic velocity of 72. This is felt to be consistent with greater than 70% stenosis. A previous CTA of the neck performed January 08, 2021 suggested near complete occlusion of the right internal carotid and 50 to 69% stenosis of the left internal carotid. I have reviewed those images. Full reconstruction views were not performed. On the coronal images I would concur that there is 50 to 69% stenosis but likely closer to the upper levels of that range at that time. The patient did not have any technical problems with the right carotid endarterectomy. There were no cervical nerve or central [employer] symptoms. He strongly prefers to sleep on his left side so the right carotid did not present a problem. He of course did have some neck soreness post procedure. He still remains very active lifting 50 to 60 pounds of birdseed. He would like to know when he could resume those activities again post procedure if surgery were pursued. Of greatest concern at the moment is that the patient is intolerant to statin medications. He apparently was instituted on therapy but after 4 days became quite dizzy and had to cease the medication. February 20, 2021 Reason For Study: CAROTID STENOSIS, S/P RT CEA Rt. Velocities/BP Prox CCA 105.1/15.1 cm/sec. Mid CCA 78.1/11.6 cm/sec. Dist CCA 93.8/20.7 cm/sec. Prox ICA 82.2/26.9 cm/sec. Mid ICA 111.7/32.7 cm/sec. Dist ICA 109.5/32.7 cm/sec. Rt. ICA/CCA = 111.7/93.8=1.2. Prox ECA 249.4/31.9 cm/sec. Rt. Vert. 60.1/19.5 cm/sec. Right Extracranial There is intimal thickening but no significant atherosclerotic plaque noted in the right common carotid artery. There is heterogeneous, smooth atherosclerotic plaque noted in the right internal carotid artery. There is heterogeneous, irregular atherosclerotic plaque noted in the right external carotid artery. The right external carotid artery is not well visualized. Antegrade flow is noted in the right vertebral artery. Procedure Carotid Duplex 41779. The exam was diagnostic. Exam performed in department. VL/Carotid Unilateral Interpretation Summary Postoperative changes right carotid bulb and proximal internal carotid artery with less than 50% stenosis of the internal carotid artery Greater than 50% stenosis right external carotid artery Patent antegrade right vertebral Marked improvement in the right internal carotid artery from the previous examination of December 26, 2020 Ordering Physician: Lionel Little Referring Physician: Triston Blair Performed By: Citlaly Hodges, RDCS, RVT 02/20/21 1100Date Lionel Little MD August 04, 2021 Reason For Study: carotid stenosis Rt. Velocities/BP Lt. Velocities/BP Prox CCA 102.1/14.7 cm/sec. Prox CCA 60.8/15.7 cm/sec. Mid CCA 107.3/16.0 cm/sec. Mid CCA 73.9/23.4 cm/sec. Dist CCA 102.1/23.9 cm/sec. Dist CCA 72.8/21.2 cm/sec. Prox ICA 114.6/24.9 cm/sec. Prox ICA 283.3/60.3 cm/sec. Mid ICA 119.5/24.9 cm/sec. Mid ICA 151.9/30.2 cm/sec. Dist ICA 121.1/31.6 cm/sec. Dist ICA 149.3/30.2 cm/sec. Rt. ICA/CCA = 1.1. Lt. ICA/CCA = 3.8. Prox ECA 279.0/23.6 cm/sec. Prox ECA 472.4/47.2 cm/sec. Rt. Vert. 50.9/13.5 cm/sec. Lt. Vert. 53.5/12.9 cm/sec. Right Extracranial There is intimal thickening but no significant atherosclerotic plaque noted in the right common carotid artery. There is homogeneous, smooth atherosclerotic plaque noted in the right internal carotid artery. There is heterogeneous, irregular atherosclerotic plaque noted in the right external carotid artery. Antegrade flow is noted in the right vertebral artery. Left Extracranial There is heterogeneous, irregular atherosclerotic plaque noted in the left common carotid artery. There is heterogeneous, irregular atherosclerotic plaque noted in the left internal carotid artery. There is heterogeneous, irregular atherosclerotic plaque noted in the left external carotid artery. Antegrade flow is noted in the left vertebral artery. Procedure Carotid Duplex [id number]. This is a Carotid Duplex examination using B-mode, color flow and specral Doppler. The exam was diagnostic. Exam performed in department. VL/Carotid Duplex Ultrasound Interpretation Summary Postoperative changes of the right carotid bulb and proximal internal carotid artery with less than 50% stenosis Less than 50% stenosis right external carotid artery Irregular calcific plaque at the proximal left internal carotid artery with greater than 70% stenosis. Greater than 50% stenosis left external carotid artery Patent and antegrade vertebral arteries bilaterally There is significant improvement postoperatively involving the right carotid bulb and proximal internal carotid artery since the previous examinations of February 20, 2021 and December 26, 2020 There is advancement of stenosis involving the left internal carotid artery since the previous examination of December 26, 2020 when there was 50 to 69% stenosis of the left internal carotid Ordering Physician: Lionel Little Performed By: Dino Sánchez RVT 08/04/21 1600Date Lionel Little MD December 16, 2021 Reason For Study: STENOSIS Lt. Velocities/BP Prox CCA 82.6/17.3 cm/sec. Mid CCA 95.6/22.6 cm/sec. Dist CCA 93.0/21.3 cm/sec. Prox ICA 309.3/72.4 cm/sec. Mid ICA 184.3/35.5 cm/sec. Dist ICA 122.5/22.3 cm/sec. Lt. ICA/CCA = 3.23. Prox ECA 476.7/56.5 cm/sec. Lt. Vert. 57.8/0.0 cm/sec. Left Extracranial There is homogeneous, smooth atherosclerotic plaque noted in the left common carotid artery. There is heterogeneous, irregular atherosclerotic plaque noted in the left internal carotid artery. There is heterogeneous, smooth atherosclerotic plaque noted in the left external carotid artery. Antegrade flow is noted in the left vertebral artery. There is heterogeneous, irregular atherosclerotic plaque noted in the left bulb. Procedure Carotid Duplex [id number]. Exam performed in department. VL/Carotid Unilateral Interpretation Summary Heterogenous irregular plaque at the proximal left internal carotid artery with greater than 70% stenosis. Greater than 50% stenosis left external carotid artery Patent and antegrade left vertebral Left carotid findings similar to the previous examination of August 04, 2021 Ordering Physician: Lionel Little Referring Physician: TRISTON BLAIR Performed By: Jessica Elaine, RDCS, RVT 12/16/21 1233Date Lionel Little MD January 08, 2021 STUDY: CTA NECK WITH CONTRAST REASON FOR EXAM: Male, 75 years old. Bilateral carotid stenosis RADIATION DOSAGE (If Supplied By Facility): CTDIvol = ( 23.82 ) mGy, DLP = ( 663.13 ) mGycm TECHNIQUE: CT angiography with multi-detector data acquisition was performed from the aortic arch to the skull base following intravenous administration of 100mL [id number]-370. MIP images were reconstructed from the axial data set. Post-processing of the angiographic images was performed, with multiplanar reformation and 3D reconstruction. Individualized dose optimization techniques were used for this CT. COMPARISON: Ultrasound December 26, 2020 FINDINGS: AORTIC ARCH: Normal visualized aortic arch. Normal origins of the brachiocephalic, left common carotid, and left subclavian arteries. RIGHT CAROTID ARTERIES: Normal right common carotid artery (CCA). There is extensive atherosclerotic plaque formation with severe narrowing of the right carotid bulb with a hemodynamically significant stenosis. There is severe atherosclerotic plaque formation of the origin of the right internal carotid artery with a near complete , greater than 90%, occlusion. Normal visualized cervical portion of the right internal carotid artery. Normal origin of the right external carotid artery (ECA). LEFT CAROTID ARTERIES: Normal left common carotid artery (CCA). There is moderate atherosclerotic plaque formation with moderate narrowing of the carotid bulb. There is moderate atherosclerotic plaque formation of the origin of the left internal carotid artery with an estimated stenosis of 50-69% stenosis. Normal visualized cervical portion of the left internal carotid artery. Normal origin of the left external carotid artery (ECA). VERTEBRAL ARTERIES: Normal bilateral vertebral arteries. CT/CTA Neck W/WO Contrast IMPRESSION: Severe, greater than 90%, right internal carotid arteries stenosis with near total occlusion. Moderate, 50-69%, left internal carotid artery stenosis. Electronically Signed: Varghese Young MD at 23:13 EST , Service support , ROS General General: No weight change, appetite, fatigue, colon cancer, breast cancer or weakness HEENT HEENT: No difficulty swallowing, eye injury, eye surgery, swollen glands or hoarseness Endo Endocrine: No thyroid disease, diabetes mellitus, thyroid cancer, Hair loss, heat intolerance or cold intolerance Skin Skin: No rash or changing moles Breast Breast: No left breast lump, right breast lump, nipple discharge, breast pain, abnormal mammogram, abnormal US or breast enlargement Musc Musculoskeletal: Yes back problems; No arthritis, rheumatoid arthritis, gout or joint pain Cardio Cardiovascular: Yes high blood pressure; No murmur, pacemaker, heart disease, atrial fibrillation, heart attack, heart stent, palpitations, shortness of breat with exertion or chest pain Psych Psychiatric: No depression, anxiety or hearing voices Resp Respiratory: No shortness of breath, No sleep apnea, No cough, No COPD, No asthma, No emphysema and No wheezing Gastro Gastrointestinal: No abdominal pain, No nausea or vomiting, No diarrhea, No constipation, No blood in stool, No acid reflux, No hemorrhoids, No ulcers, No gallbladder problem and No black,tarry stools Yovani Hematologic: No blood thinners, No blood disorders, No bleeding, No anemia and No blood clots Neuro Neurologic: No system reviewed and no additional complaints, except as documented, No as per HPI, No abnormal gait, No abnormal hearing, No abnormal movements, No abnormal speech, No behavioral changes, No burning sensations, No confusion, No convulsions, No disequilibrium, No dizziness, No localized weakness, No frequent falls, No headache(s), No lack of coordination, No loss of vision, No memory loss, No numbness, No other visual disturbances, No radicular pain, No restless legs, No sensory deficit, No syncope, No tingling, No tremor(s), No weakness and No other Exam Const General: cooperative, healthy appearing, comfortable and no acute distress [facility] Head: normal to inspection Eyes General: appearance normal, both eyes and all related structures Neck Neck: normal visual inspection Neck mass: No Other: Right lateral neck- nicely healed incision Resp Effort & Inspection: normal respiratory effort Auscultation: clear to auscultation bilaterally Cardio Rate: regular rate Rhythm: regular rhythm GI Inspection: normal to inspection Palpation: soft Auscultation: normal bowel sounds Musc Cervical Spine: normal cervical lordosis Skin General: no rashes or lesions noted Neuro General: no focal motor deficits and CN's II-XI intact bilaterally Extrem General: normal to inspection Psych Appearance: grossly normal Affect: normal affect Assessment and Plan Assessment and Plan (1) Carotid stenosis, left: Status: Acute Plan - Alberta CHARLES PA-C: Dr. Little will plan to perform a left carotid endarterectomy with bovine patch angioplasty and arterial line monitoring. Procedure details, risks and benefits were reviewed. Patient and his have had the opportunity to ask and have questions answered. Patient verbally understands and agrees with the plan. I have re-examined the patient. There are no clinical changes since date of exam. Lionel Little M.D., F.A.C.S.
--- NOTE | 2022-02-10 05:50 | PCM.DC ---
Discharge Instructions Diet Discharge Diet: Light diet - advance as tolerated Activity Discharge Activity: May Not Drive (For 5 to 7 days), May Not Shower (You may shower starting on Tuesday. Pat the incision dry. Leave the Steri-Strips in place for 1 week.) and May Take a Tub Bath Weight Bearing Status: Full weight bearing Dressing / Incision Call your doctor if your incision/area has: Continuous Slow Oozing, Sudden Increased Bleeding and Increased Pain/ Swelling Call your doctor if you observe: Fever of 101 or Higher Suture Line Care: Avoid Pulling/Pushing Change Dressing in: 1 day (You may apply a dry gauze cover dressing to your incision as needed to protect from clothing irritation. Change as needed) Remove Dressing in: 1 week (Leave your Steri-Strips in place for 1 week then you may remove) Follow Up Care Please Follow Up With: Lionel Little MD When: Approximately 10 days. Please call [phone] to arrange for an appointment Test Results: Test results from this visit will be discussed in further detail at your follow-up appointment, if applicable. Discharge Plan Admission Admit Date/Time: 02/10/22 14:32 Primary Reason for Your Visit: Critical stenosis of left extracranial internal carotid artery Attending Provider: Lionel Little Primary Care Provider: Delta Blair Discharge Orders/Prescriptions Prescriptions: Continued acyclovir 200 mg capsule 200 mg PO QODAY RF: 0 gabapentin 800 mg tablet 600 mg PO BID RF: 0 aspirin 81 MG tablet,delayed release (DR/EC) 81 mg PO DAILY RF: 0 lisinopril 20 mg Tablet 20 mg PO DAILY RF: 0 trazodone 100 mg tablet 100 mg PO QHS RF: 0 Advil PM 200-38 mg Tablet 2 cap PO QHS RF: 0 oxycodone-acetaminophen 10-325 mg tablet 1 tab PO Q4H PRN PRN (Reason: Pain) RF: 0 melatonin 10 mg Tablet 20 mg PO QHS RF: 0 Other Ambulatory Orders: 12 Lead EKG (Routine) Location: None Selected Ordered By: Dr. Lionel Little Referrals / Follow Up: Delta Blair DO [Primary Care Provider] - Disposition Disposition (needs filled in before D/C Order can be placed): Home, Self Care
[2022-02-10] MEDS: Lactated Ringers 1,000 ML 15 ML IV ×2 (06:35→12:50)
--- NOTE | 2022-02-10 06:53 | OP.PCM_ITS ---
Problems Associated Problem List Diagnoses (1) Carotid stenosis, left: Report of Operation Date of Procedure: 02/10/22 Pre-Operative Diagnosis: Critical stenosis left extracranial internal carotid artery Post-Operative Diagnosis: Same Surgery/Procedure Performed:: Right radial arterial line placement Left carotid endarterectomy with Vascu-Guard patch angioplasty. [id number] Lot [id number] P.N.: [id number] Expiry date 07/22/2026 Description of Surgical Findings:: Timeout and informed consent was obtained. 76-year-old gentleman at the bedside in Javed test performed demonstrating adequate ulnar flow of the right wrist. The right wrist was gently extended prep with chlorhexidine ultrasound was used for localization 1% lidocaine was used as local anesthetic 1 cc was used. A premade kit was used to access the artery with a needle and Seldinger wire technique and advancement of a 20 [place] catheter. That was secured the skin with 4-0 silk. OpSite dressing applied after connected to pressure tubing. Good waveform was obtained. Kushal wrap was applied. He tolerated procedure well hand was viable no apparent complication. He was subsequently taken to the operating for definitive surgery. He was taken to the operating placed supine on the table and underwent general endotracheal intubation anesthesia. Ancef 2 g were given intravenously. The left neck was sterilely prepped and draped. An oblique incision was made along the anterior border the sternocleidomastoid. Sharp dissection carried down through the subcutaneous tissues. The sternocleidomastoid was reflected laterally. Internal jugular vein identified and the crossing facial vein was secured with 3-0 Vicryl ligatures. Sharp and blunt dissection was used to identify the common carotid carotid bulb internal and external carotid arteries. A Meadows tie of Dacron tape was placed at the common carotid and a Dacron tape and Nenita tourniquet at the internal carotid and a vessel loop at the external carotid. The superior thyroid was secured with a Meadows tie of 3-0 Vicryl. The patient received 9000 units of heparin intravenously. After adequate serpentine peripheral vascular clamps were placed on the internal/external and common carotid artery. An 11 blade was used to make an arteriotomy which was extended with Meadows scissors. Initially I tried to place a #10 USCI style shunt but was successful with a #8. Time to place the shunt was 3 minutes. An endarterectomy was performed the layer of the external elastic lamina. Plaque was sharply transected proximally and then very nicely feathered distally. I further secured that with a 7 oh tacking stitch. Further debris was carefully removed and the external carotid was treated with an inversion endarterectomy. Vessel was irrigated. A bovine patch was shaped to form and a patch angioplasty created with a running 6-0 Prolene. Clamps were removed and the shunt was removed and the patch angioplasty completed. A couple repair sutures of 7-0 Prolene were needed for hemostasis. Hemostasis was nicely intact good pulsatile flow. Cerebral oximetry remained constant throughout. The patient then received 20 mg of protamine as reversal agent. The wounds were closed with a platysmal layer running 3-0 Vicryl. Skin edges approximated running septic or 5-0 Vicryl. The periincisional areas anesthetized with 20 cc of 0.5% Marcaine. Steri-Strips Telfa tape dressings applied. Sponge and instrument and needle counts were reported to the surgeon to be correct. Specimen plaque. Drains none. Blood loss 200 cc. The patient was taken to the recovery area in satisfactory addition without apparent complication. He appeared to be grossly neurologically intact. Lionel Little M.D., F.A.C.S. Surgeon: Lionel Little Type of Anesthesia: General and Local Anesthesiologist: Karlene Griffin
[2022-02-10] MEDS: Cefazolin 2 GM in 0.9% Normal Saline 100 ML IV (07:19)
[2022-02-10] MEDS: Heparin Injection (Vial) 5,000 UNIT/ML VIAL 5000 UNIT (08:00)
[2022-02-10] MEDS: Nitro/D5w 25MG/250ML Bottle 25 MG (09:30)
[2022-02-10] MEDS: Bupivacaine Mpf 0.5% 30 ML VIAL (09:30)
[2022-02-10 10:43] LABS: ACT Activated Clotting Time 136 sec (74-137)
[2022-02-10 10:45] LABS: ACT Activated Clotting Time 231 sec (74-137)
[2022-02-10] MEDS: hydrALAZINE 20 MG/ML Vial 10 MG IV (13:00)
[2022-02-10] MEDS: Cefazolin 1 GM/50 ML BAG IV ×2 (14:27→18:22)
[2022-02-10] MEDS: Gabapentin 600 MG Tablet PO ×2 (14:27→21:17)
[2022-02-10] MEDS: HYDROcodone Bitartrate/Apap 5/325 Tablet PO ×2 (14:28→15:09)
[2022-02-10] MEDS: oxyCODONE 5 MG Tablet 10 MG PO ×2 (18:51→23:23)
[2022-02-10] MEDS: Acetaminophen 325 MG Tablet PO (21:17)
[2022-02-10] MEDS: MELATONIN 10 MG TABLET 20 MG PO (21:17)
[2022-02-10] MEDS: traZODone 100 MG Tablet PO (21:18)
--- NOTE | 2022-02-10 21:21 | NURSING ---
pt states he takes trazadone and melatonin at the same at home. given together on EMAR at this time
--- NOTE | 2022-02-10 23:35 | NURSING ---
pt stated he has not been up to walk in halls since arrival to unit. pt educated on ambulating and the need for it. pt refused at this time to ambulate other than at bedside to urinate in urinal
--- NOTE | 2022-02-11 04:00 | NURSING ---
this RN offered to assist pt with walking in halls at this time. pt states he wants to get some more sleep first. pt reminded of importance to ambulate after surgery. pt states I will wait until after breakfast
[2022-02-11 04:08] VITALS: BP 113/52; PULSE 77; RESP 18; TEMP 37.3; O2SAT 92
[2022-02-11] MEDS: oxyCODONE 5 MG Tablet 10 MG PO (04:13)
--- NOTE | 2022-02-11 06:19 | PCM.PN.SRG ---
Subjective Subjective Is not comfortable in the bed. No neurologic complaints. No significant left neck pain. Objective Data Objective Data Vital Signs: Vital Signs Temp Pulse Resp BP Pulse Ox 99.1 F 77 18 113/52 L 92 02/11/22 04:08 02/11/22 04:08 02/11/22 04:08 02/11/22 04:08 02/11/22 04:08 Oxygen Delivery Method Room Air Weight: 184 lb Body Mass Index (BMI) 24.9 Intake & Output: Intake and Output for Last 24 Hours 02/09/22 02/10/22 02/11/22 23:59 23:59 23:59 Intake Total 2935.5 / 2935.5 Output Total 1750 / 1750 Balance 1185.5 / 1185.5 Lab / Micro Data Result Diagrams: 02/04/22 09:56 02/04/22 09:56 Labs: Laboratory Results - last 24 hr 02/10/22 06:41: Activated Clotting Time 136 02/10/22 08:41: Activated Clotting Time 231 H Physical Exam Narrative Left neck incision and extraordinarily supple nontender clean and dry Resp normal respiratory effort Extremity Extremity Narrative: Neuro intact Assessment & Plan Assessment/Plan (1) Carotid stenosis, left: PLAN: Excellent postoperative progress. Patient is ready for discharge. Lionel Little M.D., F.A.C.S.
[2022-02-11] MEDS: Lisinopril 20 MG Tablet PO (07:51)
[2022-02-11] MEDS: Gabapentin 600 MG Tablet PO (07:51)
[2022-02-11] MEDS: Aspirin 81 MG TAB.CHEW PO (07:51)
[2022-02-11] MEDS: Acetaminophen 325 MG Tablet PO (07:51)
[2022-02-11] MEDS: Acyclovir 200 MG Capsule PO (07:51)
[2022-02-11 08:00] VITALS: BP 135/70; PULSE 72; RESP 18; TEMP 37.3; O2SAT 93
--- NOTE | 2022-02-11 08:45 | CM.UR ---
RN [employer] CM to room to meet with patient for initial transition planning/care coordination assessment. KASHMIR ISAAC introduced self and role at [facility]. Pt voices understanding and consents to assessment at this time. Pt resting in bed in no distress at this time. @ bedside. Pt is A/O at this time and answers all questions appropriately. Care providers, pharmacy, and demographics verified/updated at this time. PCP: Dr Blair Specialists: Dr Little-surgeon, Dr Castro-pain mgmt [facility]erred [facility]acy: [facility] Insurance: [employer] [facility] Prescription Benefit: Yes Living Will/HPOA: Has both LW and HPOA, who is his , Brook. LNOK: , Brook. Dtr, Camryn Living Arrangements:Lives w/ in one-story home w/no steps to enter. Independent. Transportation: Pt states drives self and states no transportation concerns at this time. also drives DME: Denies using any DME and denies needs. HHC/SNF: No hx of either. No needs identified. Pt wishes to return home and states has no concerns with going home at time of discharge. Pt and voice no concerns/needs at this time. PLAN: Home w/spousal support and discharge plans in place. Leah FOSS RN, CM
== END 2022-02-11 08:55 | disposition home or self-care (01) | DRG 39 ==
LOC: MS3 14:15 → ACINP 14:15
PROVIDERS: Anesthesiology; Admitting Provider Surgery; PCP Family Medicine; Referring Provider Surgery; Visit Provider Surgery
PROC: 03CL0ZZ Extirpation of Matter from Left Internal Carotid Artery, Open Approach (ICD-10-PCS; CPT 35301; principal; 2022-02-10 07:10)
DX: I65.22 Occlusion and stenosis of left carotid artery (principal); I10 Essential (primary) hypertension; Z79.82 Long term (current) use of aspirin; Z79.899 Other long term (current) drug therapy
CPT/HCPCS: 36415; 80048; 80076; 85027; 85347; 85610; 85730; 88304; 88311; 93005; J7040; J7120; A4216; J2405

== ENCOUNTER → 2022-03-12 | Outpatient (CLI) | payer MEDICARE, SELFPAY ==
--- NOTE | 2022-03-12 08:54 | CDU_ITS ---
Reason For Study: carotid stenosis Rt. Velocities/BP Lt. Velocities/BP Prox CCA 78.6/14.7 cm/sec. Prox CCA 68.4/19.0 cm/sec. Mid CCA 79.9/18.6 cm/sec. Mid CCA 82.7/24.5 cm/sec. Dist CCA 99.5/18.6 cm/sec. Dist CCA 84.9/21.2 cm/sec. Prox ICA 88.8/17.6 cm/sec. Prox ICA 87.6/18.8 cm/sec. Mid ICA 97.4/29.8 cm/sec. Mid ICA 119.2/35.8 cm/sec. Dist ICA 121.1/26.1 cm/sec. Dist ICA 185.1/42.4 cm/sec. Rt. ICA/CCA = 1.5. Lt. ICA/CCA = 2.2. Prox ECA 240.1/17.1 cm/sec. Prox ECA 283.6/20.8 cm/sec. Rt. Vert. 56.4/13.5 cm/sec. Lt. Vert. 53.1/12.4 cm/sec. Right Extracranial There is intimal thickening but no significant atherosclerotic plaque noted in the right common carotid artery. There is heterogeneous, smooth atherosclerotic plaque noted in the right internal carotid artery. There is intimal thickening but no significant atherosclerotic plaque noted in the right external carotid artery. Antegrade flow is noted in the right vertebral artery. Left Extracranial There is intimal thickening but no significant atherosclerotic plaque noted in the left common carotid artery. There is homogeneous, smooth atherosclerotic plaque noted in the left internal carotid artery. There is homogeneous, smooth atherosclerotic plaque noted in the left external carotid artery. Antegrade flow is noted in the left vertebral artery. Procedure Carotid Duplex 44046. This is a Carotid Duplex examination using B-mode, color flow and specral Doppler. The exam was diagnostic. Exam performed in department. VL/Carotid Duplex Ultrasound Interpretation Summary Smooth plaque within the proximal right internal carotid artery with less than 50% stenosis Increased velocity flow within the right external carotid artery consistent wit h greater than 50% stenosis Smooth plaque noted throughout the left internal carotid artery with less than 50% stenosis proximally with a slight elevation in velocity distally without concomitant gregory que identified. This would correlate with a category of stenosis of 50 to 69% but may simply reflect the post carotid endarterectomy state. Greater than 50% stenosis left external carotid artery Patent and antegrade vertebral arteries bilaterally Findings demonstrate improvement on the left from previous examination of [facility]2021. Ordering Physician: Lionel Little Performed By: Dino Sánchez RVT
== END | disposition home or self-care (01) ==
LOC: CVS 08:47
PROVIDERS: PCP Family Medicine; Referring Provider Surgery; Visit Provider Surgery
DX: I65.23 Occlusion and stenosis of bilateral carotid arteries (principal)
CPT/HCPCS: 93880

== ENCOUNTER → 2022-08-03 | Outpatient (CLI) | payer MEDICARE, SELFPAY ==
[2022-08-03 12:55] LABS: Hemoglobin A1c 6.3 % (3.8-5.6)
[2022-08-03 13:40] LABS: AST(SGOT) 36 U/L (15-37); Alanine Aminotransfer ALT/SGPT 39 U/L (16-61); Albumin, Serum 3.6 g/dL (3.2-5.0); Alkaline Phosphatase 73 U/L (45-117); Anion Gap 4 (5-15); BUN 19 mg/dL (7-18); BUN/Creat Ratio 14.6 RATIO (10-20); Calcium,Total 9.3 mg/dL (8.5-10.1); Chloride 107 mmol/L (98-107); Cholesterol 137 mg/dL (200); EST Glomerular Filtration Rate 57 mL/min (>60); Est Glom Filt Rate - Afr Amer 69 mL/min (>60); Globulin 3.7 g/dL (2.2-4.2); Glucose 117 mg/dL (74-106); High Density Lipoprotein 38 mg/dL; Potassium 4.4 mmol/L (3.5-5.1); Protein, Total 7.3 g/dL (6.4-8.2); Sodium Level 141 mmol/L (136-145); Triglycerides 210 mg/dL; Very Low Density Lipoprotein 42 mg/dL (5-40)
== END | disposition home or self-care (01) ==
PROVIDERS: PCP Family Medicine; Visit Provider Family Medicine
DX: R73.03 Prediabetes (principal); N18.31 Chronic kidney disease, stage 3a; I12.9 Hypertensive chronic kidney disease with stage 1 through stage 4 chronic kidney disease, or unspecified chronic kidney disease; Z79.899 Other long term (current) drug therapy
CPT/HCPCS: 36415; 80053; 80061; 83036

== ENCOUNTER → 2022-08-04 | Outpatient (CLI) | payer MEDICARE, SELFPAY ==
[2022-08-04 13:23] LABS: Amphetamine Urine VISTA NEGATIVE (<1000 ng/mL); Barbiturate Urine VISTA NEGATIVE (< 200 ng/mL); Benzodiazepine Urine VISTA NEGATIVE (< 200 ng/mL); Cocaine Urine VISTA NEGATIVE (< 300 ng/mL); Ecstacy Urine VISTA NEGATIVE (< 500 ng/mL); Methadone Urine VISTA NEGATIVE (< 300 ng/mL); PCP Urine VISTA NEGATIVE (< 25 ng/mL); THC Urine VISTA NEGATIVE (< 50 ng/mL); Vista UDS pH Range 5
[2022-08-04 13:31] LABS: OXY Internal Control LINE = VALID (VALID); Oxycodone Drug Screen Positive (<100 ng/mL)
== END | disposition home or self-care (01) ==
LOC: LABSPEC 08:55
PROVIDERS: PCP Family Medicine; Visit Provider Family Medicine
DX: R73.03 Prediabetes (principal); N18.31 Chronic kidney disease, stage 3a; I12.9 Hypertensive chronic kidney disease with stage 1 through stage 4 chronic kidney disease, or unspecified chronic kidney disease; Z79.899 Other long term (current) drug therapy
CPT/HCPCS: 80307; 80365; G0480

== ENCOUNTER 2022-09-06 09:27 | Day surgery (SDC) | payer MEDICARE, SELFPAY ==
[2022-09-06 10:06] VITALS: BP 144/83; PULSE 76; RESP 16; TEMP 36.8; O2SAT 94; BMI 25.4
[2022-09-06] MEDS: Lactated Ringers 1,000 ML 15 ML IV (10:15)
[2022-09-06] MEDS: Cefazolin 2 GM in 0.9% Normal Saline 100 ML IV (10:57)
--- NOTE | 2022-09-06 11:11 | RAD_ITS ---
PROCEDURE: Intraoperative imaging provided for spinal cord stimulator insertion. DATE OF EXAMINATION: 09/06/2022. INDICATION: Male, 77 years old. Chronic back pain. FLUOROSCOPY TIME (if supplied): (3 minutes and 13 seconds) minutes/seconds. 5 images were submitted. RAD/Lumbar Spine 2 or 3 Views IMPRESSION: Intraoperative images provided for spinal cord stimulator insertion. The tip of the electrodes is at the T7-T8 level. Electronically Signed: Loco Parekh MD at 14:51 EST ,
[2022-09-06] MEDS: Bupivacaine 0.25% 30 ML Vial (11:14)
[2022-09-06] MEDS: Lidocaine 1% (30 ml sdv) 30 ML Vial (11:14)
[2022-09-06] MEDS: Bacitracin 500 UNITS/GM PACKET (11:35)
[2022-09-06 11:48] VITALS: BP 124/57; BP 144/83; PULSE 56; RESP 16; TEMP 36.3; O2SAT 97
[2022-09-06 11:55] VITALS: BP 127/76; BP 144/83; PULSE 56; RESP 16; O2SAT 97
[2022-09-06 12:00] VITALS: BP 132/72; BP 144/83; PULSE 54; RESP 16; O2SAT 98
[2022-09-06 12:05] VITALS: BP 142/64; BP 144/83; PULSE 54; RESP 16; TEMP 36.3; O2SAT 98
[2022-09-06 12:45] VITALS: BP 144/83
--- NOTE | 2022-09-06 12:45 | PCM.OPRPT ---
Report of Operation Date of Procedure: 09/06/22 Description of Surgical Findings:: Pre-Operative Diagnosis: Lumbosacral radiculopathy, lumbosacral degenerative disc disease, lumbosacral spinal stenosis. Post-Operative Diagnosis: Lumbosacral radiculopathy, lumbosacral degenerative disc disease, lumbosacral spinal stenosis. Surgery/Procedure Performed:: 1.? Spinal cord stimulator thoracolumbar leads placement x2 percutanous trial 2-spinal cord stimulator complex programming, 3-intraoperative fluoroscopic interpretation for spinal cord stimulator insertion. ANESTHESIA: MAC COMPLICATIONS: None BLOOD LOSS: Minimal Implanted device: Spinal cord stimulator lead [id number] lot number [id number], lead #2? [id number] lot number [id number] PROCEDURE IN DETAIL: History and physical today was reviewed. Risks and benefits of procedure explained. The patient understood, agreed to procedure, informed consent was obtained. IV inserted per routine protocol. The patient was taken to the operating room, placed in the prone position with a pillow positioned underneath the abdomen. A 2 g of Ancef IV piggyback was infused per anesthesia. The lower back area was prepped and draped in a sterile fashion using iodine x3 Ioban was placed.? The C-arm was brought in position for AP view at the L1-3 vertebral bodies under direct visualization fluoroscopy on a true AP view the L1-2 interlaminar space was identified skin and subcutaneous tissue and size approximately 10 cc of a mix of 2% lidocaine and 0.25% Marcaine using a 25-gauge regular needle followed by a 25-gauge 3-1/2 inch spinal needle towards the interlaminar space at T12-l1, the skin and subcutaneous tissue were then anesthetized and using an 11-gauge blade was then taken down to the skin and subcutaneous tissue using a 14-gauge 5 inch Touhy needle provided by the [employer] kit the needle was passed through the skin towards the interlaminar space at L1-2 and a left paramedian approach the needle was then advanced under direct visualization fluoroscopy towards the interlaminar space at L1-2 [id number] technique was then carried to air towards the interlaminar space at L1-2 once the tip of the needle was in the epidural space and loss of resistance was encountered to air and after confirmation of AP as well as oblique view of the spinal cord stimulator lead was then advanced under direct visualization fluoroscopy to be at the tip of the lead at top of T8 and the bottom of the lead around mid T10 after confirmation of AP as well as lateral view to confirm correct placement of the lead in the posterior compartment of the epidural space the previous procedure was then repeated to the left at L2-3 interlaminar space to the left the second lead was then inserted under direct visualization with fluoroscopy to be at the top of T8 and mid T10 area the leads were were then connected to the external neurostimulator and patient was then awakened to confirm satisfactory coverage of the painful area once satisfactory coverage was then achieved the stylette of each needle was then removed and the skin and subcutaneous tissue on to the left of the paramedian needles was then taken anesthetized with a total of 10 cc of the previous mixture of 0.25% Marcaine and 2% lidocaine using a 25-gauge regular needle , using the 2-0 silk stitch to secure both leads to the skin with Steri-Strips, the skin was then covered with a Steri-Strips and bacitracin, the external stimulator was then attached to the pouch to the left of the patient's lower back area, the patient was then returned into the supine position in a stable condition and returned to recovery in a stable condition patient experienced no signs or symptoms of intrathecal or intravascular injection patient experienced no paresthesia the procedure was completed without any apparent difficulty any complication the patient appeared to tolerate well, motor as well as sensory function was unchanged from prior to the procedure. ESTIMATED BLOOD LOSS: Minimal less than 10 mL ASSESSMENT AND PLAN: This is a 77-year-old male with lumbosacral radiculopathy lumbosacral, degenerative disc disease lumbosacral spinal stenosis status post 1.? Spinal cord stimulator thoracolumbar leads placement x2 percutaneous trial, spinal cord stimulator programming, intraoperative fluoroscopic interpretation,? patient will continue her current medications a prescription was provided to the patient Keflex 500 mg 1 p.o. every 8 hours for 7 days postop instruction were given in writing to the patient as well as verbally as well as his , patient will follow approximately 3-4 days for reevaluation.
== END 2022-09-06 13:21 | disposition home or self-care (01) ==
LOC: SDC 09:28 → AC 09:41
PROVIDERS: PCP Family Medicine; Visit Provider Anesthesiology Pain Medicine
PROC: (CPT 63650; principal; 2022-09-06 11:45)
DX: Z45.42 Encounter for adjustment and management of neurostimulator (principal); M51.17 Intervertebral disc disorders with radiculopathy, lumbosacral region; M48.07 Spinal stenosis, lumbosacral region; M96.1 Postlaminectomy syndrome, not elsewhere classified; I10 Essential (primary) hypertension; R73.03 Prediabetes; I25.10 Atherosclerotic heart disease of native coronary artery without angina pectoris; Z79.82 Long term (current) use of aspirin; Z79.891 Long term (current) use of opiate analgesic; Z79.899 Other long term (current) drug therapy
CPT/HCPCS: 63650 ×2; 72100; 76000; J7120; J2405

== ENCOUNTER → 2023-04-04 | Outpatient (CLI) | payer MEDICARE, SELFPAY ==
[2023-04-04 12:12] LABS: Anion Gap 5 (5-15); BUN 19 mg/dL (7-18); BUN/Creat Ratio 15.8 RATIO (10-20); Calcium,Total 9.2 mg/dL (8.5-10.1); Chloride 104 mmol/L (98-107); EST Glomerular Filtration Rate 62 mL/min (>60); Est Glom Filt Rate - Afr Amer 76 mL/min (>60); Glucose 119 mg/dL (74-106); Potassium 4.3 mmol/L (3.5-5.1); Sodium Level 139 mmol/L (136-145)
[2023-04-04 12:22] LABS: Hemoglobin A1c 6.5 % (3.8-5.6)
== END | disposition home or self-care (01) ==
LOC: BFHLAB 09:13
PROVIDERS: PCP Family Medicine; Referring Provider Family Medicine; Visit Provider Family Medicine
DX: I10 Essential (primary) hypertension (principal); R73.03 Prediabetes
CPT/HCPCS: 36415; 80048; 83036

== ENCOUNTER → 2023-04-04 | Outpatient (CLI) | payer MEDICARE, SELFPAY ==
--- NOTE | 2023-04-04 09:49 | CDU_ITS ---
Reason For Study: Carotid Stenosis Rt. Velocities/BP Lt. Velocities/BP Prox CCA 124/16 cm/sec. Prox CCA 80/18 cm/sec. Mid CCA 93/17 cm/sec. Mid CCA 86/23 cm/sec. Dist CCA 83/20 cm/sec. Dist CCA 85/22 cm/sec. Prox ICA 118/24 cm/sec. Prox ICA 113/29 cm/sec. Mid ICA 93/27 cm/sec. Mid ICA 111/30 cm/sec. Dist ICA 117/32 cm/sec. Dist ICA 124/36 cm/sec. Rt. ICA/CCA = 1.3. Lt. ICA/CCA = 1.4. Prox ECA 204/20 cm/sec. Prox ECA 240/20 cm/sec. Rt. Vert. 63/17 cm/sec. Lt. Vert. 55/9 cm/sec. Right Extracranial There is heterogeneous, smooth atherosclerotic plaque noted in the right common carotid artery. There is heterogeneous, smooth atherosclerotic plaque noted in the right internal carotid artery. There is intimal thickening but no significant atherosclerotic plaque noted in the right external carotid artery. Antegrade flow is noted in the right vertebral artery. Left Extracranial There is heterogeneous, irregular atherosclerotic plaque noted in the left common carotid artery. There is heterogeneous, smooth atherosclerotic plaque noted in the left internal carotid artery. There is heterogeneous, smooth atherosclerotic plaque noted in the left external carotid artery. Antegrade flow is noted in the left vertebral artery. Procedure Carotid Duplex 45590. This is a Carotid Duplex examination using B-mode, color flow and specral Doppler. Exam performed in department. VL/Carotid Duplex Ultrasound Interpretation Summary Smooth plaque at the proximal right internal carotid artery with less than 50% stenosis Greater than 50% stenosis right external carotid artery Smooth plaque at the proximal left internal carotid artery with less than 50% s tenosis Greater than 50% stenosis left external carotid artery Patent and antegrade vertebral arteries bilaterally No advancement of disease from the previous examination of March 12, 2022 Ordering Physician: Lionel Little Referring Physician: Delta Blair Performed By: Susana Bianchi, JONO, RVT
== END | disposition home or self-care (01) ==
LOC: CVS 09:47
PROVIDERS: PCP Family Medicine; Referring Provider Surgery; Visit Provider Surgery
DX: I10 Essential (primary) hypertension (principal); R73.03 Prediabetes; I65.23 Occlusion and stenosis of bilateral carotid arteries
CPT/HCPCS: 36415; 80048; 83036; 93880

== ENCOUNTER → 2023-07-11 | Outpatient (CLI) | payer MEDICARE, SELFPAY ==
[2023-07-11 12:15] LABS: Absolute Neutrophil Count 9.6 X10^3/uL (2.0-7.7); Basophil% 0.8 % (0-1); Eosinophil# 0.09 X10^3/uL; Eosinophils% 0.7 % (0-5); Hematocrit 43.2 % (40-54); Hemoglobin 13.9 g/dL (13.0-16.5); Lymphocyte % 13.4 % (19-41); Mean Corp Hgb Conc 32.2 g/dL (32-36); Mean Corpuscular Hgb 31.3 pg (27.0-32.0); Mean Corpuscular Volume 97.3 fL (80-94); Mean Platelet Vol. 10.7 fl (6.2-12.0); Monocyte# 0.84 X10^3/uL; Monocyte% 6.6 % (0-10); NRBC Flagged by Analyzer 0 % (0-5); Neutrophil % 75.6 % (47-70); Platelet Count 195 K/mm3 (150-450); RBC Distribution Width CV 13.2 % (11.6-14.6); Red Blood Count 4.44 M/mm3 (4.6-6.2); White Blood Count 12.7 K/mm3 (4.4-11.0)
[2023-07-11 12:53] LABS: ALB/GLOB Ratio 0.8 RATIO (0.9-2.4); AST(SGOT) 18 U/L (15-37); Alanine Aminotransfer ALT/SGPT 28 U/L (16-61); Albumin, Serum 3.3 g/dL (3.2-5.0); Alkaline Phosphatase 69 U/L (45-117); Anion Gap 6 (5-15); BUN 27 mg/dL (7-18); BUN/Creat Ratio 23.9 RATIO (10-20); Calcium,Total 8.9 mg/dL (8.5-10.1); Chloride 105 mmol/L (98-107); Cholesterol 153 mg/dL (200); Creatinine, Serum 1.13 mg/dL (0.70-1.30); EST Glomerular Filtration Rate 67 mL/min (>60); Est Glom Filt Rate - Afr Amer 81 mL/min (>60); Globulin 3.9 g/dL (2.2-4.2); Glucose 142 mg/dL (74-106); High Density Lipoprotein 46 mg/dL; Potassium 4.8 mmol/L (3.5-5.1); Protein, Total 7.2 g/dL (6.4-8.2); Sodium Level 138 mmol/L (136-145); Triglycerides 176 mg/dL; Very Low Density Lipoprotein 35 mg/dL (5-40)
[2023-07-11 13:39] LABS: OXY Internal Control LINE = VALID (VALID); Oxycodone Drug Screen Positive (<100 ng/mL)
[2023-07-11 13:41] LABS: Microalbumin,Random Urine 29.3 mg/L (NO RANGE EST.); Microalbumin:Creatinine Ratio 30.2 mg/g CRE (<30 mg/g CRE)
[2023-07-11 14:01] LABS: Amphetamine Urine VISTA NEGATIVE (<1000 ng/mL); Barbiturate Urine VISTA NEGATIVE (< 200 ng/mL); Benzodiazepine Urine VISTA NEGATIVE (< 200 ng/mL); Cocaine Urine VISTA NEGATIVE (< 300 ng/mL); Ecstacy Urine VISTA NEGATIVE (< 500 ng/mL); Methadone Urine VISTA NEGATIVE (< 300 ng/mL); PCP Urine VISTA NEGATIVE (< 25 ng/mL); THC Urine VISTA NEGATIVE (< 50 ng/mL); Vista UDS pH Range 6
[2023-07-11 14:23] LABS: Hemoglobin A1c 7.8 % (3.8-5.6)
== END | disposition home or self-care (01) ==
LOC: BFHLAB 09:48
PROVIDERS: PCP Family Medicine; Referring Provider Family Medicine; Visit Provider Family Medicine
DX: E11.51 Type 2 diabetes mellitus with diabetic peripheral angiopathy without gangrene (principal); I10 Essential (primary) hypertension; F11.90 Opioid use, unspecified, uncomplicated; Z79.899 Other long term (current) drug therapy
CPT/HCPCS: 36415; 80053; 80061; 80307; 80365; 82043; 82570; 83036; 85025; G0480

== ENCOUNTER 2023-09-17 18:04 | Observation (INO) | payer MEDICARE, SELFPAY ==
[2023-09-17] VITALS (7 sets, daily range): BP systolic 156–195; BP diastolic 83–120; PULSE 74–99; RESP 18–21; TEMP 36.4–36.9; O2SAT 88–98; BMI 27.0; BMI 26.5
--- NOTE | 2023-09-17 18:19 | EKG12_ITS ---
Test Reason : DYSRHYTHMIA Blood Pressure : / mmHG Vent. Rate : 126 BPM Atrial Rate : 000 BPM P-R Int : 000 ms QRS Dur : 080 ms QT Int : 338 ms P-R-T Axes : 000 -02 094 degrees QTc Int : 489 ms Atrial fibrillation with rapid ventricular response Nonspecific ST and T wave abnormality Abnormal ECG Confirmed by SHILOH CHAVES, LUCY ([id number]), senior editor JOSE TORRES ([id number]) on 09/21/2023 12:38:51 PM Referred By: ISIDORO Confirmed By:LUCY MATAMOROS MD
--- NOTE | 2023-09-17 18:20 | ED.VIS.DYS ---
HPI History of Present Illness Chief Complaint: Shortness of Breath Detail of Chief Complaint: Onset of exertional dyspnea and leg swelling bilaterally. Informant: patient and spouse/S.O. Onset/Context/Timing Onset: Days Context: sudden Timing: Intermittent Quality: Positive for Dyspnea on exertion; Negative for Wheezing Current Severity: Mild Maximum Severity: Moderate Worsened by: Exertion Relieved by: Rest Associated Symptoms Negative for cough, rhinorrhea, fever, sore throat, clear sputum, white sputum, yellow sputum or green sputum Chest Pain: Positive for None Narrative Narrative: 78-year-old male past medical history of recently diagnosed diabetes started on medication. Says he had a weight gain. And he has had shortness of breath began about 5 days ago. Worse with exertion. No chest pain. No fever. No new cough. No history of DVT or PE. No prior cardiac history. No recent long trips nor surgery nor hospitalization. Denies any hemoptysis. No thyroid history. PE Risk Factors: Negative for Cancer, OCP + Smoking + > 35, Prior DVT or PE, Recent immobilization, Recent surgery or Recent travel Prior similar symptoms: No Recent Illness/Hospitalization: No PFSH PFSH Medical History Arthritis Back pain Bilateral carotid artery stenosis H/o fracture to left knee Herpes History of irregular heartbeat HTN (hypertension) Injury of back Non-smoker Peripheral arterial occlusive disease Syncope Wears dentures Home Medications acyclovir 200 mg capsule 200 mg PO QODAY herpes 10/10/20 [History Last Taken 02/09/22] aspirin 81 mg tablet,delayed release 81 mg PO DAILY heart 01/14/21 [History Last Taken 09/05/22] lisinopril 20 mg tablet 20 mg PO DAILY HTN 05/14/21 [History Last Taken 02/10/22 04:45 20 mg] gabapentin 800 mg tablet 400 mg PO TID pain 12/24/21 [History Last Taken 02/10/22] trazodone 100 mg tablet 50 mg PO QHS sleep 12/24/21 [History Last Taken 02/09/22] ibuprofen-diphenhydramine citrate 200 mg-38 mg tablet (Advil PM) 2 cap PO QHS sleep 02/03/22 [History Last Taken Unknown] melatonin 10 mg tablet 20 mg PO QHS sleep 02/10/22 [History Last Taken 02/09/22] oxycodone-acetaminophen 10 mg-325 mg tablet 1 tab PO Q4H PRN PRN Pain 02/10/22 [History Last Taken 09/06/22 08:45] magnesium oxide 500 mg tablet (Ocasio) 500 mg PO BID 07/30/22 [History Last Taken Unknown] ondansetron HCl 4 mg tablet 4 mg PO Q6H PRN Nausea 07/30/22 [History Last Taken Unknown] Allergy/AdvReac Type Severity Reaction Status Date / [facility] Allergy Severe near Verified 09/17/23 18:05 Family History Mother Hypertension CVA (cerebral vascular accident) Brother Aneurysm Surgical History History of back surgery History of colonoscopy History of endarterectomy History of knee surgery History of tonsillectomy Social History household members: spouse housing: house Smoking Status: Never smoker alcohol intake: never substance use type: does not use what type of physical activity do you participate in: none ROS ROS ED ROS Narrative Exertional dyspnea. Leg swelling bilaterally. Review of Systems ROS Unobtainable: Denies due to encephalopathy Constitutional Constitutional ED: Denies chills or fever(s) Eyes Eyes: Denies blurry vision ENT ENT ED: Denies ear pain Cardiovascular Cardiovascular: Denies chest pain Respiratory/Chest Respiratory/Chest: Reports dyspnea and dyspnea on exertion; Denies cough Gastrointestinal Gastrointestinal: Denies abdominal pain, constipation, diarrhea, melena, nausea or vomiting Genitourinary Genitourinary ED: Denies dysuria or hematuria Musculoskeletal Musculoskeletal: Denies arthralgias Integumentary Denies abscess Neurologic Neurologic: Denies headache(s) Psychiatric Psychiatric: Denies anxiety Endocrine Endocrinology: Denies cold intolerance Hematologic/Lymphatic Hematologic/Lymphatic: Denies easy bleeding, easy bruising or lymphadenopathy Allergic/Immunologic Allergic/Immunologic ED: Denies mouth swelling, tongue swelling or urticaria EXAM Physical Exam Narrative Exam Narrative: 78-year-old male vital signs are stable. Pulse ox 98% on room air no hypoxia. Initial blood pressure 195/120. H EENT exam unremarkable. Neck nontender no JVD. No thyromegaly. Lungs clear to auscultation bilaterally. Heart irregular irregular rate about 120 no murmur. Chest wall nontender. Abdomen soft nontender. Moving all 4 extremities. 1+ pitting edema both legs. Calves are nontender without cords. Neurologically he is awake and alert with no focal motor deficits. Const Vital Signs: 09/17/23 18:05 09/17/23 18:58 Temperature 98.2 F Temperature Source Temporal Pulse Rate 99 Respiratory Rate 20 H Respiratory Effort Normal Non-Labored Respiratory Depth Normal Respiratory Pattern Normal Blood Pressure 195/120 H Blood Pressure Mean 145 Pulse Ox 98 Oxygen Delivery Method Room Air Positive well nourished and well developed; Negative for obese, cachectic, contractures or unkempt General Appearance ED: well developed and NAD; Negative for unkempt, cachectic or contractures Nutritional Appearance: Negative for cachectic or obese HEENT Reports moist mucous membranes Negative for atraumatic, trauma or tenderness Eyes PERRL and EOMs intact bilaterally General Eye ED: Negative for pale conjunctiva or scleral icterus Neck no lymphadenopathy, supple, no meningeal signs and no JVD General: Negative for tenderness Lymph Lymphatic: Negative for other Chest Wall Chest: Negative for other Resp normal respiratory effort and clear to auscultation bilaterally Effort and Inspection: Negative for pain with movement Auscultation: Negative for rales, rhonchi or wheezes Cardio S1 normal heart sound, S2 normal heart sound and no murmurs; Negative for regular rate or regular rhythm Rate: tachycardic Rhythm: abnormal rhythm GI non-tender, non-distended and no masses Inspection: Negative for other Auscultation: normoactive bowel sounds Palpation: soft; Negative for tender or guarding Back/Spine no CVA tenderness and normal to inspection General Back: Negative for CVA tenderness Extremity Negative for normal to inspection General Extremety ED: Yes edema; Negative for tenderness General Extremity: edema Neuro oriented x3 and CN's II-XII intact bilaterally Sensorium / Orientation: alert, oriented to person, oriented to place and oriented to time; Negative for orientation impaired, confused or lethargic Speech: speech normal Motor Exam: strength 5/5 throughout Psych mental status grossly normal Appearance: Negative for unkempt Attitude: No agitated Mood & Affect: Negative for depressed Thought Process: normal thought process Skin no wounds and skin turgor normal General Skin Exam: Negative for jaundice Lesions: no lesions Rashes: no rashes Trauma: Negative for abrasion or laceration MDM MDM MDM Narrative Medical decision making narrative: 78-year-old male presents with new onset exertional dyspnea and bilateral leg swelling consistent with new onset A-fib RVR with CHF. Labs to be obtained. To be treated with IV Cardizem. Patient will be admitted. The patient is doing well. He remains in A-fib rates in the 90s. Initially the nurse held the Cardizem and his rate well below 100. I will have them still give it. At this moment he does not need a drip. His exam otherwise is unchanged. He will be admitted have already spoken to the hospitalist. History & Record Review Discussion w/independent historian: Patient and Family Additional record(s) reviewed:: Prior inpatient record, Prior outpatient record, Prior ED visit and Prior labs Lab Data Attestation: I reviewed the patient's lab results. Lab results narrative: CBC shows a white count of 16.3. H&H of 14 and 45. Platelets 201. PT/INR of 13 and 1. BNP of 104. Chemistries show a gap of 3 BUN of 34 creatinine 1.2. Glucose 235. Troponin normal at 14. TSH normal at 1.6. Labs: Laboratory Results - last 24 hr 09/17/23 18:30 WBC 16.3 H RBC 4.61 Hgb 14.5 Hct 45.8 MCV 99.3 H MCH 31.5 MCHC 31.7 L RDW Std Deviation 51.1 H RDW Coeff of Herbert 14.2 Plt Count 201 MPV 10.4 Immature Gran % (Auto) 4.200 H Neut % (Auto) 74.6 H Lymph % (Auto) 12.5 L [place] % (Auto) 7.4 Eos % (Auto) 1.0 Baso % (Auto) 0.3 Absolute Neuts (auto) 12.2 H Absolute Lymphs (auto) 2.03 Nucleated RBC % 0 Differential Comment SCANNED PT 13.5 INR 1.0 Sodium 137 Potassium 4.7 Chloride 103 Carbon Dioxide 31.0 Anion Gap 3 L BUN 34 H Creatinine 1.24 Estim Creat Clear Calc 54.76 Est GFR (MDRD) Af Amer 73 Est GFR (MDRD) Non-Af 60 BUN/Creatinine Ratio 27.4 H Glucose 235 H Calcium 9.1 Troponin I High Sens 14 B-Natriuretic Peptide 104.8 H TSH 1.65 Radiography Chest X-Ray - ED: 1 View, Read by ED Physician, Read by Radiologist, Heart, Lungs, Mediastinum, Bony Structures, No Acute Disease and Chronic Changes Diagnostic Testing: Clinical Impression(s) from Imaging Studies Chest X-Ray 09/17/23 18:40 IMPRESSION: Nonacute portable x-ray examination of the chest. Electronically Signed: Malvin Castellano MD ([place]) at 18:48 EST , X-ray, portable, single view, interpreted both by the radiologist and myself shows no acute abnormality. Normal cardiac silhouette. Normal mediastinum. No CHF. No infiltrate. No effusions. Rhythm Strip Rhythm Strip: A-fib Rate: 126 Ectopy: None EKG Initial EKG: Attestation: I personally reviewed and interpreted this EKG as follows: Interpretation: No Acute Injury Pattern and Atrial Fibrillation Comments: Atrial fibrillation with rapid ventricular rate of 126 no acute signs of AR or ischemia. Discharge Plan Dx/Rx/DC Orders Clinical Impression: Acute dyspnea, CHF (congestive heart failure), Atrial fibrillation, new onset, History of diabetes mellitus, Atrial fibrillation with RVR Disposition Disposition: Acute Care [facility]
[2023-09-17 18:39] LABS: Absolute Lymphocyte Count 2.03 X10^3/uL (0.83-4.51); Absolute Neutrophil Count 12.2 X10^3/uL (2.0-7.7); Basophil# 0.05 X10^3/uL; Basophil% 0.3 % (0-1); Eosinophil# 0.16 X10^3/uL; Hematocrit 45.8 % (40-54); Hemoglobin 14.5 g/dL (13.0-16.5); Lymphocyte # 2.03 X10^3/ul (0.83-4.51); Lymphocyte % 12.5 % (19-41); Mean Corp Hgb Conc 31.7 g/dL (32-36); Mean Corpuscular Hgb 31.5 pg (27.0-32.0); Mean Corpuscular Volume 99.3 fL (80-94); Mean Platelet Vol. 10.4 fl (6.2-12.0); Monocyte# 1.21 X10^3/uL; Monocyte% 7.4 % (0-10); NRBC Flagged by Analyzer 0 % (0-5); Neutrophil # 12.15 X10^3/uL (2.7-7.7); Neutrophil % 74.6 % (47-70); POSITIVE MORPHOLOGY YES; Platelet Count 201 K/mm3 (150-450); RBC Distribution Width CV 14.2 % (11.6-14.6); RBC Distribution Width SD 51.1 fl (35.1-43.9); Red Blood Count 4.61 M/mm3 (4.6-6.2); White Blood Count 16.3 K/mm3 (4.4-11.0)
--- NOTE | 2023-09-17 18:40 | RAD_ITS ---
STUDY: X-RAY CHEST REASON FOR EXAM: Male, 78 years old. chest pain TECHNIQUE: AP COMPARISON: None. FINDINGS: EKG leads project over the chest. The lungs are clear and expanded. There is no demonstrated pleural abnormality. Normal size heart. Normal mediastinum and tj. Normal visualized pulmonary arteries. There is atherosclerotic tortuosity of the aortic arch and descending thoracic aorta. Normal visualized thoracic spine. Normal visualized ribs, clavicles, and shoulders. There is no demonstrated abnormality of the visualized soft tissue structures of the upper abdomen. RAD/Chest 1 View (Portable) IMPRESSION: Nonacute portable x-ray examination of the chest. Electronically Signed: Malvin Castellano MD ([place]) at 18:48 EST ,
[2023-09-17 18:42] LABS: Differential Indicated SCAN CRITERIA MET
[2023-09-17 18:48] LABS: Prothrombin Time (Protime)PT. 13.5 SECONDS (11.7-14.9)
[2023-09-17 18:55] LABS: Differential Comment SCANNED
--- NOTE | 2023-09-17 18:57 | ED.RN ---
per dr guzmán to hold cardizem at this time and to notify him if hr is above 100.
[2023-09-17 18:58] LABS: BNP,B-Type NATRIURETIC PEPTIDE 104.8 pg/mL (0-100)
[2023-09-17 19:06] LABS: Anion Gap 3 (5-15); BUN 34 mg/dL (7-18); BUN/Creat Ratio 27.4 RATIO (10-20); Calcium,Total 9.1 mg/dL (8.5-10.1); Chloride 103 mmol/L (98-107); Creatinine, Serum 1.24 mg/dL (0.70-1.30); EST Glomerular Filtration Rate 60 mL/min (>60); Est Glom Filt Rate - Afr Amer 73 mL/min (>60); Estimated Creatinine Clearance 54.76 ml/min; Glucose 235 mg/dL (74-106); Potassium 4.7 mmol/L (3.5-5.1); Sodium Level 137 mmol/L (136-145); Thyroid Stim Hormone (TSH) 1.65 uIU/mL (0.358-3.74); Troponin-I HS 14 pg/mL (3.0-78.0)
--- NOTE | 2023-09-17 19:18 | HP.PCM.HOS_ITS ---
HPI - General General Date of Admission: 09/17/23 Date of Service: 09/17/23 Chief Complaint: Dyspnea, worse with exertion, BL LE edema. HPI Narrative The patient is a 78 y/o M w/ PMHx: Diabetes mellitus type II, Carotid disease, HTN, HLD, PAOD, Chronic neuropathy who presents to the [facility] ED on 09/17/23 with history of exertional dyspnea with increased lower extremity swelling worsening over the last several days with no recent URI type symptoms reportedly recently diagnosed with diabetes and started on medication with weight gain since an onset of dyspnea for approximately 5 days and as noted more severe with exertion with no chest discomfort or any recent fevers or chills prompting eventual ED evaluation. Of note on evaluation of previous records patient has frequently stated history of irregular heart rhythm but from records has noted no previous cardiac evaluation or follow-up. It is a potential that patient's had this inte rmittently undiagnosed. Review of previous EKGs in the [facility] system have not demonstrated any A-fib in the past. Work-up in the ED included T98.2, heart rate 99 however heart rate vacillated in the ED into the 130s, BP 195/90, respiratory rate 20, 98% on room air, EKG with atrial fibrillation with RVR, CBC with WBC 16.3, hemoglobin 14.5, platelet 201 with left shift, chest x-ray with no acute cardiopulmonary findings, unremarkable coags, BMP with BUN/creatinine 34/1.24, glucose 235, troponin 14, BNP 104.8, TSH 1.65. In the ED patient administered cardizem 25 mg IV x 1. [facility] Medical History Arthritis Back pain Bilateral carotid artery stenosis H/o fracture to left knee Herpes History of irregular heartbeat HTN (hypertension) Injury of back Non-smoker Peripheral arterial occlusive disease Syncope Wears dentures Home Medications acyclovir 200 mg capsule 200 mg PO QODAY herpes 10/10/20 [History Last Taken 02/09/22] aspirin 81 mg tablet,delayed release 81 mg PO DAILY heart 01/14/21 [History Last Taken 09/05/22] lisinopril 20 mg tablet 20 mg PO DAILY HTN 05/14/21 [History Last Taken 02/10/22 04:45 20 mg] gabapentin 800 mg tablet 400 mg PO TID pain 12/24/21 [History Last Taken 02/10/22] trazodone 100 mg tablet 50 mg PO QHS sleep 12/24/21 [History Last Taken 02/09/22] ibuprofen-diphenhydramine citrate 200 mg-38 mg tablet (Advil PM) 2 cap PO QHS sleep 02/03/22 [History Last Taken Unknown] melatonin 10 mg tablet 20 mg PO QHS sleep 02/10/22 [History Last Taken 02/09/22] oxycodone-acetaminophen 10 mg-325 mg tablet 1 tab PO Q4H PRN PRN Pain 02/10/22 [History Last Taken 09/06/22 08:45] magnesium oxide 500 mg tablet (Ocasio) 500 mg PO BID 07/30/22 [History Last Taken Unknown] ondansetron HCl 4 mg tablet 4 mg PO Q6H PRN Nausea 07/30/22 [History Last Taken Unknown] Allergy/AdvReac Type Severity Reaction Status Date / Time tramadol [From [facility]] Allergy Severe near Verified 09/17/23 18:05 Family History Mother Hypertension CVA (cerebral vascular accident) Brother Aneurysm Surgical History History of back surgery History of colonoscopy History of endarterectomy History of knee surgery History of tonsillectomy Social History household members: spouse housing: house Smoking Status: Never smoker alcohol intake: never substance use type: does not use what type of physical activity do you participate in: none ROS ROS Narrative Admission Review of Systems: CONSTITUTIONAL: No weight loss, fever, chills, + weakness or fatigue. HEENT: Eyes: No visual loss, blurred vision, double vision or yellow sclerae. Ears, Nose, Throat: No hearing loss, sneezing, congestion, runny nose or sore throat. SKIN: No rash or itching, lesions, wounds. CARDIOVASCULAR: + Edema, orthopnea, No chest pain, palpitations, syncopal events. RESPIRATORY: + Shortness of breath noted to be worse with exertion. No cough or sputum, wheezing, hemoptysis. GASTROINTESTINAL: No anorexia, nausea, vomiting or diarrhea, abdominal pain, melena, BRBPR. GENITOURINARY: No dysuria, frequency, urgency or retention. NEUROLOGICAL: No headache, dizziness, syncope, paralysis, ataxia, numbness or tingling in the extremities, focal weakness, change in bowel or bladder control, seizure. MUSCULOSKELETAL: + muscle, back pain, joint pain or stiffness. HEMATOLOGIC: No anemia, bleeding or bruising. LYMPHATICS: No enlarged nodes. No history of splenectomy. PSYCHIATRIC: No history of depression or anxiety. ENDOCRINOLOGIC: No reports of sweating, cold or heat intolerance. No polyuria or polydipsia. ALLERGIES: No history of asthma, hives, eczema or rhinitis. Vital Signs Vital Signs Vital Signs: 09/17/23 18:05 09/17/23 18:58 Temperature 98.2 F Temperature Source Temporal Pulse Rate 99 Respiratory Rate 20 H Respiratory Effort Normal Non-Labored Respiratory Depth Normal Respiratory Pattern Normal Blood Pressure 195/120 H Blood Pressure Mean 145 Pulse Ox 98 Oxygen Delivery Method Room Air Weight Weight: 199 lb 1.239 oz Body Mass Index (BMI) 27.0 Physical Exam Narrative Physical Examination: General: Awake, alert, oriented x 3 and cooperative, seated upright in the ED bed, fatigued, denies any significant dyspnea currently or chest pain. Skin: Normal color, normal turgor, no icterus, no cyanosis except occasional very staged ecchymoses primarily to the extremities. HEENT: AT/NC, EOMI, PERRLA, MMM, no carotid bruits, no marked JVD noted however thickened neck makes evaluation difficult. Lungs: Mildly diminished, greater bases, proper effort, no rales, ronchi or wh eezing. Heart: Irregular irregular; no gallop, rub audible. Abdomen: Soft, overweight, NTTP, ND, distant normal BS, no HSM. Extremities: No cyanosis, no clubbing, pedal to proximal castaneda 2+ pitting edema bilaterally. Neurological: Patient awake, alert, oriented as noted, cognitive function intact; pupils equally reactive to light and accommodation, cranial nerves II- XII grossly normal, moving all 4 extremities, no focal deficits, strength moderately globally decreased secondary to acute presentation. Psychiatric: Affect appears fatigued, no acute evidence of depressive or anxiety feelings. Results Lab / Micro Data 09/17/23 18:30 11/18/23 18:30 Labs: Laboratory Results - last 24 hr 09/17/23 18:30: WBC 16.3 H, RBC 4.61, Hgb 14.5, Hct 45.8, MCV 99.3 H, MCH 31.5, MCHC 31.7 L, RDW Std Deviation 51.1 H, RDW Coeff of Herbert 14.2, Plt Count 201, MPV 10.4, Immature Gran % (Auto) 4.200 H, Neut % (Auto) 74.6 H, Lymph % (Auto) 12.5 L, [place] % (Auto) 7.4, Eos % (Auto) 1.0, Baso % (Auto) 0.3, Absolute Neuts (auto) 12.2 H, Absolute Lymphs (auto) 2.03, Nucleated RBC % 0, Differential Comment SCANNED, PT 13.5, INR 1.0, Sodium 137, Potassium 4.7, Chloride 103, Carbon Dioxide 31.0, Anion Gap 3 L, BUN 34 H, Creatinine 1.24, Estim Creat Clear Calc 54.76, Est GFR (MDRD) Af Amer 73, Est GFR (MDRD) Non-Af 60, BUN/Creatinine Ratio 27.4 H, Glucose 235 H, Calcium 9.1, Troponin I High Sens 14, B-Natriuretic Peptide 104.8 H, TSH 1.65 Rhythm Strip Rhythm Strip: A-fib Rate: 126 Ectopy: None Imagaing Radiology Impression Chest X-Ray 09/17/23 18:40 IMPRESSION: Nonacute portable x-ray examination of the chest. Electronically Signed: Malvin Castellano MD (Brooks) at 18:48 EST Reading Location ID and State: [facility] / [place] , Service support , Assessment & Plan Assessment/Plan (1) Atrial fibrillation with RVR: PLAN: Plan The patient is a 78 y/o M w/ PMHx: Diabetes mellitus type II, Carotid disease, HTN, HLD, PAOD, Chronic neuropathy who presents to the [facility] ED on 09/17/23 with history of exertional dyspnea with increased lower extremity swelling worsening over the last several days with no recent URI type symptoms reportedly recently diagnosed with diabetes and started on medication with weight gain since an onset of dyspnea for approximately 5 days and as noted more severe with exertion with no chest discomfort or any recent fevers or chills prompting eventual ED evaluation. #1. Paroxsymal atrial fibrillation w/ RVR with resulting acute overload: EKG in ED w/ atrial fibrillation w/ RVR. Patient administered IV Cardizem in ED. Will admit to PCU, maintain on telemetry, obtain cardiac enzyme serial set, obtain magnesium level, obtain ECHO, TSH level already obtained per ED note to be normal range 1.65. Will initiate therapeutic Lovenox pending investigation of oral NOAC cost. Given rate improvement with pulse dose IV cardizem will start oral metoprolol; however, if recurrent may consider drip start. Will pulse dose with IV Lasix x1 now, monitor I/Os. We will place neck Maldonado wraps with lower extremity elevation. #2. Hypertension: Continue home lisinopril, adding metoprolol as noted, will also x 1 pulse IV Lasix as noted, PRN hydralazine. #3. Hyperlipidemia: Noted history, not on statin therapy, will add low dose statin given age. Most recent FLP noted 07/11/2023 with triglycerides 176, total cholesterol 153, LDL 72, VLDL 35, HDL 46 #4. PAOD, carotid disease: Status post previous endarterectomy, we will continue aspirin, adding statin as noted, continue hypertensive regimen as noted, continue diabetic regimen as noted. Also is noted maintaining on therapeutic Lovenox pending reevaluation. #5. Diabetes mellitus type II: Clarifying home regimen however at this time will hold any oral regimen, will maintain on ADA diet, accu checks w/ ISS, most recent hemoglobin A1c noted 07/11/2023 7.8%. #6. Chronic neuropathy: We will continue patient home gabapentin regimen. #7. DVT prophylaxis: Therapeutic Lovenox as noted. #8. CODE status: Patient HCPOA and living will are not in place. Patient who is present would be his decision maker. Discussed CODE status at length including difference between FULL code, DNR-CCA and DNR-CC status. Following discussions about the differences in these status, requested Full Code status. Advanced Care Planning Face to Face Time: 16 minutes. Charges/Coding Visit Charges Inpatient E&M: 68326 Init Hosp L3 Procedures Hospitalists Procedures: 23786 Advncd Care Plan 30 Min
[2023-09-17] MEDS: dilTIAZem 25 MG/5 ML Vial IV BOLUS (19:37)
[2023-09-17 19:58] LABS: Magnesium 2.5 mg/dL (1.6-2.6)
--- NOTE | 2023-09-17 20:03 | ECHOD_ITS ---
Reason For Study: Afib, AFlutter Procedure This was a 2D Doppler, Color Flow transthoracic echocardiogram. Exam performed portable in patient room. Left Ventricle Normal LV size. Mild concentric left ventricular hypertrophy. The left ventricular ejection fraction is 70 %. Stage 1 diastolic dysfunction. Right Ventricle Normal right ventricle. Atria The left and right atria are normal. Mitral Valve Trivial mitral valve insufficiency. Tricuspid Valve Trivial tricuspid valve insufficiency. Normal pulmonary artery pressure. Aortic Valve Trisinus/trileaflet aortic valve. Mild (1+) aortic valve insufficiency. Pulmonic Valve The pulmonic valve is not well visualized. Mild (1+) pulmonic valve insufficiency. Great Vessels Normal sized aortic root. Pericardium/Pleural No pericardial effusion. MMode/2D Measurements & Calculations LVIDd: 3.4 cm IVSd: 1.4 cm Ao root diam: 3.3 cm LVIDs: 2.1 cm LVPWd: 1.1 cm RVDd: 2.7 cm FS: 37.1 % LAV(MOD-bp): 17.3 ml LVAd ap4: 14.5 cm2 SV(MOD-sp4): 17.2 ml LAV(MOD-bp) Indexed: 8.3 ml/m2 LVLd ap4: 6.4 cm LAV(MOD-sp2): 13.7 ml EDV(MOD-sp4): 27.3 ml LAV(MOD-sp4): 14.1 ml EDV(sp4-el): 27.7 ml LVAs ap4: 7.7 cm2 LVLs ap4: 5.4 cm ESV(MOD-sp4): 10.1 ml ESV(sp4-el): 9.5 ml EF(MOD-sp4): 62.9 % EF(sp4-el): 65.9 % SV(sp4-el): 18.3 ml LA A4 area: 8.1 cm2 LA dimension(2D): 2.9 cm RA A4 area: 7.3 cm2 TAPSE: 1.8 cm Time Measurements MV dec time: 0.18 sec Doppler Measurements & Calculations MV E max alvarez: 38.4 cm/sec Lat Peak E' Alvarez: 9.5 cm/sec Med Peak E' Alvarez: 8.6 cm/sec MV A max alvarez: 58.6 cm/sec E/E' lat: 4.0 E/E' med: 4.5 MV E/A: 0.66 Ao V2 max: 113.8 cm/sec LV V1 max: 90.2 cm/sec MV dec slope: 211.0 cm/sec2 Ao max P.2 mmHg LV V1 max P.3 mmHg Ao V2 mean: 89.1 cm/sec LV V1 mean P.3 mmHg Ao mean P.3 mmHg LV V1 mean: 75.3 cm/sec Ao V2 VTI: 19.0 cm LV V1 VTI: 17.8 cm AV (velocity ratio): 0.94 PA V2 max: 72.9 cm/sec TR max alvarez: 241.7 cm/sec TR max P.4 mmHg ECHO/Echo Complete Interpretation Summary Mild concentric left ventricular hypertrophy. The left ventricular ejection fraction is 70 %. Stage 1 diastolic dysfunction. Mild (1+) aortic valve insufficiency. Mild (1+) pulmonic valve insufficiency. Ordering Physician: Joan Diop Referring Physician: Delta Blair Performed By: Susana Bianchi, JONO, RVT
[2023-09-17 21:07] LABS: Troponin-I HS 15 pg/mL (3.0-78.0)
[2023-09-17] MEDS: Furosemide 20 MG/2 ML VIAL IV (22:17)
[2023-09-17] MEDS: 0.9% Saline Lock 10 ML Syringe IV (22:18)
[2023-09-17] MEDS: Metoprolol Tartrate 25 MG Tablet PO (22:36)
[2023-09-17] MEDS: Insulin Lispro 100 UNIT/ML INSULN.PEN SC (22:37)
[2023-09-17] MEDS: Atorvastatin Calcium 10 MG Tablet PO (22:37)
[2023-09-17] MEDS: Enoxaparin 100 MG/ML Syringe 90 MG SC (22:37)
[2023-09-17] MEDS: oxyCODONE 5 MG Tablet 10 MG PO (22:37)
[2023-09-17] MEDS: Gabapentin 400 MG Capsule PO (22:59)
[2023-09-17 23:17] LABS: Bedside Glucose 193 mg/dL (74-106)
[2023-09-18] VITALS (8 sets, daily range): BP systolic 111–176; BP diastolic 59–83; PULSE 68–94; RESP 14–16; TEMP 36.6–37.1; O2SAT 94–99; BMI 26.5
[2023-09-18 00:29] LABS: Troponin-I HS 17 pg/mL (3.0-78.0)
[2023-09-18] MEDS: cycloBENZAPRine HCl 10 MG Tablet PO ×2 (03:17→14:29)
[2023-09-18] MEDS: hydrALAZINE 20 MG/ML Vial 10 MG IV (03:26)
[2023-09-18] MEDS: 0.9% Saline Lock 10 ML Syringe IV ×3 (03:26→21:08)
[2023-09-18] MEDS: Acetaminophen 325 MG Tablet 650 MG PO (03:26)
[2023-09-18 06:16] LABS: Absolute Lymphocyte Count 3.86 X10^3/uL (0.83-4.51); Absolute Neutrophil Count 10.8 X10^3/uL (2.0-7.7); Basophil# 0.16 X10^3/uL; Basophil% 0.9 % (0-1); Eosinophil# 0.31 X10^3/uL; Eosinophils% 1.8 % (0-5); Hemoglobin 14.4 g/dL (13.0-16.5); Lymphocyte # 3.86 X10^3/ul (0.83-4.51); Lymphocyte % 22.3 % (19-41); Mean Corp Hgb Conc 33.5 g/dL (32-36); Mean Corpuscular Hgb 32.8 pg (27.0-32.0); Mean Corpuscular Volume 97.9 fL (80-94); Mean Platelet Vol. 10.1 fl (6.2-12.0); Monocyte# 1.39 X10^3/uL; NRBC Flagged by Analyzer 0 % (0-5); Neutrophil # 10.83 X10^3/uL (2.7-7.7); Neutrophil % 62.6 % (47-70); Platelet Count 172 K/mm3 (150-450); RBC Distribution Width CV 14.1 % (11.6-14.6); RBC Distribution Width SD 50.9 fl (35.1-43.9); Red Blood Count 4.39 M/mm3 (4.6-6.2); White Blood Count 17.3 K/mm3 (4.4-11.0)
[2023-09-18] MEDS: Insulin Lispro 100 UNIT/ML INSULN.PEN SC ×4 (06:31→21:15)
[2023-09-18] MEDS: Gabapentin 400 MG Capsule PO ×3 (06:32→21:02)
[2023-09-18 06:52] LABS: ALB/GLOB Ratio 0.9 RATIO (0.9-2.4); AST(SGOT) 25 U/L (15-37); Alanine Aminotransfer ALT/SGPT 44 U/L (16-61); Albumin, Serum 3.2 g/dL (3.2-5.0); Alkaline Phosphatase 58 U/L (45-117); Anion Gap 7 (5-15); BUN 32 mg/dL (7-18); BUN/Creat Ratio 33.9 RATIO (10-20); Calcium,Total 8.6 mg/dL (8.5-10.1); Chloride 104 mmol/L (98-107); Creatinine, Serum 0.94 mg/dL (0.70-1.30); EST Glomerular Filtration Rate 82 mL/min (>60); Est Glom Filt Rate - Afr Amer 99 mL/min (>60); Estimated Creatinine Clearance 72.23 ml/min; Globulin 3.6 g/dL (2.2-4.2); Glucose 140 mg/dL (74-106); Protein, Total 6.8 g/dL (6.4-8.2); Sodium Level 135 mmol/L (136-145)
[2023-09-18 06:53] LABS: Bedside Glucose 156 mg/dL (74-106)
[2023-09-18] MEDS: Metoprolol Tartrate 25 MG Tablet PO ×2 (08:03→21:03)
[2023-09-18] MEDS: Lisinopril 20 MG Tablet PO (08:03)
[2023-09-18] MEDS: Aspirin E.C. 81 MG Tablet PO (08:03)
[2023-09-18] MEDS: Enoxaparin 100 MG/ML Syringe 90 MG SC ×2 (08:04→21:03)
--- NOTE | 2023-09-18 08:43 | PN.HOSP_ITS ---
Reason for Visit Reason for Visit: Diagnoses Unspecified atrial fibrillation (09/17/23) Subjective Subjective Patient is a 78-year-old gentleman admitted with shortness of breath found to be in acute congestive heart failure. Patient was also found to have A-fib with RVR admitted to monitored bed for further management Objective Data Objective Data Vital Signs: Vital Signs Temp Pulse Resp BP Pulse Ox O2 Del Method O2 Flow Rate 97.9 F 70 16 111/62 99 Room Air 2 09/18/23 07:58 09/18/23 08:03 09/18/23 07:58 09/18/23 07:58 09/18/23 07:58 09/18/23 07:58 09/18/23 03:20 Oxygen Flow Rate (L/min) 2 Oxygen Delivery Method Room Air Weight: 88.8 kg Body Mass Index (BMI) 26.5 Lab / Micro Data 09/18/23 06:03 09/18/23 06:03 Labs: Laboratory Results - last 24 hr 09/17/23 18:30: WBC 16.3 H, RBC 4.61, Hgb 14.5, Hct 45.8, MCV 99.3 H, MCH 31.5, MCHC 31.7 L, RDW Std Deviation 51.1 H, RDW Coeff of Herbert 14.2, Plt Count 201, MPV 10.4, Immature Gran % (Auto) 4.200 H, Neut % (Auto) 74.6 H, Lymph % (Auto) 12.5 L, [place] % (Auto) 7.4, Eos % (Auto) 1.0, Baso % (Auto) 0.3, Absolute Neuts (auto) 12.2 H, Absolute Lymphs (auto) 2.03, Nucleated RBC % 0, Differential Comment SCANNED, PT 13.5, INR 1.0, Sodium 137, Potassium 4.7, Chloride 103, Carbon Dioxide 31.0, Anion Gap 3 L, BUN 34 H, Creatinine 1.24, Estim Creat Clear Calc 54.76, Est GFR (MDRD) Af Amer 73, Est GFR (MDRD) Non-Af 60, BUN/Creatinine Ratio 27.4 H, Glucose 235 H, Calcium 9.1, Magnesium 2.5, Troponin I High Sens 14, B- Natriuretic Peptide 104.8 H, TSH 1.65 09/17/23 20:40: Troponin I High Sens 15 09/17/23 22:14: POC Glucose 193 H 09/18/23 00:05: Troponin I High Sens 17 09/18/23 06:03: WBC 17.3 H, RBC 4.39 L, Hgb 14.4, Hct 43.0, MCV 97.9 H, MCH 32.8 H, MCHC 33.5 D, RDW Std Deviation 50.9 H, RDW Coeff of Herbert 14.1, Plt Count 172, MPV 10.1, Immature Gran % (Auto) 4.400 H, Neut % (Auto) 62.6, Lymph % (Auto) 22.3, [place] % (Auto) 8.0, Eos % (Auto) 1.8, Baso % (Auto) 0.9, Absolute Neuts (auto) 10.8 H, Absolute Lymphs (auto) 3.86, Nucleated RBC % 0, Sodium 135 L, Potassium 4.0, Chloride 104, Carbon Dioxide 24.0, Anion Gap 7, BUN 32 H, Creatinine 0.94, Estim Creat Clear Calc 72.23, Est GFR (MDRD) Af Amer 99, Est GFR (MDRD) Non-Af 82, BUN/Creatinine Ratio 33.9 H, Glucose 140 H, Calcium 8.6, Total Bilirubin 0.30, AST 25, ALT 44, Alkaline Phosphatase 58, Total Protein 6.8, Albumin 3.2, Globulin 3.6, Albumin/Globulin Ratio 0.9 09/18/23 06:30: POC Glucose 156 H Radiography Diagnostic Testing: Radiology Impression Chest X-Ray 09/17/23 18:40 IMPRESSION: Nonacute portable x-ray examination of the chest. Electronically Signed: Malvin Castellano MD (Brooks) at 18:48 EST Reading Location ID and State: [facility] / [place] , Service support , Rhythm Strip Rhythm Strip: A-fib Rate: 126 Ectopy: None Physical Exam Narrative GENERAL: cooperative HEENT: Atraumatic; normocephalic EYES; Anicteric, Normal Conjunctiva NECK; supple, normal thyroid, RESPIRATORY: Diminished to auscultation CARDIOVASCULAR: Irregular S1-S2 GI: soft, normoactive bowel sounds, : No Renal angle tenderness; EXTREMITIES: No edema, no clubbing, MUSCULOSKELETAL: no muscle wasting NEURO: Awake; no lateralizing signs. SKIN: No Rash PSYCH; Flat affect Assessment & Plan Assessment/Plan (1) Atrial fibrillation with RVR: PLAN: Plan Patient is a 78-year-old gentleman admitted with shortness of breath found to be in acute congestive heart failure. Patient was also found to have A-fib with RVR admitted to monitored bed for further management 1. Acute congestive heart failure ? Suspected congestive heart failure with preserved ejection fraction. Admitted to monitored bed managed with diuretics, strict input and output, daily weight, low-sodium diet as well as IV Lasix. As part of patient's management echo ordered for EF assessment 2. Paroxysmal A-fib with RVR ? Patient was started on Cardizem drip admitted to monitored bed ordered TSH serial cardiac enzymes and echo as part of patient's management patient was started on therapeutic Lovenox 2. Hypertension - Blood pressure controlled, home medications continued with dose adjustment as needed 4. Carotid artery disease ? With previous carotid endarterectomy 5. Diabetes mellitus type II -patient's oral hypoglycemics held. Placed on long acting insulin, Accu-Cheks a.c. and at bedtime and covered with sliding scale insulin 6. Dyslipidemia -Patient is on statin therapy, continued at home dose 7. Diabetic polyneuropathy ? Patient is on gabapentin 8. Chronic back pain ? Patient is followed by pain management has undergone previous epidural steroid injection 9. DVT prophylaxis - On enoxaparin Time spent in the patient's overall evaluation,decision-making process, review of diagnostic data, adjustment of management, discussion with other providers, nursing nursing and ancillary staff involved in patient's care documentation, 52 Minutes Charges/Coding Visit Charges Inpatient E&M: 02681 [facility] Hosp L3
[2023-09-18] MEDS: Acyclovir 200 MG Capsule PO (08:51)
[2023-09-18 12:05] LABS: Bedside Glucose 206 mg/dL (74-106)
[2023-09-18] MEDS: Furosemide 40 MG/4 ML Vial IV ×2 (14:22→21:02)
[2023-09-18] MEDS: oxyCODONE 5 MG Tablet 10 MG PO (14:29)
[2023-09-18 16:46] LABS: Bedside Glucose 173 mg/dL (74-106)
[2023-09-18] MEDS: Atorvastatin Calcium 10 MG Tablet PO (21:03)
[2023-09-18 23:02] LABS: Bedside Glucose 156 mg/dL (74-106)
[2023-09-19 03:00] VITALS: BP 97/72; PULSE 88; RESP 16; TEMP 37; O2SAT 95
[2023-09-19 04:48] VITALS: BMI 26.1
[2023-09-19 06:09] LABS: Hematocrit 47.9 % (40-54); Hemoglobin 15.8 g/dL (13.0-16.5); Mean Corpuscular Hgb 31.8 pg (27.0-32.0); Mean Corpuscular Volume 96.4 fL (80-94); Mean Platelet Vol. 10.7 fl (6.2-12.0); POSITIVE COUNT YES; POSITIVE DIFFERENTIAL YES; POSITIVE MORPHOLOGY YES; Platelet Count 198 K/mm3 (150-450); RBC Distribution Width CV 14.2 % (11.6-14.6); RBC Distribution Width SD 49.8 fl (35.1-43.9); Red Blood Count 4.97 M/mm3 (4.6-6.2); White Blood Count 16.4 K/mm3 (4.4-11.0)
[2023-09-19] MEDS: Furosemide 40 MG/4 ML Vial IV (06:19)
[2023-09-19] MEDS: Insulin Lispro 100 UNIT/ML INSULN.PEN SC ×2 (06:20→11:24)
[2023-09-19] MEDS: Gabapentin 400 MG Capsule PO (06:20)
[2023-09-19 06:22] LABS: Differential Indicated MANUAL DIFF
[2023-09-19] MEDS: 0.9% Saline Lock 10 ML Syringe IV (06:23)
[2023-09-19 07:12] VITALS: O2SAT 96
[2023-09-19 07:14] LABS: Anion Gap 11 (5-15); BUN 43 mg/dL (7-18); BUN/Creat Ratio 30.7 RATIO (10-20); Calcium,Total 9.3 mg/dL (8.5-10.1); Chloride 99 mmol/L (98-107); EST Glomerular Filtration Rate 52 mL/min (>60); Est Glom Filt Rate - Afr Amer 63 mL/min (>60); Glucose 135 mg/dL (74-106); Magnesium 2.3 mg/dL (1.6-2.6); Phosphorus 4.7 mg/dL (2.5-4.9); Potassium 4.5 mmol/L (3.5-5.1); Sodium Level 133 mmol/L (136-145)
[2023-09-19 07:19] LABS: Bedside Glucose 173 mg/dL (74-106)
--- NOTE | 2023-09-19 07:50 | PCM.DC ---
Discharge Instructions Diet Discharge Diet: No restrictions Activity Discharge Activity: Return to Normal Activity Weight Bearing Status: Weight bearing as tolerated Dressing / Incision Call your doctor if you observe: Fever of 101 or Higher, Coldness, Increased Pain, Numbness or Tingling, Change in Color, Inability to urinate, Inability to have a bowel movement, Shortness of breath, Dizziness, Fainting spells, Swelling in the ankles, Chest pain, Prolonged hiccupping, Increased palpitations (irregular heartbeat) and Calf discomfort Follow Up Care When: IN 2 WEEKS Test Results: Test results from this visit will be discussed in further detail at your follow-up appointment, if applicable. Discharge Plan Admission Admit Date/Time: 09/17/23 19:35 Primary Reason for Your Visit: New onset A-fib and CHF Attending Provider: Jian Dudley Primary Care Provider: Delta Blair Consulting Providers: Joan Diop; Sony Farrell Instructions Additional Instructions / Restrictions: Advised BMP in 3 days and follow-up PCP for increased creatinine. Hold Lasix and restart from 09/22/2023 in consultation with PCP after BMP. Discharge Orders/Prescriptions Prescriptions: New sennosides-docusate sodium [Stool Softener-Stimulant Laxat] 8.6-50 mg Tablet 2 tab PO BID PRN PRN (Reason: Constipation) Qty: 0 0RF metoprolol tartrate 25 mg Tablet 25 mg PO BID Qty: 60 2RF Rx Instructions: Hold for heart less than 50 or systolic blood pressure less than 100 mmHg. atorvastatin 20 mg tablet 20 mg PO QHS Qty: 30 2RF furosemide [Lasix] 40 mg tablet 40 mg PO BID Qty: 60 2RF Eliquis 5 mg tablet 5 mg PO BID Qty: 60 2RF Rx Instructions: Discontinue if platelet count drops less than 50,000 or hemoglobin less than 8 g% Continued acyclovir 200 mg capsule 200 mg PO QODAY Patient Comments: next dose due 09/18/23. gabapentin 800 mg tablet 400 mg PO TID aspirin 81 MG tablet,delayed release (DR/EC) 81 mg PO DAILY oxycodone-acetaminophen 10-325 mg tablet 1 tab PO Q4H PRN PRN (Reason: Pain) melatonin 10 mg Tablet 20 - 30 mg PO QHS ondansetron HCl 4 mg Tablet 4 mg PO Q6H PRN (Reason: Nausea) lovastatin 10 mg tablet 10 mg PO QHS Held lisinopril 20 mg Tablet 20 mg PO DAILY Hold Instructions: Hold for 5 days and then restart low-dose 10 mg daily with holding parameters, hold for SBP less than 130 mmHg Referrals / Follow Up: Delta Blair DO [Primary Care Provider] - Alok Bianchi CRANE MANAGER, CRANE MANAGER-C [Med Staff - [facility] Practice Prof] - Within 2 Weeks Disposition Disposition (needs filled in before D/C Order can be placed): Home, Self Care
--- NOTE | 2023-09-19 07:51 | PCM.DC.SUM ---
Providers Date of Admission: 09/17/23 Primary Care Physician: Dr. Delta Blair, DO Reason For Visit: PAF RVR Diagnosis Discharge Diagnosis (1) Atrial fibrillation with RVR: Status: Acute Code(s): I48.91 - Unspecified atrial fibrillation Plan Patient is a 78-year-old gentleman admitted with shortness of breath found to be in acute congestive heart failure. Patient was also found to have A-fib with RVR admitted to monitored bed for further management 1. Acute congestive heart failure ? Suspected congestive heart failure with preserved ejection fraction. Admitted to monitored bed managed with diuretics, strict input and output, daily weight, low-sodium diet as well as IV Lasix. As part of patient's management echo ordered for EF assessment 09/19: 2D echo EF 70%, mild concentric LVH. Stage I diastolic dysfunction, mild AR and mild PI. Creatinine went up 1.4. Hold lisinopril and furosemide. Patient is better diuresed. Advised BMP in 3 days and follow with PCP and then resume as per the lab result and fluid status. 2. Paroxysmal A-fib with RVR ? Patient was started on Cardizem drip admitted to monitored bed ordered TSH serial cardiac enzymes and echo as part of patient's management patient was started on therapeutic Lovenox 09/19: Enoxaparin discontinued patient discharged on Eliquis 5 mg twice daily. Discontinue if platelet count drops less than 50,000 or hemoglobin less than 8 g%. Prescription for metoprolol given. TSH normal. 2. Hypertension - Blood pressure controlled, home medications continued with dose adjustment as needed 4. Carotid artery disease ? With previous carotid endarterectomy 5. Diabetes mellitus type II -patient's oral hypoglycemics held. Placed on long acting insulin, Accu-Cheks a.c. and at bedtime and covered with sliding scale insulin 6. Dyslipidemia -Patient is on statin therapy, continued at home dose 7. Diabetic polyneuropathy ? Patient is on gabapentin 8. Chronic back pain ? Patient is followed by pain management has undergone previous epidural steroid injection 9. DVT prophylaxis - Discharge medication reconciliation done. Discharge follow-up instructions completed. Discharge process discussed with the patient and all questions were answered to patient's satisfaction. Follow with PCP in 1 to 2 weeks. Follow-up in cardiology clinic in 2 weeks. Total time spent, exact 35 minutes on discharge meds reconciliation, examination, coordination of care with nurses and ancillary staff, review of imaging and blood test and discussion with the patient on follow-up instructions. Medications at Discharge Home Medications acyclovir 200 mg capsule 200 mg PO QODAY herpes 10/10/20 aspirin 81 mg tablet,delayed release 81 mg PO DAILY heart 01/14/21 lisinopril 20 mg tablet 20 mg PO DAILY HTN 05/14/21 gabapentin 800 mg tablet 400 mg PO TID pain 12/24/21 melatonin 10 mg tablet 20 - 30 mg PO QHS sleep 02/10/22 oxycodone-acetaminophen 10 mg-325 mg tablet 1 tab PO Q4H PRN PRN Pain 02/10/22 ondansetron HCl 4 mg tablet 4 mg PO Q6H PRN Nausea 07/30/22 apixaban 5 mg tablet (Eliquis) 5 mg PO BID #60 tabs 09/19/23 atorvastatin 20 mg tablet 20 mg PO QHS #30 tabs 09/19/23 furosemide 40 mg tablet (Lasix) 40 mg PO BID #60 tabs 09/19/23 metoprolol tartrate 25 mg tablet 25 mg PO BID #60 tabs 09/19/23 sennosides 8.6 mg-docusate sodium 50 mg tablet (Stool Softener-Stimulant Laxative) 2 tab PO BID PRN PRN Constipation #0 tabs 09/19/23 Physical Exam Narrative Seen and examined. Patient is better diuresed. Denies any shortness of breath or chest pain. On environmental monitoring specialist patient is sinus rhythm. Physical exam General: Alert, Oriented x3, Cooperative HEENT: Atraumatic, PERRLA, EOMI, Normocephalic Oral: No Gingival or Mucosal Lesions/ Ulcerations Neck: Supple, No JVD, Negative Carotid Bruits Lungs: Air entry diminished in bilateral lung bases. No crepitation/rhonchi Cardiovascular: Regular rate, Regular Rhythm, Normal S1, Normal S2, mild systolic murmur. Abdomen: Bowel Sounds Present, Soft, Non Tender, Non-Distended : No renal angle tenderness. No suprapubic tenderness. Extremities: No edema, Capillary Refill Less than 3 Seconds Skin: No rashes, No breakdown Musculoskeletal: No Tenderness to Palpation of Joints or Extremities Neurological: Cranial nerves II-XII grossly intact, DTR 2+/4. No acute focal neurological deficit. Psych/Mental Status: Normal Affect, Appropriate. Weight / BMI Weight Weight: 192 lb 7.417 oz Body Mass Index (BMI) 26.1 ABG / Lab / Microbiology Data 09/19/23 04:46 09/19/23 04:46 Laboratory: Laboratory Results - last 24 hr 09/18/23 11:43: POC Glucose 206 H 09/18/23 16:13: POC Glucose 173 H 09/18/23 21:14: POC Glucose 156 H 09/19/23 04:46: WBC 16.4 H, RBC 4.97, Hgb 15.8, Hct 47.9, MCV 96.4 H, MCH 31.8, MCHC 33.0, RDW Std Deviation 49.8 H, RDW Coeff of Herbert 14.2, Plt Count 198, MPV 10.7, Neut % (Auto) Not Reportable, Sodium 133 L, Potassium 4.5, Chloride 99, Carbon Dioxide 23.0, Anion Gap 11, BUN 43 H, Creatinine 1.40 H, Estim Creat Clear Calc 48.50, Est GFR (MDRD) Af Amer 63, Est GFR (MDRD) Non-Af 52 L, BUN/Creatinine Ratio 30.7 H, Glucose 135 H, Calcium 9.3, Phosphorus 4.7, Magnesium 2.3 09/19/23 06:18: POC Glucose 173 H Meaningful Use Info Meaningful Use Diagnoses (Choose all that apply): None applicable Discharge Plan Admission Admit Date/Time: 09/17/23 19:35 Primary Reason for Your Visit: New onset A-fib and CHF Attending Provider: Jian Dudley Primary Care Provider: Delta Blair Consulting Providers: Joan Diop; Sony Farrell Instructions Additional Instructions / Restrictions: Advised BMP in 3 days and follow-up PCP for increased creatinine. Hold Lasix and lisinopril and restart from 09/22/2023 in consultation with PCP after BMP. Discharge Orders/Prescriptions Prescriptions: New sennosides-docusate sodium [Stool Softener-Stimulant Laxat] 8.6-50 mg Tablet 2 tab PO BID PRN PRN (Reason: Constipation) Qty: 0 0RF metoprolol tartrate 25 mg Tablet 25 mg PO BID Qty: 60 2RF Rx Instructions: Hold for heart less than 50 or systolic blood pressure less than 100 mmHg. atorvastatin 20 mg tablet 20 mg PO QHS Qty: 30 2RF furosemide [Lasix] 40 mg tablet 40 mg PO BID Qty: 60 2RF Eliquis 5 mg tablet 5 mg PO BID Qty: 60 2RF Rx Instructions: Discontinue if platelet count drops less than 50,000 or hemoglobin less than 8 g% Continued acyclovir 200 mg capsule 200 mg PO QODAY Patient Comments: next dose due 09/18/23. gabapentin 800 mg tablet 400 mg PO TID aspirin 81 MG tablet,delayed release (DR/EC) 81 mg PO DAILY oxycodone-acetaminophen 10-325 mg tablet 1 tab PO Q4H PRN PRN (Reason: Pain) melatonin 10 mg Tablet 20 - 30 mg PO QHS ondansetron HCl 4 mg Tablet 4 mg PO Q6H PRN (Reason: Nausea) Held lisinopril 20 mg Tablet 20 mg PO DAILY Hold Instructions: Hold for 5 days and then restart low-dose 10 mg daily with holding parameters, hold for SBP less than 130 mmHg Discontinued lovastatin 10 mg tablet 10 mg PO QHS Referrals / Follow Up: Delta Blair DO [Primary Care Provider] - Alok Bianchi NP, SPANISH LITERATURE PROFESSOR-C [Med Staff - Adv Practice Prof] - 10/10/23 2:15 pm Disposition Disposition (needs filled in before D/C Order can be placed): Home, Self Care Charges/Coding Visit Charges Inpatient E&M: 98913 Disch Hosp >30min
[2023-09-19 08:45] VITALS: BP 107/77; PULSE 85; RESP 15; TEMP 36.3; O2SAT 94
[2023-09-19 08:47] VITALS: PULSE 85
[2023-09-19] MEDS: Aspirin E.C. 81 MG Tablet PO (08:47)
[2023-09-19] MEDS: Enoxaparin 100 MG/ML Syringe 90 MG SC (08:47)
[2023-09-19] MEDS: Glucerna Shake 120 ML LIQUID PO ×2 (08:47→11:23)
[2023-09-19] MEDS: Metoprolol Tartrate 25 MG Tablet PO (08:47)
[2023-09-19 09:25] LABS: Lymphocyte 21 % (19-41); Monocyte 12 % (0-10); Myelocyte 3 % (0-0); Neutrophil-Segmented 64 % (47-70); Total Cells Counted 100 (MANUAL DIFF)
[2023-09-19 09:26] LABS: Absolute Neutrophil Count 10.5 X10^3/uL (2.0-7.7); Platelet Estimate ADEQUATE (ADEQ); Red Cell Morphology NORM C+C NORMAL (NORM C&C)
--- NOTE | 2023-09-19 11:15 | CASEMGMT ---
RN PONCHO Face to Face with patient for initial transition planning/care coordination assessment. RN CM introduced self and role at [facility]. Patient lying in bed, alert and oriented, at bedside. Patient willing to participate in assessment and is able to answer all questions appropriately. Care providers, pharmacy, and demographics verified. Patient wishes to discharge home, denies need for home health at this time. Patient states he has no further needs or concerns at this time. CM to follow for discharge planning needs that may arise. PCP: Rossy Specialists: none [facility] Insurance: Nasty Gal [facility] Prescription Benefit: yes Living Will/HPOA: none LNOK: Living Arrangements: Patient lives with in a single story home with no steps to enter. Patient is independent at home. Transportation: self, DME/HHC: Patient has raised toilet, cane, walker, and grab bars at home. No previous HHC or SNF. Disposition Plan: Patient to discharge home with family support and follow-up plans in place. Maribel FOSS, RN, CM
--- NOTE | 2023-09-19 11:18 | PHA.DC.MC.R ---
Pharmacy [facility] has performed discharge medication reconciliation and counseling for this patient. The patient's discharge medication list was reviewed for discrepancies and discrepancies were resolved. The patient was counseled on the following discharge medications and changes in medications for homegoing were reviewed. The Reason for Use, instructions for use, and potential side effects were reviewed for all new medications. The patient's questions regarding all of their medications were answered. 1. apixaban 5 mg PO BID 2. atorvastatin 20 mg PO daily 3. furosemide 40 mg PO BID 4. metoprolol tartrate 25 mg PO BID 5. senna/docusate 2 tablets PO BID PRN constipation The patient was able to verbally demonstrate an understanding of their discharge medications. The patient was counselled on new medications by pharmacy stock clerk Hunter. Medications at Discharge Home Medications acyclovir 200 mg capsule 200 mg PO QODAY herpes 10/10/20 aspirin 81 mg tablet,delayed release 81 mg PO DAILY heart 01/14/21 lisinopril 20 mg tablet 20 mg PO DAILY HTN 05/14/21 gabapentin 800 mg tablet 400 mg PO TID pain 12/24/21 melatonin 10 mg tablet 20 - 30 mg PO QHS sleep 02/10/22 oxycodone-acetaminophen 10 mg-325 mg tablet 1 tab PO Q4H PRN PRN Pain 02/10/22 ondansetron HCl 4 mg tablet 4 mg PO Q6H PRN Nausea 07/30/22 apixaban 5 mg tablet (Eliquis) 5 mg PO BID #60 tabs 09/19/23 atorvastatin 20 mg tablet 20 mg PO QHS #30 tabs 09/19/23 furosemide 40 mg tablet (Lasix) 40 mg PO BID #60 tabs 09/19/23 metoprolol tartrate 25 mg tablet 25 mg PO BID #60 tabs 09/19/23 sennosides 8.6 mg-docusate sodium 50 mg tablet (Stool Softener-Stimulant Laxative) 2 tab PO BID PRN PRN Constipation #0 tabs 09/19/23
[2023-09-19 11:35] LABS: Bedside Glucose 188 mg/dL (74-106)
--- NOTE | 2023-09-19 12:46 | CASEMGMT ---
Patient discharging on Eliquis. RN CM called [facility] to inquire about copay. Patient's copay is $47. KASHMIR ISAAC in to update patient regarding cost. Patient states it is affordable and will decline savings card at this time. Patient had no further questions or concerns.
[2023-09-19 13:43] VITALS: BP 97/46; PULSE 72; RESP 16; TEMP 36.1; O2SAT 94
[2023-09-20 10:10] LABS: Pathologist Review Reviewed
== END 2023-09-19 14:46 | disposition home or self-care (01) | DRG 291 ==
LOC: ED 18:28 → PCU 19:43
PROVIDERS: Internal Medicine; Admitting Provider Family Medicine; Emergency Provider Emergency Medicine; PCP Family Medicine; Visit Provider Internal Medicine
DX: I11.0 Hypertensive heart disease with heart failure (principal); E11.51 Type 2 diabetes mellitus with diabetic peripheral angiopathy without gangrene; I50.31 Acute diastolic (congestive) heart failure; E11.42 Type 2 diabetes mellitus with diabetic polyneuropathy; I48.0 Paroxysmal atrial fibrillation; I35.1 Nonrheumatic aortic (valve) insufficiency; E78.5 Hyperlipidemia, unspecified; M54.9 Dorsalgia, unspecified; G89.29 Other chronic pain; Z79.82 Long term (current) use of aspirin; Z79.899 Other long term (current) drug therapy
CPT/HCPCS: 36415; 71045; 80048; 80053; 82962; 83735; 83880; 84100; 84443; 84484; 85025; 85610; 93005; 93306; 94668; 96372; 96374; 96375; 96376; 97802; 99221; 99252; 99285; A4216; G0378; G0463; J1940

== ENCOUNTER → 2023-11-09 | Outpatient (CLI) | payer MEDICARE, SELFPAY ==
[2023-11-09 14:10] LABS: Absolute Lymphocyte Count 2.47 X10^3/uL (0.83-4.51); Absolute Neutrophil Count 13.8 X10^3/uL (2.0-7.7); Basophil# 0.16 X10^3/uL; Basophil% 0.9 % (0-1); Eosinophil# 0.07 X10^3/uL; Eosinophils% 0.4 % (0-5); Hematocrit 46.8 % (40-54); Hemoglobin 14.9 g/dL (13.0-16.5); Lymphocyte # 2.47 X10^3/ul (0.83-4.51); Lymphocyte % 13.2 % (19-41); Mean Corp Hgb Conc 31.8 g/dL (32-36); Mean Corpuscular Hgb 31.5 pg (27.0-32.0); Mean Corpuscular Volume 98.9 fL (80-94); Mean Platelet Vol. 10.3 fl (6.2-12.0); Monocyte# 1.47 X10^3/uL; Monocyte% 7.9 % (0-10); NRBC Flagged by Analyzer 0 % (0-5); Neutrophil # 13.77 X10^3/uL (2.7-7.7); Neutrophil % 73.5 % (47-70); Platelet Count 224 K/mm3 (150-450); RBC Distribution Width CV 13.4 % (11.6-14.6); RBC Distribution Width SD 48.5 fl (35.1-43.9); Red Blood Count 4.73 M/mm3 (4.6-6.2); White Blood Count 18.7 K/mm3 (4.4-11.0)
[2023-11-09 14:46] LABS: BNP,B-Type NATRIURETIC PEPTIDE 40.1 pg/mL (0-100)
[2023-11-09 14:57] LABS: Anion Gap 8 (5-15); BUN 38 mg/dL (7-18); BUN/Creat Ratio 28.8 RATIO (10-20); Calcium,Total 9.6 mg/dL (8.5-10.1); Chloride 101 mmol/L (98-107); Creatinine, Serum 1.32 mg/dL (0.70-1.30); EST Glomerular Filtration Rate 56 mL/min (>60); Est Glom Filt Rate - Afr Amer 68 mL/min (>60); Glucose 159 mg/dL (74-106); Potassium 4.5 mmol/L (3.5-5.1); Sodium Level 137 mmol/L (136-145)
== END | disposition home or self-care (01) ==
LOC: LAB 13:47
PROVIDERS: PCP Family Medicine; Referring Provider Internal Medicine Cardiovascular Disease; Visit Provider Internal Medicine Cardiovascular Disease
DX: I11.0 Hypertensive heart disease with heart failure (principal); I50.9 Heart failure, unspecified; E11.9 Type 2 diabetes mellitus without complications; R06.02 Shortness of breath; R53.82 Chronic fatigue, unspecified
CPT/HCPCS: 36415; 80048; 83880; 85025

== ENCOUNTER → 2023-12-16 | Outpatient (CLI) | payer MEDICARE, SELFPAY ==
--- OUTSIDE RECORDS SUMMARY | 2023-12-16 08:56 | XMS RPT_ITS | CCD ---
Author Name Unknown Address [address] [place] [address] Organization [facility] Care Team Providers Care Beauty Culture Teacher Name Role Phone Shane Rojas Unavailable Unavailable Unavailable Primary Care Provider Unavailabl e Allergies Allergy Classification Reported Allergen(s) Allergy Type Date of Onset Reaction(s) Facility (2 sources) traMADol; Translations: [TRAMADOL HCL] Drug Allergy 02-14-2006 [facility] Medications Completed/Discontinued Medications Medication Drug Class(es) Dates Sig (Normalized) Sig (Original) lisinopril 20 mg oral tablet (1 source) Angiotensin Converting Enzyme Inhibitor Start: 12-02-2011 take 0.5 tablet by mouth once daily lisinopril 20 mg ORAL tablet Take 0.5 tablets by mouth once daily. 30 tablet 0 12/02/2011 Active Problems Active Problems Problem Classification Problem Date Documented Da te Episodic/Chronic Other lower respiratory disease (1 source) Dyspnea; Translations: [Shortness of breath] 09-16-2023 Episodic Unclassified (1 source) Unknown / UNK(Unknown) Onset: 11-08-2017 Past or Other Problems Problem Classification Problem Date Documented Da te Episodic/Chronic Anal and rectal conditions (1 source) Anal fissure; Translations: [Anal fissure, unspecified] Onset: 06-11-2009 06-11-2009 Episodic Gastrointestinal hemorrhage (1 source) Hematochezia; Translations: [Melena] Onset: 06-11-2009 06-11-2009 Episodic Unclassified (1 source) E11.65 Onset: 11-08-2017 Results Test Name Value Interpretation Reference Range Facil ity Encounters Encounter Date Encounter Type Care Provider Facility Start: 09-16-2023 End: 09-16-2023 ambulatory Facility:[facility] Start: 09-16-2023 End: 09-16-2023 Patient encounter procedure Dali Randall APRN.CNP Work Phone: [facility] Plan of Treatment Date Care Activity Detail Author Start: 07-01-2023 Covid-19 Vaccine ( season) Covid-19 Vaccine () [facility] Start: 07-01-2023 Influenza vaccination Influenza Vacc ine (#1) [facility] Start: 10-31-2022 Advance Directive Discussion Advance Directive Discussion [facility] Start: 10-31-2022 Depression Assessment Depression Ass essment [facility] Start: 2011 Pneumococcal Vaccine : 65+ (1 - PCV) Pneumococcal Vaccine: 65+ (1 - PCV) [facility] Start: 2006 RSV Vaccine (1 - 1-d ose 60+ series) RSV Vaccine (1 - 1-dose 60+ series) [facility] Start: 1996 Shingrix Vaccine (1 of 2) Shingrix V accine (1 of 2) [facility] Start: 1991 Diabetes Screening Diabetes Screenin g [facility] Start: 1965 Urine microalbumin profile DTaP,Tdap,Td Vaccine (1 - Tdap) [facility] Start: 1964 Hepatitis C Screening Hepatitis C Sc azning [facility] Payers Date Payer Category Payer Medicare [id number] 2011 Medicare MEDICARE MEDICAR E B [id number] 2011-[place] [address] Medicare [id number] Social History Date Type Detail Facility Start: 12-02-2011 Tobacco smoking stat us NHIS Ex-smoker [facility] Work Phone: History of tobacco use Current smoker [facility] Work Phone: Start: 12-02-2011 Tobacco use and exposure Smokeless tobacco non-user [facility] Work Phone: Start: 12-02-2011 Alcohol intake Current drinke r of alcohol (finding) [facility] Start: 1945 Sex Assigned At Not on file [facility] Gender identity Not on file [facility] Progress note 09-16-2023 Note Date & Type Note Facility 09-16-2023 Note HNO ID: [id number] Author: Dali Randall APRN.SUKHDEV Service: ? Author Type: Nurse Practitioner Type: Progress Notes Filed: 09/16/2023 6:53 PM Note Text: Patient came in with complaints of severe shortness of breath out of nowhere. Patient says he was very avid runner and athletic into his 50s. Patient says he does routine follow-ups with his doctor and does not have any significant health history. Patient says any exertion that he does makes him out of breath even the smallest of tasks. Patient has no sick symptoms at this time. Due to this patient is being referred to the emergency room for full evaluation will take him now. [facility] History of Present illness Narrative 09-16-2023 Dali Randall APRN.SUKHDEV - 09/16/2023 6:43 PM EST Note Date & Type Note Facility 09-16-2023 History of Presen t illness Narrative Patient came in with complaints of severe shortness of breath out of nowhere. Patient says he was very avid runner and athletic into his 50s. Patient says he does routine follow-ups with his doctor and does not have any significant health history. Patient says any exertion that he does makes him out of breath even the smallest of tasks. Patient has no sick symptoms at this time. Due to this patient is being referred to the emergency room for full evaluation will take him now. documented in this encounter [facility] Evaluation note Note Date & Type Note Facility documented in this encounter [facility] Summary Purpose Family History No Family History Records FoundNo Family History Records Found Advance Directives No Advanced Directives Records FoundNo Advanced Directives Records Found Additional Source Comments (unrecognized sect ion and content) No Status Records FoundNo Status Records Found INFORMATION SOURCE (unrecogn ized section and content) DATE CREATED AUTHOR AUTHOR'S ORGANIZ ATION 09/19/2023 [facility] Source Comments (unrecognize d section and content) In the event this informatio n is protected by the Federal Confidentiality of Alcohol and Drug Abuse Patient Records regulations: The Federal rules restrict any use of the information to criminally investigate or prosecute any alcohol or drug abuse patient.[facility] FOR RECORDS PERTAINING TO PATIENTS WHO ARE OR HAVE BEEN ENROLLED IN A CHEMICAL DEPENDENCY/SUBSTANCEABUSE PROGRAM, SOME INFORMATION MAY BE OMITTED. This clinical summary was aggregated from multiple sources. Caution should be exercised in using it in the provision of clinical care. This summary normalizes information from multiple sources, and as a consequence, information in this document may materially change the coding, format and clinical context of patient data. In addition, data may be omitted in some cases. CLINICAL DECISIONS SHOULD BE BASED ON THE PRIMARY CLINICAL RECORDS. [facility] [employer] [facility]. provides no warranty or guarantee of the accuracy or completeness of information in this document.
[2023-12-16 13:43] LABS: Vitamin D,25 Hydroxy 32.8 ng/mL
[2023-12-23 03:07] LABS: B. henselae IgG Negative titer (Neg:<1:320); B. henselae IgM Negative titer (Neg:<1:100); B. quintana IgG Negative titer (Neg:<1:320); B. quintana IgM Negative titer (Neg:<1:100); CMV Acute Antibody IgM < 30.0 AU/mL (0.0-29.9); CMV Antibody IgG < 0.60 U/mL (0.00-0.59); Lyme IgG P18 Ab Absent (.); Lyme IgG P23 Ab Absent (.); Lyme IgG P28 Ab Absent (.); Lyme IgG P30 Ab Absent (.); Lyme IgG P39 Ab Absent (.); Lyme IgG P41 Ab Absent (.); Lyme IgG P45 Ab Absent (.); Lyme IgG P58 Ab Absent (.); Lyme IgG P66 Ab Absent (.); Lyme IgG P93 Ab Absent (.); Lyme IgG WB Interpretation Negative (.); Lyme IgM P23 Ab Absent (.); Lyme IgM P39 Ab Absent (.); Lyme IgM P41 Ab Absent (.); Lyme IgM WB Interpretation Negative (.); Mycoplasma Pneum AB IgG 718 U/mL (0-99); Mycoplasma pneum. AB IgM < 770 U/mL (0-769); VITAMIN B6 16.9 ug/L (3.4-65.2)
== END | disposition home or self-care (01) ==
LOC: BIMLAB 08:39
PROVIDERS: PCP Family Medicine; Referring Provider Nurse Practitioner Family; Visit Provider Nurse Practitioner Family
DX: I48.91 Unspecified atrial fibrillation (principal); I50.22 Chronic systolic (congestive) heart failure; E11.42 Type 2 diabetes mellitus with diabetic polyneuropathy; R06.00 Dyspnea, unspecified; G89.29 Other chronic pain; G31.84 Mild cognitive impairment of uncertain or unknown etiology; H93.12 Tinnitus, left ear; R20.2 Paresthesia of skin; R14.0 Abdominal distension (gaseous); R63.0 Anorexia; R26.2 Difficulty in walking, not elsewhere classified; R11.0 Nausea; E55.9 Vitamin D deficiency, unspecified
CPT/HCPCS: 36415; 82306; 84207; 84425; 86611; 86617; 86644; 86645; 86738

== ENCOUNTER 2023-12-20 08:28 | Emergency (ER) | payer MEDICARE, SELFPAY ==
[2023-12-20 08:30] VITALS: BP 133/110; PULSE 87; RESP 14; TEMP 36.8; O2SAT 99; BMI 25.4
--- NOTE | 2023-12-20 08:46 | CT_ITS ---
STUDY: CT ABDOMEN AND PELVIS WITH CONTRAST REASON FOR EXAM: Male, 78 years old. 2 month history of abdominal bloating and nausea. Hypertension. RADIATION DOSAGE (If Supplied By Facility): CTDIvol = ( 13.85 ) mGy, DLP = ( 814.24 ) mGycm TECHNIQUE: Transaxial images were obtained from the dome of the diaphragm to the symphysis pubis without oral contrast. IV 75mL Isovue-370 was administered. Sagittal and coronal images were reconstructed. Individualized dose optimization techniques were used for this CT. COMPARISON: None. FINDINGS: Mild increased markings at the lung bases suggestive of scarring. Coronary artery calcification. There is decreased attenuation of the liver consistent with steatosis. Normal gallbladder and extrahepatic biliary system. Normal spleen. There is diffuse atrophy of the pancreas. Normal bilateral adrenal glands. Normal right kidney. Normal left kidney. Normal visualized stomach. Normal small intestine. Normal colon. The appendix is visualized and appears normal. There is diffuse atherosclerotic calcification of the abdominal aorta and its major visceral branches, without a demonstrated aneurysm. There is evidence of mural thrombus. 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 Normal inferior vena cava. Normal retroperitoneum. Normal urinary bladder. Bilateral inguinal hernias containing fat worse on the right side . There are diffuse degenerative changes of the visualized lumbar spine. 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 Fatty infiltration of the liver. Bilateral inguinal hernias containing fat more prominent on the right side. Electronically Signed: Loco Parekh MD at 10:57 EST ,
--- NOTE | 2023-12-20 08:47 | EDS_ITS ---
HPI HPI - GI History of Present Illness Chief Complaint: Abd Pain Detail of Chief Complaint: Abdominal pain, nausea and bloating for weeks Informant: patient, spouse/S.O. and family Abdominal Pain/Flank Pain Onset: Weeks Context: Gradual Onset Timing: Intermittent Quality: Dull Location: Diffuse Current Severity: Mild Maximum Severity: Mild Worsened by: Nothing Relieved by: Nothing Nausea/Vomiting/Emesis GI Symptom: Positive for Nausea Severity: Mild Diarrhea/Melena/Hematochezia GI Symptom: Negative for Diarrhea, Melena or Hematochezia Associated Symptoms Associated Symptoms: Negative for Dysuria, Frequency, Hematuria or Urgency Narrative Narrative: 78-year-old male history of A-fib on Eliquis and diabetes. No prior abdominal surgeries. States for weeks if not months he has had intermittent diffuse dull abdominal pain with bloating. Nausea without vomiting. Constipation intermittently. Last bowel movement yesterday. Denies dysuria. No fever. Prior similar symptoms: Yes Recent Illness/Hospitalization: No PFSH PFSH Medical History Arthritis Atrial fibrillation, new onset Back pain Bilateral carotid artery stenosis BPH w urinary obs/LUTS Carotid artery disease CHF (congestive heart failure) Chronic fatigue Chronic insomnia Chronic pain DDD (degenerative disc disease), lumbar Diabetes Dyslipidemia ED (erectile dysfunction) Essential tremor Folliculitis H/o fracture to left knee Herpes History of irregular heartbeat HTN (hypertension) Injury of back Irregular heart beat Non-smoker Opioid use Peripheral arterial occlusive disease Peripheral neuropathy Raynaud disease SOB (shortness of breath) Spinal cord stimulator status Syncope Home Medications aspirin 81 mg tablet,delayed release 81 mg PO DAILY heart 01/14/21 [History Last Taken 09/17/23] lisinopril 20 mg tablet 20 mg PO DAILY HTN 05/14/21 [History Last Taken 02/10/22 04:45 20 mg] metoprolol tartrate 25 mg tablet 25 mg PO BID #60 tabs 09/19/23 [Rx Last Taken Unknown] sennosides 8.6 mg-docusate sodium 50 mg tablet (Stool Softener-Stimulant Laxative) 2 tab PO BID PRN PRN Constipation #0 tabs 09/19/23 [Rx Last Taken Unknown] lovastatin 10 mg tablet 10 mg PO DAILY 09/26/23 [History Last Taken Unknown] acyclovir 400 mg tablet 400 mg PO .QOD 11/09/23 [History Last Taken Unknown] apixaban 5 mg tablet (Eliquis) 5 mg PO BID #60 tabs 11/09/23 [Rx Last Taken Unknown] empagliflozin 10 mg tablet (Jardiance) 10 mg PO DAILY #30 tabs 11/09/23 [Rx Last Taken Unknown] furosemide 20 mg tablet 20 mg PO DAILY #90 tabs 11/09/23 [Rx Last Taken Unknown] gabapentin 400 mg capsule 800 mg PO DAILY 11/09/23 [History Last Taken Unknown] glipizide 5 mg tablet 5 mg PO BID 11/09/23 [History Last Taken Unknown] potassium chloride 10 mEq tablet,extended release 10 meq PO DAILY #90 tabs 11/09/23 [Rx Last Taken Unknown] ondansetron 4 mg disintegrating tablet 4 mg PO BID PRN 12/14/23 [History Last Taken Unknown] oxycodone-acetaminophen 10 mg-325 mg tablet 1 tab PO Q4-6H PRN 12/14/23 [History Last Taken Unknown] trazodone 50 mg tablet 50 mg PO QHS PRN 12/14/23 [History Last Taken Unknown] promethazine 25 mg tablet 25 mg PO Q4H PRN nausea and vomiting #10 tabs 12/20/23 [Rx Last Taken Unknown] Allergy/AdvReac Type Severity Reaction Status Date / Time tramadol [From Ultram] Allergy Severe near Verified 12/20/23 08:30 duloxetine AdvReac lightheaded Verified 12/20/23 08:30 ness metformin AdvReac stomach Verified 12/20/23 08:30 issues pregabalin [From Lyrica] AdvReac hallucinations, Verified 12/20/23 08:30 dizzy Family History Mother Hypertension CVA (cerebral vascular accident) Brother Aneurysm CVA (cerebral vascular accident) Melanoma Father Alcoholism Surgical History History of back surgery History of colonoscopy History of endarterectomy History of knee surgery History of tonsillectomy Social History household members: spouse housing: house Smoking Status: Never smoker alcohol intake: current alcohol intake frequency: holidays/special occasions only substance use type: does not use caffeine: No what type of physical activity do you participate in: none ROS ROS ED ROS Narrative Abdominal pain. Nausea. Bloating. Review of Systems ROS Unobtainable: Denies due to encephalopathy Constitutional Constitutional ED: Denies chills or fever(s) ENT ENT ED: Denies ear pain Cardiovascular Cardiovascular: Denies chest pain Respiratory/Chest Respiratory/Chest: Denies cough or dyspnea Gastrointestinal Gastrointestinal: Reports abdominal pain, constipation and nausea; Denies diarrhea, melena or vomiting Genitourinary Genitourinary ED: Denies dysuria or hematuria Musculoskeletal Musculoskeletal: Denies arthralgias Integumentary Denies abscess Neurologic Neurologic: Denies headache(s) Psychiatric Psychiatric: Denies anxiety Endocrine Endocrinology: Denies polydipsia Hematologic/Lymphatic Hematologic/Lymphatic: Denies lymphadenopathy Allergic/Immunologic Allergic/Immunologic ED: Denies mouth swelling, tongue swelling or urticaria EXAM Physical Exam Narrative Exam Narrative: Well-appearing 78-year-old male. Vital signs stable and afebrile. H EENT exam unremarkable. Moist mucous membranes. Lungs clear to auscultation bilaterally. Heart rate about 85. No murmur. Chest wall nontender. Abdomen soft, nondistended normal bowel sounds no peritoneal signs. Tender on the right side of the abdomen. No hernia or mass. No obvious obstruction. No pulsatile mass. Left side of his abdomen is unremarkable. Moving all 4 extremities. Nontender no edema. Normal strength. Back nontender. Neurologically is awake and alert with no focal motor deficits. and daughter present in room. Const Vital Signs: 12/20/23 08:30 12/20/23 10:49 12/20/23 11:58 Temperature 98.2 F Temperature Source Temporal Pulse Rate 87 64 64 Respiratory Rate 14 16 Blood Pressure 133/110 H 147/78 H 131/94 H Blood Pressure Mean 117 101 106 Pulse Ox 99 98 Oxygen Delivery Method Room Air Room Air Positive well nourished and well developed; Negative for cachectic, contractures or unkempt General Appearance ED: well developed and NAD; Negative for unkempt, cachectic, contractures or pallor Nutritional Appearance: Negative for cachectic HEENT Reports moist mucous membranes normocephalic and atraumatic; Negative for trauma or tenderness Eyes PERRL and EOMs intact bilaterally General Eye ED: Negative for pale conjunctiva or scleral icterus Neck no lymphadenopathy, supple and no JVD General: Negative for tenderness Carotids: Negative for other Lymph Lymphatic: Negative for other Resp normal respiratory effort and clear to auscultation bilaterally Effort and Inspection: Negative for respiratory distress Auscultation: Negative for rales, rhonchi or wheezes Cardio regular rate, regular rhythm, S1 normal heart sound, S2 normal heart sound and no murmurs GI non-distended and no masses; Negative for non-tender Auscultation: normoactive bowel sounds Palpation: soft and tender; Negative for guarding, rigid or rebound tenderness present Back/Spine no CVA tenderness General Back: Negative for CVA tenderness Cervical Spine: Negative for cervical spine tenderness Thoracic Spine / Upper Back: Negative for thoracic spinal tenderness Lumbar Spine / Lower Back: Negative for lumbar spinal tenderness Coccyx: Negative for other Extremity full ROM General Extremety ED: Negative for edema or tenderness General Extremity: Negative for edema Neuro CN's II-XII intact bilaterally and moves all extremities Sensorium / Orientation: alert, oriented to person, oriented to place and oriented to time; Negative for orientation impaired, confused, lethargic or stuporous Motor Exam: strength 5/5 throughout Psych mental status grossly normal and thought process normal Appearance: Negative for unkempt Attitude: No agitated Mood & Affect: Negative for depressed, anxious or tearful Skin no wounds General Skin Exam: Negative for jaundice or pallor Lesions: no lesions Rashes: no rashes Trauma: Negative for abrasion Nails: Negative for discolored MDM MDM MDM Narrative Medical decision making narrative: 78-year-old male with abdominal pain for weeks to months. Treated with IV Zofran for nausea and morphine for pain. CAT scan labs pending. Differential would include gallbladder disease, obstruction versus other etiologies. Repeat exam no significant change at 12:05 PM. I went over all the test results with patient and family. I also spoke to vascular surgeon on-call Dr. Kaden Olivas. He evaluated the patient's CAT scan. He is comfortable seeing the patient outpatient follow-up and may get a CTA of the abdomen at that time. Currently there is no acute signs of mesenteric ischemia. Patient is already on a blood thinner Eliquis. Repeat exam shows no significant change in his exam. His pain is improved with the morphine. He does have small inguinal hernias but they are not incarcerated or strangulated. Outpatient follow-up with general barnhart rgpranay to see if that something they would repair or just observe. Will be written for Phenergan for home for nausea because he already has Zofran and is not working as well as he had hoped. I discussed all this with the family. History & Record Review Discussion w/independent historian: Patient and Family Additional record(s) reviewed:: Prior inpatient record, Prior outpatient record, Prior ED visit and Prior labs Lab Data Attestation: I reviewed the patient's lab results. Lab results narrative: CBC shows elevated white count of 14.9. H&H of 14 and 46. Platelets 247. Chemistries show a gap of 7. BUN and creatinine are 39 and 1.91. Glucose 230. Liver enzymes are unremarkable. Lipase is normal at 18. Labs are consistent with his baseline except his creatinine has been increasing since August. Urinalysis is normal. CT of the abdomen with IV contrast shows thrombus, bilateral inguinal hernias and chronic calcifications of the aorta. Labs: Laboratory Results - last 24 hr 12/20/23 12/20/23 09:00 10:40 WBC 14.9 H RBC 4.67 Hgb 14.8 Hct 46.3 MCV 99.1 H MCH 31.7 MCHC 32.0 RDW Std Deviation 49.6 H RDW Coeff of Herbert 13.8 Plt Count 247 MPV 10.9 Immature Gran % (Auto) 3.000 H Neut % (Auto) 71.1 H Lymph % (Auto) 14.5 L [place] % (Auto) 9.9 Eos % (Auto) 0.5 Baso % (Auto) 1.0 Absolute Neuts (auto) 10.6 H Absolute Lymphs (auto) 2.15 Nucleated RBC % 0 Sodium 138 Potassium 4.6 Chloride 102 Carbon Dioxide 29.0 Anion Gap 7 BUN 39 H Creatinine 1.91 H Estim Creat Clear Calc 35.55 Est GFR (MDRD) Af Amer 44 L Est GFR (MDRD) Non-Af 36 L BUN/Creatinine Ratio 20.4 H Glucose 230 H Calcium 10.0 Total Bilirubin 0.50 AST 28 ALT 49 Alkaline Phosphatase 67 Total Protein 8.4 H Albumin 3.9 Globulin 4.5 H Albumin/Globulin Ratio 0.9 Lipase 18 Urine Color Yellow Urine Clarity Clear Urine pH 8.0 Ur Specific [place] 1.015 Urine Protein 15 H Urine Glucose (UA) 1000 H Urine Ketones Negative Urine Occult Blood 10 H Urine Nitrite Negative Urine Bilirubin Negative Urine Urobilinogen Normal Ur Leukocyte Esterase Negative Urine RBC 0 SEEN Urine WBC 0 SEEN Ur Squamous Epith Cells 0 SEEN Urine Bacteria 0 SEEN Urine Mucus 0 SEEN Radiography Diagnostic Testing: Clinical Impression(s) from Imaging Studies Abdomen/Pelvis CT 12/20/23 08:46 IMPRESSION: Extensive atherosclerotic calcification of the abdominal aorta and its major branches with the thrombus in the right common iliac artery. Fatty infiltration of the liver. Bilateral inguinal hernias containing fat more prominent on the right side. Electronically Signed: Loco Parekh MD at 10:57 EST , Discharge Plan Triage Chief Complaint: Abd Pain ED Provider: Daniel Walters Dx/Rx/DC Orders Clinical Impression: Aortic calcification, Chronic anticoagulation, History of chronic atrial fibrillation, History of diabetes mellitus, Abdominal pain, Bilateral inguinal hernia Instructions: Abdominal Pain, ED Hernia (Adult) Prescriptions: New promethazine 25 mg tablet 25 mg PO Q4H PRN (Reason: nausea and vomiting) Qty: 10 0RF No Action lovastatin 10 mg tablet 10 mg PO DAILY glipizide 5 mg tablet 5 mg PO BID gabapentin 400 mg capsule 800 mg PO DAILY acyclovir 400 mg tablet 400 mg PO .QOD Eliquis 5 mg tablet 5 mg PO BID Qty: 60 11RF furosemide 20 mg tablet 20 mg PO DAILY Qty: 90 3RF potassium chloride 10 mEq tablet extended release 10 meq PO DAILY Qty: 90 3RF Jardiance 10 mg tablet 10 mg PO DAILY Qty: 30 11RF ondansetron 4 mg tablet,disintegrating 4 mg PO BID PRN oxycodone-acetaminophen 10-325 mg tablet 1 tab PO Q4-6H PRN trazodone 50 mg tablet 50 mg PO QHS PRN aspirin 81 MG tablet,delayed release (DR/EC) 81 mg PO DAILY lisinopril 20 mg Tablet 20 mg PO DAILY Hold Instructions: Hold for 5 days and then restart low-dose 10 mg daily with holding parameters, hold for SBP less than 130 mmHg sennosides-docusate sodium [Stool Softener-Stimulant Laxat] 8.6-50 mg Tablet 2 tab PO BID PRN PRN (Reason: Constipation) Qty: 0 0RF metoprolol tartrate 25 mg Tablet 25 mg PO BID Qty: 60 2RF Rx Instructions: Hold for heart less than 50 or systolic blood pressure less than 100 mmHg. Primary Care Provider: Delta Blair Referrals: Angel Anne MD [Med Staff - Active Staff] - 1-2 Weeks Kaden Santamaria MD [Med Staff - Active Staff] - As soon as possible Delta Blair, [Primary Care Provider] - 3-5 Days suture removal Activity Restrictions/Additional Instructions: Tylenol for pain. Continue your current medications including your blood thinner Eliquis. Call and follow-up with Dr. Kaden Santamaria a vascular surgeon who may do further testing to check the blood flow to your intestines. This would be a different type of CAT scan. Call and follow-up with the general surgeon on-call Dr. Haseeb Juárez for your inguinal hernias. Plenty of fluids and stool softener to help with any constipation. Return if increasing pain, fever or intractable vomiting. Otherwise outpatient follow-up. Disposition Disposition: Home, Self Care
[2023-12-20] MEDS: Ondansetron 4 MG/2 ML Vial IV (09:08)
[2023-12-20] MEDS: Morphine 4 MG/ML Syringe IV ×2 (09:08→12:06)
[2023-12-20 09:14] LABS: Absolute Lymphocyte Count 2.15 X10^3/uL (0.83-4.51); Absolute Neutrophil Count 10.6 X10^3/uL (2.0-7.7); Basophil# 0.15 X10^3/uL; Eosinophil# 0.08 X10^3/uL; Eosinophils% 0.5 % (0-5); Hematocrit 46.3 % (40-54); Hemoglobin 14.8 g/dL (13.0-16.5); Lymphocyte # 2.15 X10^3/ul (0.83-4.51); Lymphocyte % 14.5 % (19-41); Mean Corpuscular Hgb 31.7 pg (27.0-32.0); Mean Corpuscular Volume 99.1 fL (80-94); Mean Platelet Vol. 10.9 fl (6.2-12.0); Monocyte# 1.47 X10^3/uL; Monocyte% 9.9 % (0-10); NRBC Flagged by Analyzer 0 % (0-5); Neutrophil # 10.57 X10^3/uL (2.7-7.7); Neutrophil % 71.1 % (47-70); Platelet Count 247 K/mm3 (150-450); RBC Distribution Width CV 13.8 % (11.6-14.6); RBC Distribution Width SD 49.6 fl (35.1-43.9); Red Blood Count 4.67 M/mm3 (4.6-6.2); White Blood Count 14.9 K/mm3 (4.4-11.0)
[2023-12-20 09:43] LABS: ALB/GLOB Ratio 0.9 RATIO (0.9-2.4); AST(SGOT) 28 U/L (15-37); Alanine Aminotransfer ALT/SGPT 49 U/L (16-61); Albumin, Serum 3.9 g/dL (3.2-5.0); Alkaline Phosphatase 67 U/L (45-117); Anion Gap 7 (5-15); BUN 39 mg/dL (7-18); BUN/Creat Ratio 20.4 RATIO (10-20); Chloride 102 mmol/L (98-107); Creatinine, Serum 1.91 mg/dL (0.70-1.30); EST Glomerular Filtration Rate 36 mL/min (>60); Est Glom Filt Rate - Afr Amer 44 mL/min (>60); Estimated Creatinine Clearance 35.55 ml/min; Globulin 4.5 g/dL (2.2-4.2); Glucose 230 mg/dL (74-106); Lipase 18 U/L (13-75); Potassium 4.6 mmol/L (3.5-5.1); Protein, Total 8.4 g/dL (6.4-8.2); Sodium Level 138 mmol/L (136-145)
[2023-12-20 10:49] VITALS: BP 147/78; PULSE 64
[2023-12-20 10:52] LABS: Bacteria 0 SEEN /hpf (None Seen); Mucous, Urine 0 SEEN /hpf (<or=2+); Red Blood Cells-Urine 0 SEEN /hpf (0-5); Squamous Epithelial Cells - UA 0 SEEN /hpf (0-5); White Blood Cells 0 SEEN /hpf (0-5)
[2023-12-20 10:57] LABS: Color, Urine Yellow (Yellow); Glucose, Dipstick 1000 mg/dl (Normal); Ketone-Dipstick Negative (Negative); Leukocyte Esterase-Dipstick Negative /ul (Negative); Nitrite-Dipstick Negative (Negative); Occult Blood-Urine 10 /ul (Negative); Protein-Dipstick 15 mg/dl (Negative); Specific Gravity, Urine 1.015 (1.002-1.030); Urine Bilirubin Dipstick Negative (Negative); Urine Clarity Clear (Clear); Urine Urobilinogen Normal (Normal)
[2023-12-20 11:58] VITALS: BP 131/94; PULSE 64; RESP 16; O2SAT 98
[2023-12-20 12:38] VITALS: BP 131/94; PULSE 64; RESP 16; TEMP 36.8; O2SAT 98
== END 2023-12-20 12:46 | disposition home or self-care (01) ==
PROVIDERS: Emergency Provider Emergency Medicine; PCP Family Medicine; Visit Provider Emergency Medicine
DX: R10.84 Generalized abdominal pain (principal); E11.42 Type 2 diabetes mellitus with diabetic polyneuropathy; I70.0 Atherosclerosis of aorta; I48.91 Unspecified atrial fibrillation; R11.0 Nausea; K40.20 Bilateral inguinal hernia, without obstruction or gangrene, not specified as recurrent; E78.5 Hyperlipidemia, unspecified; I10 Essential (primary) hypertension; Z79.01 Long term (current) use of anticoagulants; Z79.82 Long term (current) use of aspirin; Z79.84 Long term (current) use of oral hypoglycemic drugs; Z79.899 Other long term (current) drug therapy
CPT/HCPCS: 74177; 80053; 81001; 83690; 85025; 96374; 96375; 96376; 99283; Q9967; A4216; J2405

== ENCOUNTER → 2023-12-23 | Outpatient (CLI) | payer MEDICARE, SELFPAY ==
--- NOTE | 2023-12-23 09:26 | US_ITS ---
STUDY: SUPERFICIAL ULTRASOUND - CERVICAL REGION. REASON FOR EXAM: Male, 78 years old. NECK MASS TECHNIQUE: A superficial ultrasound was performed with real-time and static daugherty-scale imaging. COMPARISON: None. FINDINGS: The palpable lump corresponds to a 5 mm x 7 mm x 5 mm benign-appearing lymph node. US/Head/Neck Soft Tissue IMPRESSION: The palpable lump corresponds to a 5 mm x 7 mm x 5 mm benign-appearing lymph node. Electronically Signed: Loco Parekh MD at 15:09 EST ,
--- NOTE | 2023-12-23 09:26 | US_ITS ---
STUDY: ABDOMINAL ULTRASOUND REASON FOR EXAM: Male, 78 years old. Hepatomegaly with splenomegaly TECHNIQUE: Transabdominal ultrasound was performed with real-time and static daugherty scale imaging. TECHNICAL QUALITY: Adequate. COMPARISON: Comparison is made with prior sonogram of the upper abdomen dated December 20, 2023. FINDINGS: Liver: The liver measures 14.2 cm. There is increased echogenicity consistent with fatty infiltration. The bile ducts are within normal limits. There is hepatic color flow. The direction of portal flow is hepatopetal. There is no demonstrated mass lesion. Gallbladder: Normal distended gallbladder. The gallbladder wall measures 1.0 mm. There is a negative sonographic Espinal''s sign. There is no pericholecystic fluid. There are no gallstones. Common Bile Duct (C.B.D.): The common bile duct measures 3.0 mm. Pancreas: Normal size of the head, body and tail of the pancreas. There is normal echogenicity of the pancreas. There is no demonstrated pancreatic mass or cyst. Spleen: Normal size of the spleen. The spleen measures 9.3 cm x 2.4 cm x 2.9 cm. Right Kidney: Normal size of the right kidney. The right kidney measures 11.1 cm x 5.8 cm x 5.4 cm. Normal renal cortex. The right cortex measures 1.4 cm. There is no demonstrated renal mass or cyst. There is no right hydronephrosis. Left Kidney: Normal size of the left kidney. The left kidney measures 10.7 cm x 5.9 cm x 5.9 cm. Normal renal cortex. The left cortex measures 1.5 cm. There is no demonstrated renal mass or cyst. There is no left hydronephrosis. Aorta: Unremarkable. I.V.C.: The IVC is patent. There is no ascites. US/Abdomen Complete IMPRESSION: Fatty infiltration of the liver. Electronically Signed: Loco Parekh MD at 15:11 EST ,
== END | disposition home or self-care (01) ==
PROVIDERS: PCP Family Medicine; Referring Provider Family Medicine; Visit Provider Family Medicine
DX: R22.1 Localized swelling, mass and lump, neck (principal)
CPT/HCPCS: 76536; 76700

== ENCOUNTER → 2024-01-02 | Outpatient (CLI) | payer MEDICARE, SELFPAY ==
--- OUTSIDE RECORDS SUMMARY | 2024-01-02 06:44 | XMS RPT_ITS | CCD ---
Author Name Unknown Address [address] [place] [address] Organization [facility] Care Team Providers Care Field [employer] Name Role Phone Shane Rojas Unavailable Unavailable Unavailable Primary Care Provider Unavailabl e Allergies Allergy Classification Reported Allergen(s) Allergy Type Date of Onset Reaction(s) Facility (2 sources) traMADol; Translations: [TRAMADOL HCL] Drug Allergy 02-14-2006 [facility] Medications Completed/Discontinued Medications Medication Drug Class(es) Dates [...] Provider Facility Start: 09-16-2023 End: 09-16-2023 ambulatory Facility:[facility] Start: 09-16-2023 End: 09-16-2023 Patient encounter procedure Dali Randall APRN.CNP Work Phone: [facility] Plan of Treatment Date Care Activity Detail Author Start: 07-01-2023 Covid-19 Vaccine ( season) Covid-19 Vaccine () [facility] Start: 07-01-2023 Influenza vaccination Influenza Vacc ine (#1) [facility] Start: 10-31-2022 Advance Directive Discussion Advance Directive Discussion [facility] Start: 10-31-2022 Depression Assessment Depression Ass essment [facility] Start: 2011 Pneumococcal Vaccine : 65+ (1 - PCV) Pneumococcal Vaccine: 65+ (1 - PCV) [facility] Start: 2006 RSV Vaccine (1 - 1-d ose 60+ series) RSV Vaccine (1 - 1-dose 60+ series) [facility] Start: 1996 Shingrix Vaccine (1 of 2) Shingrix V accine (1 of 2) [facility] Start: 1991 Diabetes Screening Diabetes Screenin g [facility] Start: 1965 Urine microalbumin profile DTaP,Tdap,Td Vaccine (1 - Tdap) [facility] Start: 1964 Hepatitis C Screening Hepatitis C Sc azning [facility] Payers Date Payer Category Payer Medicare [id number] 2011 Medicare MEDICARE MEDICAR E B [id number] 2011-[place] [address] Medicare [id number] Social History Date Type Detail Facility Start: 12-02-2011 Tobacco smoking stat us NHIS Ex-smoker [facility] Work Phone: History of tobacco use Current smoker [facility] Work Phone: Start: 12-02-2011 Tobacco use and exposure Smokeless tobacco non-user [facility] Work Phone: Start: 12-02-2011 Alcohol intake Current drinke r of alcohol (finding) [facility] Start: 1945 Sex Assigned At Not on file [facility] Gender identity Not on file [facility] inic Progress note 09-16-2023 Note Date & Type Note Facility 09-16-2023 Note HNO ID: [id number] Author: Dali Randall APRN.SUKHDEV Service: ? Author [...] take him now. documented in this encounter [facility] Evaluation note Note Date & Type Note Facility documented in this encounter [facility] Summary Purpose Family History No Family History [...] or prosecute any alcohol or drug abuse patient.[facility] FOR RECORDS PERTAINING TO PATIENTS WHO ARE [...] BE BASED ON THE PRIMARY CLINICAL RECORDS. [facility] [employer] [facility] provides no warranty or guarantee of the accuracy or completeness of information in this document.
--- NOTE | 2024-01-02 10:24 | STRESSREP ---
Stress Test Report Date: 01/02/2024 Procedure: Pharmacologic stress nuclear imaging study Indications: Dyspnea on exertion Consent: Per the patient Procedure: The patient underwent pharmacologic (Regadenoson 0.4mg ) evaluation with a peak heart rate of 82 beats per minute (57%predicted maximal heart rate) and a peak blood pressure of 116/70 mmHg. The baseline ECG demonstrated sinus rhythm. The peak pharmacologic ECG demonstrated no ischemic changes. There were no cardiac dysrhythmias pretest, during pharmacologic infusion, or recovery. There was no complaint of chest discomfort during pharmacologic infusion or recovery. The patient was injected with 12.0 millicuries of technetium 99m Cardiolite and subsequently rest SPECT Cardiolite nuclear imaging was obtained in the horizontal long, vertical long, and short axis views. The patient underwent pharmacologic (Regadenoson) evaluation. The patient was injected with 34.9 millicuries of technetium 99m Cardiolite and subsequently stress SPECT Cardiolite nuclear imaging was obtained in the horizontal long, vertical long, and short axis views. A gated Cardiolite study at peak stress was obtained. The examination was stopped secondary to completion of protocol. Rest and stress SPECT Cardiolite nuclear imaging status post realignment, normalization, and attenuation correction demonstrate no fixed or reversible perfusion defects. There is end systolic thickening and brightening. The gated Cardiolite study demonstrates myocardial thickening and inward wall motion. The reported LVEF is 80%. Impression: 1. Pharmacologic (Regadenoson) evaluation 2. Peak pharmacologic ECG with no ischemic changes. 3. There were no cardiac dysrhythmias pretest, during pharmacologic infusion, or recovery. 5. Rest and stress SPECT Cardiolite nuclear imaging demonstrate relative uniform tracer uptake and myocardial perfusion appearing within normal limits. 6. The gated Cardiolite study reports an LVEF of 80%. This note was generated with [employer] software. It may contain incorrect words, spelling, and punctuation that were not noted in checking the note before signing.
== END | disposition home or self-care (01) ==
LOC: CVS 06:42
PROVIDERS: PCP Family Medicine; Referring Provider Internal Medicine Cardiovascular Disease; Visit Provider Internal Medicine Cardiovascular Disease
DX: I48.0 Paroxysmal atrial fibrillation (principal); I50.30 Unspecified diastolic (congestive) heart failure; I77.9 Disorder of arteries and arterioles, unspecified; E78.5 Hyperlipidemia, unspecified; R06.09 Other forms of dyspnea
CPT/HCPCS: 78452; 93017; A9500; A4216; J2785

== ENCOUNTER 2024-01-11 19:52 | Inpatient (IN) | payer MEDICARE, SELFPAY ==
[2024-01-11] VITALS (7 sets, daily range): BP systolic 77–102; BP diastolic 52–83; PULSE 77–86; RESP 13–22; TEMP 36.5–36.9; O2SAT 92–97; BMI 26.5
--- NOTE | 2024-01-11 20:28 | CT_ITS ---
EXAM: CT HEAD WITHOUT INTRAVENOUS CONTRAST CLINICAL INDICATION: trauma pain. TECHNIQUE: Multiple axial images were obtained of the head without intravenous contrast. This CT exam was performed using one or more of the following dose reduction techniques: automated exposure control, adjustment of the mA and/or kV according to patient size, and/or use of iterative reconstruction technique. COMPARISON: CT head, 10/26/2005 FINDINGS: BRAIN AND EXTRA-AXIAL SPACES: There is non-specific periventricular hypoattenuation which is most commonly related to chronic microvascular ischemic disease in a patient of this age. There is no mass, mass-effect, or shift of the midline structures. No evidence of acute infarct or acute intracranial hemorrhage. There is no evidence of pathologic extra-axial fluid. There is no hydrocephalus. Patent basal cisterns. BONES/JOINTS: No significant abnormality. No discrete lytic or blastic abnormalities. VASCULATURE: Arteriosclerosis. SINUSES: No significant findings. MASTOID AIR CELLS: No significant effusion. ORBITS: No acute findings. CT/Brain/Head without Contrast IMPRESSION: Chronic microvascular ischemic changes. No CT evidence of acute intracranial pathology. Electronically Signed: Wisam Coffman DO at 22:08 EDT ,
--- NOTE | 2024-01-11 20:29 | EKG12_ITS ---
Test Reason : DIZZYNESS Blood Pressure : / mmHG Vent. Rate : 079 BPM Atrial Rate : 079 BPM P-R Int : 184 ms QRS Dur : 092 ms QT Int : 394 ms P-R-T Axes : 005 -03 027 degrees QTc Int : 451 ms Normal sinus rhythm Normal ECG Confirmed by Josef Goldstein ([id number]), electronic news gathering editor EDOUARD ALONZO ([id number]) on 01/13/2024 2:06:53 PM Referred By: NOEMY Confirmed By:Josef Goldstein
--- NOTE | 2024-01-11 20:53 | RAD_ITS ---
EXAM: XR CHEST, 1 VIEW CLINICAL INDICATION: weakness, sob TECHNIQUE: Frontal view of the chest. COMPARISON: 09/17/2023 FINDINGS: LUNGS AND PLEURAL SPACES: Left basilar pulmonary opacity may be atelectasis or pneumonia. No pneumothorax. No effusion. HEART: No significant abnormality. Cardiac silhouette not enlarged. MEDIASTINUM: Central airways and mediastinal contour are unremarkable. BONES/JOINTS: No significant abnormality. No acute fracture. SOFT TISSUES: No significant abnormality. RAD/Chest 1 View (Portable) IMPRESSION: Left basilar pulmonary opacity may be atelectasis or pneumonia. Electronically Signed: Wisam Coffman DO at 21:18 EDT ,
[2024-01-11 21:23] LABS: Absolute Lymphocyte Count 2.16 X10^3/uL (0.83-4.51); Absolute Neutrophil Count 11.5 X10^3/uL (2.0-7.7); Basophil% 0.6 % (0-1); Eosinophil# 0.23 X10^3/uL; Eosinophils% 1.5 % (0-5); Hematocrit 36.9 % (40-54); Hemoglobin 11.6 g/dL (13.0-16.5); Lymphocyte # 2.16 X10^3/ul (0.83-4.51); Lymphocyte % 13.8 % (19-41); Mean Corp Hgb Conc 31.4 g/dL (32-36); Mean Corpuscular Hgb 30.9 pg (27.0-32.0); Mean Corpuscular Volume 98.4 fL (80-94); Mean Platelet Vol. 10.7 fl (6.2-12.0); Monocyte# 1.51 X10^3/uL; Monocyte% 9.6 % (0-10); NRBC Flagged by Analyzer 0 % (0-5); Neutrophil # 11.46 X10^3/uL (2.7-7.7); Neutrophil % 73.1 % (47-70); POSITIVE DIFFERENTIAL YES; Platelet Count 241 K/mm3 (150-450); RBC Distribution Width CV 14.1 % (11.6-14.6); RBC Distribution Width SD 50.4 fl (35.1-43.9); Red Blood Count 3.75 M/mm3 (4.6-6.2); White Blood Count 15.7 K/mm3 (4.4-11.0)
[2024-01-11 21:25] LABS: Differential Indicated SCAN CRITERIA MET
[2024-01-11] MEDS: Ondansetron 4 MG/2 ML Vial IV (21:33)
[2024-01-11 21:44] LABS: ALB/GLOB Ratio 0.8 RATIO (0.9-2.4); AST(SGOT) 34 U/L (15-37); Alanine Aminotransfer ALT/SGPT 29 U/L (16-61); Albumin, Serum 3.2 g/dL (3.2-5.0); Alkaline Phosphatase 49 U/L (45-117); Anion Gap 12 (5-15); BUN 84 mg/dL (7-18); BUN/Creat Ratio 12.2 RATIO (10-20); Calcium,Total 8.7 mg/dL (8.5-10.1); Chloride 95 mmol/L (98-107); Creatinine, Serum 6.91 mg/dL (0.70-1.30); EST Glomerular Filtration Rate 8 mL/min (>60); Est Glom Filt Rate - Afr Amer 10 mL/min (>60); Estimated Creatinine Clearance 9.83 ml/min; Globulin 3.8 g/dL (2.2-4.2); Glucose 77 mg/dL (74-106); Lipase 18 U/L (13-75); Potassium 4.4 mmol/L (3.5-5.1); Sodium Level 134 mmol/L (136-145); Troponin-I HS 28 pg/mL (3.0-78.0)
[2024-01-11 21:51] LABS: BNP,B-Type NATRIURETIC PEPTIDE 46.9 pg/mL (0-100)
[2024-01-11 21:56] LABS: Lactic Acid 1.5 mmol/L (0.4-1.9)
--- NOTE | 2024-01-11 21:57 | HP.PCM.HOS_ITS ---
[facility] - General General Date of Admission: 01/11/24 Date of Service: 01/11/24 Chief Complaint: Dizziness and Confusion. HPI Narrative RUBEN ROSA, is a 78 M with a past medical history of essential hypertension, hyperlipidemia, overweight; with BMI of 26.6 this admission, diabetes mellitus type 2; of unknown control, history of paroxysmal atrial fibrillation; on apixaban, history of chronic diastolic CHF; with preserved LVEF, peripheral ar terial disease, erectile dysfunction, history of bilateral carotid artery stenosis; status post endarterectomy, history of syncope; previously ascribed to medications, Raynaud's disease, peripheral neuropathy, history of BPH, history of herpetic infection; on chronic acyclovir and degenerative disc disease of the lumbar spine; status post back surgery with osteoarthritis and chronic pain who presents to [facility] ER complaining of dizziness and confusion. Mr. Rosa is not a fully reliable historian at this time so information was gathered from chart, medical staff, computer and his family members who are at the bedside. According to the records his symptoms began approximately 1 week prior to admission with patient becoming progressively more weak and confused with frequent falls. They have noted that his blood pressure has been low and one of his physicians stopped his lisinopril approximately a few days ago but unfortunately his symptoms have persisted with patient noted to have new tremors and visual hallucinations when his daughter went to check on him just prior to admission and when she noted his fingers were blue she activated EMS. She also reported he is currently being evaluated for vascular surgery as an outpatient for aortic calcification and has vascular studies pending and he has a pending referral to oncology for an elevated white blood cell count. The patient admits to nausea but denies vomiting, abdominal pain, fevers, cough or shortness of breath. In the ER he was noted to have laboratory evidence of severe acute renal failure with a serum creatinine of 6.91 mg/dL and a BUN of 84 mg/dL present on admission (in the setting of known BPH) likely due to an adverse drug reaction to the combination of Lasix and lisinopril resulting in metabolic encephalopathy with confusion and generalized weakness with frequent falls and he was then admitted to the PCU for ongoing care for stay that is expected to be greater than 48 hours. [facility] Medical History Arthritis Atrial fibrillation, new onset Back pain Bilateral carotid artery stenosis BPH w urinary obs/LUTS Carotid artery disease CHF (congestive heart failure) Chronic fatigue Chronic insomnia Chronic pain DDD (degenerative disc disease), lumbar Diabetes Dyslipidemia ED (erectile dysfunction) Essential tremor Folliculitis H/o fracture to left knee Herpes History of irregular heartbeat HTN (hypertension) Injury of back Irregular heart beat Non-smoker Opioid use Peripheral arterial occlusive disease Peripheral neuropathy Raynaud disease SOB (shortness of breath) Spinal cord stimulator status Syncope Home Medications metoprolol tartrate 25 mg tablet 25 mg PO BID blood pressure #60 tabs 09/19/23 [Rx Last Taken Unknown] sennosides 8.6 mg-docusate sodium 50 mg tablet (Stool Softener-Stimulant Laxative) 2 tab PO BID PRN PRN Constipation #0 tabs 09/19/23 [Rx Last Taken Unknown] lovastatin 10 mg tablet 10 mg PO DAILY cholesterol 09/26/23 [History Last Taken Unknown] acyclovir 400 mg tablet 400 mg PO .QOD antiviral 11/09/23 [History Last Taken Unknown] apixaban 5 mg tablet (Eliquis) 5 mg PO BID a fib #60 tabs 11/09/23 [Rx Last Taken Unknown] empagliflozin 10 mg tablet (Jardiance) 10 mg PO DAILY blood sugar #30 tabs 0 11/09/23 [Rx Last Taken Unknown] furosemide 20 mg tablet 20 mg PO DAILY water pill #90 tabs 11/09/23 [Rx Last Taken Unknown] glipizide 5 mg tablet 5 mg PO DAILY blood sugar 11/09/23 [History Last Taken Unknown] potassium chloride 10 mEq tablet,extended release 10 meq PO DAILY replacement #90 tabs 11/09/23 [Rx Last Taken Unknown] ondansetron 4 mg disintegrating tablet 4 mg PO BID PRN nausea and vomiting 12/14/23 [History Last Taken Unknown] oxycodone-acetaminophen 10 mg-325 mg tablet 1 tab PO Q4-6H PRN pain 12/14/23 [History Last Taken Unknown] gabapentin 400 mg capsule 400 mg PO .every 6 hours PRN neuro pain 12/28/23 [History Last Taken Unknown] Allergy/AdvReac Type Severity Reaction Status Date / Time tramadol [From [facility]] Allergy Severe near Verified 01/03/24 09:24 duloxetine AdvReac lightheaded Verified 01/03/24 09:24 ness pregabalin [From Lyrica] AdvReac hallucinations, Verified 01/03/24 09:24 dizzy Family History Mother Hypertension CVA (cerebral vascular accident) Brother Aneurysm CVA (cerebral vascular accident) Melanoma Father Alcoholism Surgical History History of back surgery History of colonoscopy History of endarterectomy History of knee surgery History of tonsillectomy Social History household members: spouse housing: house Smoking Status: Never smoker alcohol intake: current alcohol intake frequency: holidays/special occasions only substance use type: does not use caffeine: No what type of physical activity do you participate in: none Vital Signs Vital Signs Vital Signs: 01/11/24 19:53 01/11/24 19:59 Temperature 98.5 F 98.5 F Temperature Source Oral Oral Pulse Rate 84 86 Respiratory Rate 22 H 16 Blood Pressure 87/53 L 86/73 L Blood Pressure Mean 64 77 Pulse Ox 97 97 Oxygen Delivery Method Room Air Room Air Weight Weight: 195 lb 12.328 oz Body Mass Index (BMI) 26.5 Results Lab / Micro Data 01/11/24 21:05 01/11/24 21:05 Labs: Laboratory Results - last 24 hr 01/11/24 21:05: WBC 15.7 H, RBC 3.75 L, Hgb 11.6 L, Hct 36.9 L, MCV 98.4 H, MCH 30.9, MCHC 31.4 L, RDW Std Deviation 50.4 H, RDW Coeff of Herbert 14.1, Plt Count 241, MPV 10.7, Immature Gran % (Auto) 1.400 H, Neut % (Auto) 73.1 H, Lymph % (Auto) 13.8 L, Haralson % (Auto) 9.6, Eos % (Auto) 1.5, Baso % (Auto) 0.6, Absolute Neuts (auto) 11.5 H, Absolute Lymphs (auto) 2.16, Nucleated RBC % 0, Sodium 134 L, Potassium 4.4, Chloride 95 L, Carbon Dioxide 27.0, Anion Gap 12, BUN 84 H, Creatinine 6.91 H, Estim Creat Clear Calc 9.83, Est GFR (MDRD) Af Amer 10 L, Est GFR (MDRD) Non-Af 8 L, BUN/Creatinine Ratio 12.2, Glucose 77, Lactic Acid 1.5, Calcium 8.7, Total Bilirubin 0.40, AST 34, ALT 29, Alkaline Phosphatase 49, Troponin I High Sens 28, B-Natriuretic Peptide 46.9, Total Protein 7.0, Albumin 3.2, Globulin 3.8, Albumin/Globulin Ratio 0.8 L, Lipase 18 Imaging Radiology Impression Chest X-Ray 01/11/24 20:53 IMPRESSION: Left basilar pulmonary opacity may be atelectasis or pneumonia. Electronically Signed: Wisam Coffman DO at 21:18 EDT , Assessment & Plan Assessment/Plan (1) Acute renal failure: QUALIFIERS: Acute renal failure type: unspecified Qualified Co de(s): N17.9 - Acute kidney failure, unspecified (2) Adverse drug reaction: QUALIFIERS: Encounter type: initial encounter Qualified Code(s): T50.905A - Adverse effect of unspecified drugs, medicaments and biological substances, initial encounter (3) Metabolic encephalopathy: (4) Generalized weakness: (5) Falls frequently: PLAN: Plan 1. Severe acute renal failure with serum creatinine of 6.91 mg/dL and BUN of 84 mg/dL present on admission in the setting of a known history of BPH - Admit to general medical floor. Continue aggressive volume resuscitation and recheck BMP in the a.m. to ensure improvement. Place Matt for strict I's and O's. Check renal ultrasound to evaluate for potential obstruction. Avoid potentially nephrotoxic agents. Finally, due to the severity of patient's acute renal failure we will consult the electrician sound on-call to see this patient on rounds in the a.m. further recommendations with help appreciated in advance. 2. Adverse drug reaction to combination of Lasix and ARMIN inhibitor use to treat essential hypertension likely causing #1 - Hold scheduled antihypertensives in light of #1. Give IV hydralazine as needed for systolic blood pressure greater than 160 mmHg. Stop Lasix and lisinopril to prevent further deterioration of patient's remaining renal function. 3. Metabolic encephalopathy with confusion and generalized weakness with frequent falls arising from #1 & #2 - Continue supportive care and monitor for improvement. PT/OT and case management consult and treat on rounds in the a.m. for further recommendations with help appreciated in advance. 4. Hyperlipidemia - Resume statin and check lipid profile. 5. Overweight; with BMI of 26.6 this admission - Weight loss will be recommended. Check TSH. 6. Diabetes mellitus type 2; of unknown control - ADA/renal diet. Fingerstick blood sugars before every meal and at bedtime + scale insulin. Check hemoglobin A1c to objectively evaluate quality of diabetic control. 7. History of paroxysmal atrial fibrillation; on apixaban - Continue apixaban at half of his previous dose due to his new severe acute renal failure. 8. History of chronic diastolic CHF; with preserved LVEF - Stable with patient clinically dry at time of admission. 9. Peripheral arterial disease - Noted. 10. Erectile dysfunction - Stable. 11. History of bilateral carotid artery stenosis; status post endarterectomy - Noted. 12. History of syncope; previously ascribed to medications - Noted. 13. Raynaud's disease - Stable a this time. 14. Peripheral neuropathy - Resume current management. 15. DDD of the lumbar spine; status post back surgery with osteoarthritis and chronic pain - Continue as needed oxycodone for severe level 6-10 out of 10 pa in. 16. History of herpetic infection; on chronic acyclovir - Resume acyclovir as previous. 17. DVT prophylaxis - Patient is already on apixaban for #6 which will be continued at 50% of his current dosing to account for his new renal failure. Total time: Approximately 55 minutes. Charges/Coding Visit Charges Inpatient E&M: 13118 Init Hosp L2
[2024-01-11 22:02] LABS: Differential Comment SCANNED
[2024-01-11 22:13] LABS: International Normalized Ratio 1.4; Prothrombin Time (Protime)PT. 17.4 SECONDS (11.7-14.9)
[2024-01-11 22:15] LABS: Alcohol, Blood (Medical)-Serum < 3.0 mg/dL
[2024-01-11 22:20] LABS: Amphetamine Urine VISTA NEGATIVE (<1000 ng/mL); Barbiturate Urine VISTA NEGATIVE (< 200 ng/mL); Benzodiazepine Urine VISTA NEGATIVE (< 200 ng/mL); Cocaine Urine VISTA NEGATIVE (< 300 ng/mL); Ecstacy Urine VISTA NEGATIVE (< 500 ng/mL); Methadone Urine VISTA NEGATIVE (< 300 ng/mL); PCP Urine VISTA NEGATIVE (< 25 ng/mL); THC Urine VISTA NEGATIVE (< 50 ng/mL); Vista UDS pH Range 4
[2024-01-11 22:23] LABS: CPK Total, Creatine Kinase 493 U/L (39-308)
[2024-01-11 22:32] LABS: Squamous Epithelial Cells - UA 0 SEEN /hpf (0-5)
[2024-01-11 22:33] LABS: Color, Urine Yellow (Yellow); Glucose, Dipstick Normal (Normal); Ketone-Dipstick 5 mg/dl (Negative); Leukocyte Esterase-Dipstick 25 /ul (Negative); Nitrite-Dipstick Negative (Negative); Occult Blood-Urine 50 /ul (Negative); Protein-Dipstick 30 mg/dl (Negative); Specific Gravity, Urine 1.015 (1.002-1.030); Urine Clarity Clear (Clear); Urine Urobilinogen Normal (Normal)
[2024-01-11] MEDS: 0.9% Normal Saline (500mL Bag) 500 ML 1000 ML IV (22:33)
[2024-01-11 22:34] LABS: Urine Bilirubin Dipstick 1 mg/dL (Negative)
[2024-01-11] MEDS: 0.9% Normal Saline (1000mL) 1,000 ML 150 ML IV (22:35)
[2024-01-11 22:44] LABS: Bacteria RARE /hpf (None Seen); Hyaline Cast 0-5 SEEN /lpf (0-5); Mucous, Urine 1+ /hpf (<or=2+); Red Blood Cells-Urine 0-5 SEEN /hpf (0-5); White Blood Cells 0-5 SEEN /hpf (0-5)
--- NOTE | 2024-01-11 23:13 | US_ITS ---
EXAM: US RETROPERITONEAL LIMITED, RENAL CLINICAL INDICATION: Severe acute renal failure TECHNIQUE: Limited grayscale and color Doppler sonographic evaluation of the retroperitoneum was performed. COMPARISON: CT abdomen and pelvis, 12/20/2023 FINDINGS: RIGHT KIDNEY: The right kidney measures 12.5 cm in length. No hydronephrosis. No shadowing calculus. No perinephric collection is demonstrated. LEFT KIDNEY: The left kidney measures 11.2 cm in length. No hydronephrosis. No shadowing calculus. No perinephric collection is demonstrated. BLADDER: The ureteral jets are not visualized. Urinary bladder appears otherwise normal. US/Kidney and Bladder IMPRESSION: No acute abnormalities. Electronically Signed: Wisam Coffman DO at 23:57 EDT ,
--- NOTE | 2024-01-11 23:34 | EX.ED.DYSGE1 ---
HPI History of Present Illness Chief Complaint: Dizziness Informant: patient Narrative Narrative: Patient is a 78-year-old male with history of heart failure with preserved ejection fraction, paroxysmal atrial fibrillation (on Eliquis), peripheral arterial disease, Raynaud's disease, hypertension, diabetes and neuropathy presenting with generalized weakness and falls. Patient is normally amatory but has been able to get out of bed the past few days. 1 week ago he was still walking for family is at the bedside. His legs been giving out has been falling over for the past few weeks. His blood pressures been low and he recently stopped his lisinopril. Family also notes that he has a tremor that is much more pronounced today and is also been having visual hallucinations. Daughter went to check on him today and was worried that his fingers were blue and called 911. He currently is being evaluated for vascular surgery outpatient for aortic calcification and has vascular studies pending as well and is referral to oncology for elevated white blood cell count. Patient complained of some nausea but denies any associated vomiting or abdominal pain. Does not wear home O2. No report of any fever or recent flulike illness. Patient denies any cough or difficulty breathing. No other complaints or concerns reported at this time. [facility] Medical History Arthritis Atrial fibrillation, new onset Back pain Bilateral carotid artery stenosis BPH w urinary obs/LUTS Carotid artery disease CHF (congestive heart failure) Chronic fatigue Chronic insomnia Chronic pain DDD (degenerative disc disease), lumbar Diabetes Dyslipidemia ED (erectile dysfunction) Essential tremor Folliculitis H/o fracture to left knee Herpes History of irregular heartbeat HTN (hypertension) Injury of back Irregular heart beat Non-smoker Opioid use Peripheral arterial occlusive disease Peripheral neuropathy Raynaud disease SOB (shortness of breath) Spinal cord stimulator status Syncope Home Medications lisinopril 20 mg tablet 20 mg PO DAILY HTN 05/14/21 [History Last Taken 02/10/22 04:45 20 mg] metoprolol tartrate 25 mg tablet 25 mg PO BID #60 tabs 09/19/23 [Rx Last Taken Unknown] sennosides 8.6 mg-docusate sodium 50 mg tablet (Stool Softener-Stimulant Laxative) 2 tab PO BID PRN PRN Constipation #0 tabs 09/19/23 [Rx Last Taken Unknown] lovastatin 10 mg tablet 10 mg PO DAILY 09/26/23 [History Last Taken Unknown] acyclovir 400 mg tablet 400 mg PO .QOD 11/09/23 [History Last Taken Unknown] apixaban 5 mg tablet (Eliquis) 5 mg PO BID #60 tabs 11/09/23 [Rx Last Taken Unknown] empagliflozin 10 mg tablet (Jardiance) 10 mg PO DAILY #30 tabs 11/09/23 [Rx Last Taken Unknown] furosemide 20 mg tablet 20 mg PO DAILY #90 tabs 11/09/23 [Rx Last Taken Unknown] glipizide 5 mg tablet 5 mg PO BID 11/09/23 [History Last Taken Unknown] potassium chloride 10 mEq tablet,extended release 10 meq PO DAILY #90 tabs 11/09/23 [Rx Last Taken Unknown] ondansetron 4 mg disintegrating tablet 4 mg PO BID PRN 12/14/23 [History Last Taken Unknown] oxycodone-acetaminophen 10 mg-325 mg tablet 1 tab PO Q4-6H PRN 12/14/23 [History Last Taken Unknown] promethazine 25 mg tablet 25 mg PO Q4H PRN nausea and vomiting #10 tabs 12/20/23 [Rx Last Taken Unknown] gabapentin 400 mg capsule 400 mg PO .every 6 hours PRN 12/28/23 [History Last Taken Unknown] Allergy/AdvReac Type Severity Reaction Status Date / Time tramadol [From Ultram] Allergy Severe near Verified 01/03/24 09:24 duloxetine AdvReac lightheaded Verified 01/03/24 09:24 ness pregabalin [From Lyrica] AdvReac hallucinations, Verified 01/03/24 09:24 dizzy Family History Mother Hypertension CVA (cerebral vascular accident) Brother Aneurysm CVA (cerebral vascular accident) Melanoma Father Alcoholism Surgical History History of back surgery History of colonoscopy History of endarterectomy History of knee surgery History of tonsillectomy Social History household members: spouse housing: house Smoking Status: Never smoker alcohol intake: current alcohol intake frequency: holidays/special occasions only substance use type: does not use caffeine: No what type of physical activity do you participate in: none ROS ROS ED Constitutional Constitutional ED: Reports other Details: Generalized weakness, falls ; Denies chills or fever(s) Eyes Eyes: Denies change in vision ENT ENT ED: Denies sore throat Cardiovascular Cardiovascular: Denies chest pain Respiratory/Chest Respiratory/Chest: Denies cough or dyspnea Gastrointestinal Gastrointestinal: Reports nausea; Denies abdominal pain, constipation, diarrhea, melena or vomiting Genitourinary Genitourinary ED: Denies dysuria or urinary frequency Musculoskeletal Musculoskeletal: Denies arthralgias or myalgias Integumentary Denies rash Neurologic Neurologic: Reports weakness and other Details: Tremor ; Denies headache(s) or paresthesias Psychiatric Psychiatric: Reports other Details: Visual hallucinations EXAM Physical Exam Const Vital Signs: 01/11/24 19:53 01/11/24 19:59 01/11/24 20:30 Temperature 98.5 F 98.5 F Temperature Source Oral Oral Pulse Rate 84 86 Respiratory Rate 22 H 16 Respiratory Effort Normal Respiratory Pattern Normal Blood Pressure 87/53 L 86/73 L Blood Pressure Mean 64 77 Pulse Ox 97 97 Oxygen Delivery Method Room Air Room Air Oxygen Flow Rate (L/min) 01/11/24 20:59 01/11/24 21:59 01/11/24 22:00 Temperature 97.7 F L 97.7 F L 98.1 F Temperature Source Temporal Temporal Temporal Pulse Rate 80 86 77 Respiratory Rate 15 16 16 Respiratory Effort Respiratory Pattern Blood Pressure 81/67 L 77/52 L 102/83 H Blood Pressure Mean 71 60 89 Pulse Ox 92 97 92 Oxygen Delivery Method Nasal Cannula Nasal Cannula Nasal Cannula Oxygen Flow Rate (L/min) 2 2 01/11/24 23:00 01/11/24 23:00 01/11/24 23:30 Temperature 97.9 F 97.7 F L 97.8 F Temperature Source Temporal Temporal Temporal Pulse Rate 86 78 81 Respiratory Rate 17 13 13 Respiratory Effort Respiratory Pattern Blood Pressure 92/65 93/57 L 95/74 Blood Pressure Mean 74 69 81 Pulse Ox 95 96 95 Oxygen Delivery Method Nasal Cannula Nasal Cannula Nasal Cannula Oxygen Flow Rate (L/min) 2 2 Positive well nourished and well developed General Appearance ED: well developed and NAD HEENT Reports TM's clear and dry mucous membranes Negative for trauma Tympanic Membrane ED: Yes TM's clear Mouth ED: Yes dry mucous membranes Mouth: dry mucous membranes Eyes PERRL and EOMs intact bilaterally Neck supple and no JVD Chest Wall inspection of chest normal and palpation of chest normal Resp normal respiratory effort and clear to auscultation bilaterally Cardio regular rate and regular rhythm GI normal to inspection, nondistended, normoactive bowel sounds and non-tender Palpation: Negative for guarding Extremity normal to inspection General Extremety ED: Negative for edema or tenderness General Extremity: Negative for edema Neuro Neuro Narrative: No focal deficits appreciated. Patient slightly slow to respond but overall responds appropriately to questions. Resting tremor present but does improve throughout his ER course Sensorium / Orientation: alert Motor Exam: general weakness Psych mental status grossly normal Skin no rashes or lesions noted and no wounds MDM MDM MDM Narrative Medical decision making narrative: Patient is evaluated for weakness and falls. Blood pressure soft upon arrival, 87/53. Differential includes sepsis, intracranial hemorrhage, dehydration, acute kidney injury , Urinary tract infection or electrolyte abnormality. Patient is found to have leukocytosis of 15.7 however patient has had an elevated blood cell counts in the past and not sure if this is associate with acute infection or not. Addition his immature granulocytes are actually downtrending at this time. Will look for source of infection however. It he has mild anemia with a hemoglobin 11.6 but this appears stable from last week where he was 12.2. No signs of active bleeding at this time. BMP shows a profound kidney injury. His creatinine today is 6.91 where his baseline is 1.9. His BUN is also elevated 84. Also he could have some uremia causing encephalopathy. Give report of falls and laying in bed all week I did check a CK level which is also elevated at 493 however I do not think is elevated enough to cause renal failure from rhabdomyolysis to this degree. Cardiac workup is normal. Chest x-ray does showed questionable atelectasis versus infiltrates. Given the patient does have new O2 demand with this leukocytosis will start antibiotics for this. While patient does technically meet criteria for sepsis I do not think his creatinine elevation is secondary to septic shock from pneumonia and I do not think patient actually has severe sepsis or septic shock. Is given a dose of antibiotics in the ER (Rocephin and azithromycin) Patient does not have findings since with acute urinary retention per nursing staff to straight cath (he only had 250 cc of urine out with straight cath for urine sample). Family also tells me that they are concerned that maybe he is getting poisoned by his as she takes a lot of medications and his altered mental status sometimes and shaking. I did add on a urine tox because of this which is positive for opiates which patient is prescribed. At this time I do not see an obvious reason to believe that patient has been poisoned however without knowing what the concerned when is it is more difficult for me to evaluate. Patient is admitted to medicine service. Blood pressure is fluid responsive and he receives a liter IV bolus as well and a second liter at 150 cc/h. Case is discussed admitting physician, Dr. Osborne. Lab Data Attestation: I reviewed the patient's lab results. Labs: Laboratory Results - last 24 hr 01/11/24 01/11/24 01/11/24 21:00 21:05 21:50 WBC 15.7 H RBC 3.75 L Hgb 11.6 L Hct 36.9 L MCV 98.4 H MCH 30.9 MCHC 31.4 L RDW Std Deviation 50.4 H RDW Coeff of Herbert 14.1 Plt Count 241 MPV 10.7 Immature Gran % (Auto) 1.400 H Neut % (Auto) 73.1 H Lymph % (Auto) 13.8 L [place] % (Auto) 9.6 Eos % (Auto) 1.5 Baso % (Auto) 0.6 Absolute Neuts (auto) 11.5 H Absolute Lymphs (auto) 2.16 Nucleated RBC % 0 Differential Comment SCANNED Diff Path Review February foll PT 17.4 H INR 1.4 Sodium 134 L Potassium 4.4 Chloride 95 L Carbon Dioxide 27.0 Anion Gap 12 BUN 84 H Creatinine 6.91 H Estim Creat Clear Calc 9.83 Est GFR (MDRD) Af Amer 10 L Est GFR (MDRD) Non-Af 8 L BUN/Creatinine Ratio 12.2 Glucose 77 Lactic Acid 1.5 Calcium 8.7 Total Bilirubin 0.40 AST 34 ALT 29 Alkaline Phosphatase 49 Total Creatine Kinase 493 H Troponin I High Sens 28 B-Natriuretic Peptide 46.9 Total Protein 7.0 Albumin 3.2 Globulin 3.8 Albumin/Globulin Ratio 0.8 L Lipase 18 Urine Color Yellow Urine Clarity Clear Urine pH 5.0 Ur Specific [place] 1.015 Urine Protein 30 H Urine Glucose (UA) Normal Urine Ketones 5 H Urine Occult Blood 50 H Urine Nitrite Negative Urine Bilirubin 1 H Urine Urobilinogen Normal Ur Leukocyte Esterase 25 H Urine RBC 0-5 SEEN Urine WBC 0-5 SEEN Ur Squamous Epith Cells 0 SEEN Urine Bacteria RARE Hyaline Casts 0-5 SEEN Urine Mucus 1+ Urine Opiates Screen POSITIVE H Urine Methadone Screen NEGATIVE Ur Barbiturates Screen NEGATIVE Ur Phencyclidine Scrn NEGATIVE Ur Amphetamines Screen NEGATIVE MDMA (Ecstasy) Screen NEGATIVE U Benzodiazepines Scrn NEGATIVE Urine Cocaine Screen NEGATIVE U Cannabinoids Screen NEGATIVE Ur Drug Screen Comment Ethyl Alcohol < 3.0 Radiography Diagnostic Testing: Clinical Impression(s) from Imaging Studies Brain CT 01/11/24 20:28 IMPRESSION: Chronic microvascular ischemic changes. No CT evidence of acute intracranial pathology. Electronically Signed: Wisam DasilvaAmy Coffman DO at 22:08 EDT , Chest X-Ray 01/11/24 20:53 IMPRESSION: Left basilar pulmonary opacity may be atelectasis or pneumonia. Electronically Signed: Wisam DasilvaAmy Coffman DO at 21:18 EDT , Rhythm Strip Rhythm Strip: Sinus Rhythm Rate: 79 Ectopy: None EKG Initial EKG: Attestation: I personally reviewed and interpreted this EKG as follows: Interpretation: Sinus Rhythm Comments: Normal sinus rhythm at rate of 79 bpm Left axis deviation Normal intervals Normal ST segments Compared to prior EKG on 09/17/2023, patient is no longer in atrial fibrillation and has reversal strain pattern Discharge Plan Triage Chief Complaint: Dizziness ED Provider: Lani Hall Dx/Rx/DC Orders Clinical Impression: Elevated CPK, Acute renal failure, Adverse drug reaction, Falls frequently, AMS (altered mental status), Left lower lobe pneumonia, Debility Prescriptions: No Action lovastatin 10 mg tablet 10 mg PO DAILY glipizide 5 mg tablet 5 mg PO BID acyclovir 400 mg tablet 400 mg PO .QOD Eliquis 5 mg tablet 5 mg PO BID Qty: 60 11RF furosemide 20 mg tablet 20 mg PO DAILY Qty: 90 3RF potassium chloride 10 mEq tablet extended release 10 meq PO DAILY Qty: 90 3RF Jardiance 10 mg tablet 10 mg PO DAILY Qty: 30 11RF gabapentin 400 mg capsule 400 mg PO .every 6 hours PRN ondansetron 4 mg tablet,disintegrating 4 mg PO BID PRN oxycodone-acetaminophen 10-325 mg tablet 1 tab PO Q4-6H PRN lisinopril 20 mg Tablet 20 mg PO DAILY Hold Instructions: Hold for 5 days and then restart low-dose 10 mg daily with holding parameters, hold for SBP less than 130 mmHg sennosides-docusate sodium [Stool Softener-Stimulant Laxat] 8.6-50 mg Tablet 2 tab PO BID PRN PRN (Reason: Constipation) Qty: 0 0RF metoprolol tartrate 25 mg Tablet 25 mg PO BID Qty: 60 2RF Rx Instructions: Hold for heart less than 50 or systolic blood pressure less than 100 mmHg. promethazine 25 mg tablet 25 mg PO Q4H PRN (Reason: nausea and vomiting) Qty: 10 0RF Primary Care Provider: Delta Blair Referrals: Delta Blair DO [Primary Care Provider] - Disposition Disposition: Acute Care Hospital [facility]
[2024-01-12] VITALS (18 sets, daily range): BP systolic 82–131; BP diastolic 48–94; PULSE 74–98; RESP 11–18; TEMP 35.9–37.3; O2SAT 83–98; BMI 25.7
[2024-01-12] MEDS: Ceftriaxone 1 GM/50 ML BAG IV (00:40)
[2024-01-12] MEDS: Azithromycin 500 MG in Dextrose 5%-Water (250mL Bag) 250 ML 250 MG IV (01:32)
[2024-01-12] MEDS: 0.9% Normal Saline (1000mL) 1,000 ML 150 ML IV ×4 (01:38→21:25)
[2024-01-12 06:23] LABS: Bedside Glucose 84 mg/dL (74-106)
[2024-01-12 07:03] LABS: Absolute Lymphocyte Count 1.67 X10^3/uL (0.83-4.51); Basophil# 0.07 X10^3/uL; Basophil% 0.6 % (0-1); Eosinophil# 0.23 X10^3/uL; Eosinophils% 1.9 % (0-5); Hematocrit 34.1 % (40-54); Hemoglobin 10.7 g/dL (13.0-16.5); Lymphocyte # 1.67 X10^3/ul (0.83-4.51); Lymphocyte % 13.5 % (19-41); Mean Corp Hgb Conc 31.4 g/dL (32-36); Mean Corpuscular Hgb 31.4 pg (27.0-32.0); Mean Platelet Vol. 10.6 fl (6.2-12.0); Monocyte# 1.31 X10^3/uL; Monocyte% 10.6 % (0-10); NRBC Flagged by Analyzer 0 % (0-5); Neutrophil # 8.97 X10^3/uL (2.7-7.7); Neutrophil % 72.2 % (47-70); Platelet Count 219 K/mm3 (150-450); RBC Distribution Width CV 14.1 % (11.6-14.6); RBC Distribution Width SD 52.1 fl (35.1-43.9); Red Blood Count 3.41 M/mm3 (4.6-6.2); White Blood Count 12.4 K/mm3 (4.4-11.0)
[2024-01-12 07:52] LABS: ALB/GLOB Ratio 0.8 RATIO (0.9-2.4); AST(SGOT) 33 U/L (15-37); Alanine Aminotransfer ALT/SGPT 25 U/L (16-61); Albumin, Serum 2.8 g/dL (3.2-5.0); Alkaline Phosphatase 48 U/L (45-117); Anion Gap 10 (5-15); BUN 79 mg/dL (7-18); BUN/Creat Ratio 14.2 RATIO (10-20); Calcium,Total 8.1 mg/dL (8.5-10.1); Chloride 100 mmol/L (98-107); Creatinine, Serum 5.55 mg/dL (0.70-1.30); EST Glomerular Filtration Rate 11 mL/min (>60); Est Glom Filt Rate - Afr Amer 13 mL/min (>60); Estimated Creatinine Clearance 12.23 ml/min; Globulin 3.6 g/dL (2.2-4.2); Glucose 94 mg/dL (74-106); Magnesium 2.8 mg/dL (1.6-2.6); Phosphorus 5.5 mg/dL (2.5-4.9); Potassium 4.2 mmol/L (3.5-5.1); Protein, Total 6.4 g/dL (6.4-8.2); Sodium Level 137 mmol/L (136-145); Thyroid Stim Hormone (TSH) 0.75 uIU/mL (0.358-3.74)
--- NOTE | 2024-01-12 09:00 | PN.HOSP_ITS ---
Reason for Visit Reason for Visit: Diagnoses Polyneuropathy, unspecified (01/11/24) Metabolic encephalopathy (01/11/24) Acute kidney failure, unspecified (01/11/24) Repeated falls (01/11/24) Weakness (01/11/24) Adverse effect of unspecified drugs, medicaments and biological substances, initial encounter (01/11/24) Subjective Subjective Having myoclonus. Normally has tremors, but does not drop objects. Objective Data Objective Data Vital Signs: Vital Signs Temp Pulse Resp BP Pulse Ox O2 Del Method O2 Flow Rate 36.1 C L 83 18 101/85 H 98 Nasal Cannula 3 01/12/24 05:29 01/12/24 05:29 01/12/24 05:29 01/12/24 05:29 01/12/24 07:52 01/12/24 07:52 01/12/24 07:52 Oxygen Flow Rate (L/min) 3 Oxygen Delivery Method Nasal Cannula Weight: 86.1 kg Body Mass Index (BMI) 25.7 Intake & Output: Intake and Output for Last 24 Hours 01/10/24 01/11/24 01/12/24 23:59 23:59 23:59 Intake Total 700 / 700 1762.5 / 1762.5 Output Total 850 / 850 Balance 700 / 700 912.5 / 912.5 Lab / Micro Data 01/12/24 06:30 01/12/24 06:30 Labs: Laboratory Results - last 24 hr 01/11/24 21:00: Total Creatine Kinase 493 H 01/11/24 21:05: WBC 15.7 H, RBC 3.75 L, Hgb 11.6 L, Hct 36.9 L, MCV 98.4 H, MCH 30.9, MCHC 31.4 L, RDW Std Deviation 50.4 H, RDW Coeff of Herbert 14.1, Plt Count 241, MPV 10.7, Immature Gran % (Auto) 1.400 H, Neut % (Auto) 73.1 H, Lymph % (Auto) 13.8 L, [place] % (Auto) 9.6, Eos % (Auto) 1.5, Baso % (Auto) 0.6, Absolute Neuts (auto) 11.5 H, Absolute Lymphs (auto) 2.16, Nucleated RBC % 0, Differential Comment SCANNED, Diff Path Review May foll, Sodium 134 L, Potassium 4.4, Chloride 95 L, Carbon Dioxide 27.0, Anion Gap 12, BUN 84 H, Creatinine 6.91 H, Estim Creat Clear Calc 9.83, Est GFR (MDRD) Af Amer 10 L, Est GFR (MDRD) Non- Af 8 L, BUN/Creatinine Ratio 12.2, Glucose 77, Lactic Acid 1.5, Calcium 8.7, Tot al Bilirubin 0.40, AST 34, ALT 29, Alkaline Phosphatase 49, Troponin I High Sens 28, B-Natriuretic Peptide 46.9, Total Protein 7.0, Albumin 3.2, Globulin 3.8, Albumin/Globulin Ratio 0.8 L, Lipase 18 01/11/24 21:50: PT 17.4 H, INR 1.4, Urine Color Yellow, Urine Clarity Clear, Urine pH 5.0, Ur Specific [place] 1.015, Urine Protein 30 H, Urine Glucose (UA) Normal, Urine Ketones 5 H, Urine Occult Blood 50 H, Urine Nitrite Negative, Urine Bilirubin 1 H, Urine Urobilinogen Normal, Ur Leukocyte Esterase 25 H, Urine RBC 0-5 SEEN, Urine WBC 0-5 SEEN, Ur Squamous Epith Cells 0 SEEN, Urine Bacteria RARE, Hyaline Casts 0-5 SEEN, Urine Mucus 1+, Urine Opiates Screen POSITIVE H, Urine Methadone Screen NEGATIVE, Ur Barbiturates Screen NEGATIVE, Ur Phencyclidine Scrn NEGATIVE, Ur Amphetamines Screen NEGATIVE, MDMA (Ecstasy) Screen NEGATIVE, U Benzodiazepines Scrn NEGATIVE, Urine Cocaine Screen NEGATIVE, U Cannabinoids Screen NEGATIVE, Ur Drug Screen Comment , Ethyl Alcohol < 3.0 01/12/24 06:00: POC Glucose 84 01/12/24 06:30: WBC 12.4 H, RBC 3.41 L, Hgb 10.7 L, Hct 34.1 L, MCV 100.0 H, MCH 31.4, MCHC 31.4 L, RDW Std Deviation 52.1 H, RDW Coeff of Herbert 14.1, Plt Count 219, MPV 10.6, Immature Gran % (Auto) 1.200 H, Neut % (Auto) 72.2 H, Lymph % (Auto) 13.5 L, [place] % (Auto) 10.6 H, Eos % (Auto) 1.9, Baso % (Auto) 0.6, Absolute Neuts (auto) 9.0 H, Absolute Lymphs (auto) 1.67, Nucleated RBC % 0, Sodium 137, Potassium 4.2, Chloride 100, Carbon Dioxide 27.0, Anion Gap 10, BUN 79 H, Creatinine 5.55 H, Estim Creat Clear Calc 12.23, Est GFR (MDRD) Af Amer 13 L, Est GFR (MDRD) Non-Af 11 L, BUN/Creatinine Ratio 14.2, Glucose 94, Calcium 8.1 L, Phosphorus 5.5 H, Magnesium 2.8 H, Total Bilirubin 0.50, AST 33, ALT 25, Alkaline Phosphatase 48, Total Protein 6.4, Albumin 2.8 L, Globulin 3.6, Albumin/Globulin Ratio 0.8 L, TSH 0.75 Micro: Microbiology 01/11/24 21:05 Mucosa - Nose SARS-CoV-2, Influenza & RSV (PCR) - Final Radiography Diagnostic Testing: Radiology Impression Brain CT 01/11/24 20:28 IMPRESSION: Chronic microvascular ischemic changes. No CT evidence of acute intracranial pathology. Electronically Signed: Wisam Coffman DO at 22:08 EDT , Chest X-Ray 01/11/24 20:53 IMPRESSION: Left basilar pulmonary opacity may be atelectasis or pneumonia. Electronically Signed: Wisam Coffman DO at 21:18 EDT , Renal Ultrasound 01/11/24 23:13 IMPRESSION: No acute abnormalities. Electronically Signed: Wisam Coffman DO at 23:57 EDT , Rhythm Strip Rhythm Strip: Sinus Rhythm Rate: 79 Ectopy: None Physical Exam Const alert and no apparent distress HEENT head/scalp atraumatic and moist oral mucous membranes Resp normal respiratory effort, no retractions, no use of accessory muscles and clear to auscultation bilaterally Cardio regular rate, regular rhythm, S1 normal heart sound and S2 normal heart sound GI normal to inspection, nondistended, normoactive bowel sounds, soft to palpation, non-tender and non-distended Extremity normal to inspection Neuro Neuro Narrative: myoclonus of upper extremities. Sensorium / Orientation: awake and alert Psych Psych Narrative: flat affect. Assessment & Plan Assessment/Plan (1) Acute renal failure: QUALIFIERS: Acute renal failure type: unspecified Qualified Code(s): N17.9 - Acute kidney failure, unspecified (2) Metabolic encephalopathy: PLAN: Plan BRENDON * Creatinine on presention was 6.91. Currently improved * Furosemide held (I don't see and ACEi on home list) * Matt catheter placed * renal US normal * nephrology consulted encephalopathy * likely multifactorial from BRENDON and gabapentin. * hold gabapentin. 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 * monitor. * continue to hold gabapentin. Chronic conditions: * Hyperlipidemia - Resume statin and check lipid profile. * Overweight; with BMI of 26.6 this admission - Weight loss will be recommended. Check TSH. * Diabetes mellitus type 2; of unknown control - ADA/renal diet. Fingerstick blood sugars before every meal and at bedtime + scale insulin. Check hemoglobin A1c to objectively evaluate quality of diabetic control. * History of paroxysmal atrial fibrillation; on apixaban - Continue apixaban at half of his previous dose due to his new severe acute renal failure. * History of chronic diastolic CHF; with preserved LVEF - Stable with patient clinically dry at time of admission. * peripheral arterial disease - Noted. DVT prophylaxis - not indicated as already on apixaban. DW his family at bedside. Greater than 55 minutes of which greater than 50% time was counseling the family about his BRENDON, potential etiologies, the reason for holding furosemide. Additionally discussing myoclonus and the potential etiology be related with his BRENDON and gabapentin and explaining why gabapentin has been held. Discussed pain control and we can utilize oxycodone as long as he is not somnolent. Charges/Coding Visit Charges Inpatient E&M: 29712 Subs Hosp L3
[2024-01-12] MEDS: APIXABAN 2.5 MG TABLET (WCH) PO ×2 (09:25→21:19)
--- NOTE | 2024-01-12 11:35 | CON.PCM.RE_ITS ---
Assessment & Plan Assessment/Plan (1) BRENDON (acute kidney injury): PLAN: Baseline creatinine in August 2023 at 0.9. When he was admitted here for congestive heart failure, creatinine was around 1.4 and he came in with a creatinine of 6.9. significantly decreased blood pressure. Better today with IV fluids. Renal ultrasound without any hydronephrosis Urine analysis looks like to be benign microscopic hematuria. I will send a urine protein creatinine ratio Extensive atherosclerotic vascular disease in the aorta and branches. CT a bdomen reviewed. He was scheduled to get a CT angiogram by vascular surgery. We will need that eventually once his kidney function improves to rule out renal artery stenosis. Lisinopril can theoretically cause acute renal failure in the setting of bilateral renal artery stenosis. Continue to hold lisinopril. HPI Consult Data Date of Consult: 01/12/24 HPI Narrative Reason for Consultation: Renal failure HPI Narrative: RUBEN ROSA, is a 78 M who presents to the hospital with dizziness, weakness. Nephrology on consultation due Acute renal failure. He has had several ongoing events recently. About 3 months ago he was admitted to the hospital with congestive heart failure with preserved ejection fraction received Lasix. Currently on p.o. Lasix. Stress test was negative. 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 Saw vascular surgery, there was a plan to do CT angiogram recently saw hematology for evaluation of chronic leukocytosis workup in progress. Baseline creatinine was normal in August 2023, over the last 3 months creatinine was around 1.4-1.6. He came in with a creatinine of 6.9, better at 5.5 today. Apparently his blood pressure was low was told to stop lisinopril. Denies any urinary complaints. He says urine output was low, better today [facility] Medical History Arthritis Atrial fibrillation, new onset Back pain Bilateral carotid artery stenosis BPH w urinary obs/LUTS Carotid artery disease CHF (congestive heart failure) Chronic fatigue Chronic insomnia Chronic pain DDD (degenerative disc disease), lumbar Diabetes Dyslipidemia ED (erectile dysfunction) Essential tremor Folliculitis H/o fracture to left knee Herpes History of irregular heartbeat HTN (hypertension) Injury of back Irregular heart beat Non-smoker Opioid use Peripheral arterial occlusive disease Peripheral neuropathy Raynaud disease SOB (shortness of breath) Spinal cord stimulator status Syncope Home Medications metoprolol tartrate 25 mg tablet 25 mg PO BID blood pressure #60 tabs 09/19/23 [Rx Last Taken Unknown] sennosides 8.6 mg-docusate sodium 50 mg tablet (Stool Softener-Stimulant Laxative) 2 tab PO BID PRN PRN Constipation #0 tabs 09/19/23 [Rx Last Taken Unknown] lovastatin 10 mg tablet 10 mg PO DAILY cholesterol 09/26/23 [History Last Taken Unknown] acyclovir 400 mg tablet 400 mg PO .QOD antiviral 11/09/23 [History Last Taken Unknown] apixaban 5 mg tablet (Eliquis) 5 mg PO BID a fib #60 tabs 11/09/23 [Rx Last Taken Unknown] empagliflozin 10 mg tablet (Jardiance) 10 mg PO DAILY blood sugar #30 tabs 11/09/23 [Rx Last Taken Unknown] furosemide 20 mg tablet 20 mg PO DAILY water pill #90 tabs 11/09/23 [Rx Last Taken Unknown] glipizide 5 mg tablet 5 mg PO DAILY blood sugar 11/09/23 [History Last Taken Unknown] potassium chloride 10 mEq tablet,extended release 10 meq PO DAILY replacement #90 tabs 11/09/23 [Rx Last Taken Unknown] ondansetron 4 mg disintegrating tablet 4 mg PO BID PRN nausea and vomiting 12/14/23 [History Last Taken Unknown] oxycodone-acetaminophen 10 mg-325 mg tablet 1 tab PO Q4-6H PRN pain 12/14/23 [History Last Taken Unknown] gabapentin 400 mg capsule 400 mg PO .every 6 hours PRN neuro pain 12/28/23 [History Last Taken Unknown] Allergy/AdvReac Type Severity Reaction Status Date / Time tramadol [From Ultram] Allergy Severe near Verified 01/03/24 09:24 duloxetine AdvReac lightheaded Verified 01/03/24 09:24 ness pregabalin [From Lyrica] AdvReac hallucinations, Verified 01/03/24 09:24 dizzy Family History Mother Hypertension CVA (cerebral vascular accident) Brother Aneurysm CVA (cerebral vascular accident) Melanoma Father Alcoholism Surgical History History of back surgery History of colonoscopy History of endarterectomy History of knee surgery History of tonsillectomy Social History household members: spouse housing: house Smoking Status: Never smoker alcohol intake: current alcohol intake frequency: holidays/special occasions only substance use type: does not use caffeine: No what type of physical activity do you participate in: none ROS ROS Narrative Negative except above Physical Exam Narrative Alert awake oriented x 3 no obvious distress no pallor no icterus no JVD s1s2 no murmurs lungs clear abdomen soft no organomegaly no edema no cyanosis Lab / Micro Data 01/12/24 06:30 01/12/24 06:30 Labs: Laboratory Results - last 24 hr 01/11/24 21:00: Total Creatine Kinase 493 H 01/11/24 21:05: WBC 15.7 H, RBC 3.75 L, Hgb 11.6 L, Hct 36.9 L, MCV 98.4 H, MCH 30.9, MCHC 31.4 L, RDW Std Deviation 50.4 H, RDW Coeff of Herbert 14.1, Plt Count 241, MPV 10.7, Immature Gran % (Auto) 1.400 H, Neut % (Auto) 73.1 H, Lymph % (Auto) 13.8 L, [place] % (Auto) 9.6, Eos % (Auto) 1.5, Baso % (Auto) 0.6, Absolute Neuts (auto) 11.5 H, Absolute Lymphs (auto) 2.16, Nucleated RBC % 0, Differential Comment SCANNED, Diff Path Review February, Sodium 134 L, Potassium 4.4, Chloride 95 L, Carbon Dioxide 27.0, Anion Gap 12, BUN 84 H, Creatinine 6.91 H, Estim Creat Clear Calc 9.83, Est GFR (MDRD) Af Amer 10 L, Est GFR (MDRD) Non- Af 8 L, BUN/Creatinine Ratio 12.2, Glucose 77, Lactic Acid 1.5, Calcium 8.7, Total Bilirubin 0.40, AST 34, ALT 29, Alkaline Phosphatase 49, Troponin I High Sens 28, B-Natriuretic Peptide 46.9, Total Protein 7.0, Albumin 3.2, Globulin 3.8, Albumin/Globulin Ratio 0.8 L, Lipase 18 01/11/24 21:50: PT 17.4 H, INR 1.4, Urine Color Yellow, Urine Clarity Clear, Urine pH 5.0, Ur Specific Cannon 1.015, Urine Protein 30 H, Urine Glucose (UA) Normal, Urine Ketones 5 H, Urine Occult Blood 50 H, Urine Nitrite Negative, Urine Bilirubin 1 H, Urine Urobilinogen Normal, Ur Leukocyte Esterase 25 H, Urine RBC 0-5 SEEN, Urine WBC 0-5 SEEN, Ur Squamous Epith Cells 0 SEEN, Urine Bacteria RARE, Hyaline Casts 0-5 SEEN, Urine Mucus 1+, Urine Opiates Screen POSITIVE H, Urine Methadone Screen NEGATIVE, Ur Barbiturates Screen NEGATIVE, Ur Phencyclidine Scrn NEGATIVE, Ur Amphetamines Screen NEGATIVE, MDMA (Ecstasy) Screen NEGATIVE, U Benzodiazepines Scrn NEGATIVE, Urine Cocaine Screen NEGATIVE, U Cannabinoids Screen NEGATIVE, Ur Drug Screen Comment , Ethyl Alcohol < 3.0 01/12/24 06:00: POC Glucose 84 01/12/24 06:30: WBC 12.4 H, RBC 3.41 L, Hgb 10.7 L, Hct 34.1 L, MCV 100.0 H, MCH 31.4, MCHC 31.4 L, RDW Std Deviation 52.1 H, RDW Coeff of Herbert 14.1, Plt Count 219, MPV 10.6, Immature Gran % (Auto) 1.200 H, Neut % (Auto) 72.2 H, Lymph % (Auto) 13.5 L, Sarpy % (Auto) 10.6 H, Eos % (Auto) 1.9, Baso % (Auto) 0.6, Absolute Neuts (auto) 9.0 H, Absolute Lymphs (auto) 1.67, Nucleated RBC % 0, Sodium 137, Potassium 4.2, Chloride 100, Carbon Dioxide 27.0, Anion Gap 10, BUN 79 H, Creatinine 5.55 H, Estim Creat Clear Calc 12.23, Est GFR (MDRD) Af Amer 13 L, Est GFR (MDRD) Non-Af 11 L, BUN/Creatinine Ratio 14.2, Glucose 94, Calcium 8.1 L, Phosphorus 5.5 H, Magnesium 2.8 H, Total Bilirubin 0.50, AST 33, ALT 25, Alkaline Phosphatase 48, Total Protein 6.4, Albumin 2.8 L, Globulin 3.6, Albumin/Globulin Ratio 0.8 L, TSH 0.75 Micro: Microbiology 01/11/24 21:05 Mucosa - Nose SARS-CoV-2, Influenza & RSV (PCR) - Final Rhythm Strip Rhythm Strip: Sinus Rhythm Rate: 79 Ectopy: None Imaging Radiology Impression Brain CT 01/11/24 20:28 IMPRESSION: Chronic microvascular ischemic changes. No CT evidence of acute intracranial pathology. Electronically Signed: Wisam Coffman DO at 22:08 EDT , Chest X-Ray 01/11/24 20:53 IMPRESSION: Left basilar pulmonary opacity may be atelectasis or pneumonia. Electronically Signed: Wisam Coffman DO at 21:18 EDT , Renal Ultrasound 01/11/24 23:13 IMPRESSION: No acute abnormalities. Electronically Signed: Wisam Coffman DO at 23:57 EDT ,
[2024-01-12 11:36] LABS: Bedside Glucose 97 mg/dL (74-106)
[2024-01-12] MEDS: Acetaminophen 325 MG Tablet 650 MG PO (13:24)
[2024-01-12 14:20] LABS: Hemoglobin A1c 7.5 % (3.8-5.6)
[2024-01-12] MEDS: oxyCODONE 5 MG Tablet PO (14:32)
--- NOTE | 2024-01-12 14:44 | CASEMGMT ---
RN CM Assessment Face to Face with patient for initial transition planning/care coordination assessment. Pt is displaying some minor confusion at this time and was unable to answer this RN CM questions accordingly. The pt appears to need some rest at this time. Pt states that it is OK to contact the daughter or the for assessment. Pt called at this time, no answer. Pt daughter called at this time and agrees to answering this RN CM questions for initial assessment. RN CM introduced self and role at [facility] [place], pt daughter voices understanding. Care providers, pharmacy, and demographics verified. Admitting dx: Severe Acute Renal Failure with Hypotension PCP: Rossy Specialists: Isamar Little Preferred Pharmacy: [facility] Insurance: [employer] Prescription Benefit: Yes LNOK: Brook Muhammad (W), Liss Bernardo (KATIE) Living Arrangements: Pt lives with his in a single story home with a flat entrance. Pt daughter states there is 1 step to manage between the split levels in the home. ADLs/IADLs: Pt daughter states that the pt used to be ind. Pt daughter states that the helps out as much as she can but she is small and is unable to help as much as he needs. Transportation: Pt drives. Pt, pt , and pt daughter are all uncomfortable with the pt driving currently. DME: Rollator. BP Cuff. Motorized scooter. Shower GB. Pt is 94% on 2L currently and may qualify for home Oxygen. A verbal list of Local DME providers given to the pt daughter at this time. The pt daughter states the pt lives in [place] and chooses [facility] for potential O2 requirements. HHC/SNF: Denies history. The pt daughter is open to the idea of HHC or SNF after DC. Plan: TBD, HHC vs SNF. Pt 6-Click is 12. PT/OT eval pending. CM and SW to follow therapy and pt progression in the hospital for safe DC from [facility] [place]. Susana Garcia RN, CM
[2024-01-12] MEDS: Insulin Lispro 100 UNIT/ML INSULN.PEN SC ×2 (16:34→21:21)
[2024-01-12 17:19] LABS: Bedside Glucose 184 mg/dL (74-106)
[2024-01-12] MEDS: Atorvastatin Calcium 10 MG Tablet 5 MG PO (21:19)
[2024-01-12] MEDS: MELATONIN 3 MG TABLET PO (21:29)
[2024-01-12 22:00] LABS: Bedside Glucose 160 mg/dL (74-106)
[2024-01-12 22:31] LABS: Protein, Urine (Random) 101.9 mg/dL (<11.9); Protein:Creat Ratio 1048 mg/g CRE (0-200)
[2024-01-13] VITALS (10 sets, daily range): BP systolic 125–152; BP diastolic 82–105; PULSE 75–85; RESP 18; TEMP 36.2–37.2; O2SAT 83–98; BMI 25.9
[2024-01-13] MEDS: 0.9% Normal Saline (1000mL) 1,000 ML 150 ML IV (04:13)
[2024-01-13 06:03] LABS: Anion Gap 7 (5-15); BUN 53 mg/dL (7-18); BUN/Creat Ratio 21.6 RATIO (10-20); Calcium,Total 8.5 mg/dL (8.5-10.1); Chloride 108 mmol/L (98-107); Creatinine, Serum 2.45 mg/dL (0.70-1.30); EST Glomerular Filtration Rate 27 mL/min (>60); Est Glom Filt Rate - Afr Amer 33 mL/min (>60); Estimated Creatinine Clearance 27.71 ml/min; Glucose 130 mg/dL (74-106); Potassium 4.5 mmol/L (3.5-5.1); Sodium Level 141 mmol/L (136-145)
[2024-01-13 06:47] LABS: Bedside Glucose 125 mg/dL (74-106)
--- NOTE | 2024-01-13 07:40 | PN.HOSP_ITS ---
Reason for Visit Reason for Visit: Diagnoses Polyneuropathy, unspecified (01/11/24) Metabolic encephalopathy (01/11/24) Acute kidney failure, unspecified (01/11/24) Repeated falls (01/11/24) Weakness (01/11/24) Adverse effect of unspecified drugs, medicaments and biological substances, initial encounter (01/11/24) Subjective Subjective Feeling better. Objective Data Objective Data Vital Signs: Vital Signs Temp Pulse Resp BP Pulse Ox O2 Del Method O2 Flow Rate 37.1 C 79 18 147/84 H 93 Room Air 2 01/13/24 06:29 01/13/24 06:29 01/13/24 06:29 01/13/24 06:29 01/13/24 06:29 01/13/24 06:29 01/13/24 02:42 Oxygen Flow Rate (L/min) 2 Oxygen Delivery Method Room Air Weight: 86.7 kg Body Mass Index (BMI) 25.9 Intake & Output: Intake and Output for Last 24 Hours 01/11/24 01/12/24 01/13/24 23:59 23:59 23:59 Intake Total 700 / 700 4542.5 / 4542.5 1000 / 1000 Output Total 3400 / 3400 450 / 450 Balance 700 / 700 1142.5 / 1142.5 550 / 550 Lab / Micro Data 01/12/24 06:30 01/13/24 05:07 Labs: Laboratory Results - last 24 hr 01/11/24 21:50: U Random Total Protein 101.9 H, Urine Creatinine 97.20, Prot ein/Creatinin Ratio 1048 H 01/12/24 06:30: Sodium 137, Potassium 4.2, Chloride 100, Carbon Dioxide 27.0, Anion Gap 10, BUN 79 H, Creatinine 5.55 H, Estim Creat Clear Calc 12.23, Est GFR (MDRD) Af Amer 13 L, Est GFR (MDRD) Non-Af 11 L, BUN/Creatinine Ratio 14.2, Glucose 94, Hemoglobin A1c 7.5 H, Calcium 8.1 L, Phosphorus 5.5 H, Magnesium 2.8 H, Total Bilirubin 0.50, AST 33, ALT 25, Alkaline Phosphatase 48, Total Protein 6.4, Albumin 2.8 L, Globulin 3.6, Albumin/Globulin Ratio 0.8 L, TSH 0.75 01/12/24 11:09: POC Glucose 97 01/12/24 16:13: POC Glucose 184 H 01/12/24 21:16: POC Glucose 160 H 01/12/24 21:50: U Random Total Protein Cancelled, Urine Creatinine Cancelled, Protein/Creatinin Ratio Cancelled 01/13/24 05:07: Sodium 141, Potassium 4.5, Chloride 108 H, Carbon Dioxide 26.0, Anion Gap 7, BUN 53 H, Creatinine 2.45 H, Estim Creat Clear Calc 27.71, Est GFR (MDRD) Af Amer 33 L, Est GFR (MDRD) Non-Af 27 L, BUN/Creatinine Ratio 21.6 H, Glucose 130 H, Calcium 8.5 01/13/24 06:26: POC Glucose 125 H Micro: Microbiology 01/11/24 21:05 Mucosa - Nose SARS-CoV-2, Influenza & RSV (PCR) - Final Rhythm Strip Rhythm Strip: Sinus Rhythm Rate: 79 Ectopy: None Physical Exam Const alert and no apparent distress HEENT head/scalp atraumatic and moist oral mucous membranes Resp normal respiratory effort, no retractions, no use of accessory muscles and clear to auscultation bilaterally Cardio regular rate, regular rhythm, S1 normal heart sound and S2 normal heart sound GI normal to inspection, nondistended, normoactive bowel sounds, soft to palpation, non-tender and non-distended Neuro Neuro Narrative: no further myoclonus. Assessment & Plan Assessment/Plan (1) Acute renal failure: QUALIFIERS: Acute renal failure type: unspecified Qualified Code(s): N17.9 - Acute kidney failure, unspecified (2) Metabolic encephalopathy: PLAN: Plan BRENDON * Creatinine on presention was 6.91. Currently improved to 2.45 * Furosemide held (I don't see an ACEi on home list) * Matt catheter placed * renal US normal * nephrology following. * will need to follow up vascular surgery for angiogram to eval for FE. encephalopathy * resolved * likely multifactorial from BRENDON and gabapentin. * hold gabapentin. Myoclonus * resolved. * suspect due to gabapentin in BRENDON. * monitor. * continue to hold gabapentin. see how kidney function responds before resuming. Chronic conditions: * Hyperlipidemia - Resume statin and check lipid profile. * Overweight; with BMI of 26.6 this admission - Weight loss will be recommended. Check TSH. * Diabetes mellitus type 2; of unknown control - ADA/renal diet. Fingerstick blood sugars before every meal and at bedtime + scale insulin. Check hemoglobin A1c to objectively evaluate quality of diabetic control. * History of paroxysmal atrial fibrillation; on apixaban - Continue apixaban at half of his previous dose due to his new severe acute renal failure. * History of chronic diastolic CHF; with preserved LVEF - Stable with patient clinically dry at time of admission. * peripheral arterial disease - Noted. DVT prophylaxis - not indicated as already on apixaban. Charges/Coding Visit Charges Inpatient E&M: 45406 Subs Hosp L2
[2024-01-13] MEDS: Senna/Docusate Sodium 1 Tablet 2 TABLET PO (08:46)
[2024-01-13] MEDS: Acyclovir 200 MG Capsule 400 MG PO (08:47)
[2024-01-13] MEDS: APIXABAN 2.5 MG TABLET (WCH) PO ×2 (08:47→23:28)
--- NOTE | 2024-01-13 09:10 | CASEMGMT ---
Discharge Planning A list of?SNF providers including quality and resource use data and consistent with the patient's preferred geographic region, medical needs, and insurance network was created in [facility] Guide.? This list was provided to the SW. Kamryn Sheehan Discharge Planning Asst.
[2024-01-13] MEDS: Insulin Lispro 100 UNIT/ML INSULN.PEN SC (11:29)
[2024-01-13 11:47] LABS: Bedside Glucose 178 mg/dL (74-106)
--- NOTE | 2024-01-13 12:08 | CASEMGMT ---
Patient did not do well with therapy and would benefit from longterm facility for rehab. SW attempted to call patient's , but there was no answer. SW will check back again later. Mariely DUVALL
--- NOTE | 2024-01-13 13:14 | CASEMGMT ---
SW spoke with patient and his Brook. SW introduced self and role at [facility]. Brook said the doctor told them patient should go somewhere for rehab. SW explained SW will assist. SW provided Brook with a list of [facility] facility providers including quality and resource use data and consistent with patient?s preferred geographic region, medical needs, and insurance network were provided from the [employer] Guide. SW explained to patient and Brook that they need to review the list and pick 3-4 facilities they would be okay with and SW will take care of contacting the facilities for them. MEME told Brook SW will check back. Mariely Juárez INJECTION MOLDING PROCESS TECHNICIAN ELOINA
[2024-01-13] MEDS: oxyCODONE 5 MG Tablet PO ×2 (13:30→20:31)
[2024-01-13] MEDS: Acetaminophen 325 MG Tablet 650 MG PO ×2 (13:30→23:27)
--- NOTE | 2024-01-13 13:55 | CASEMGMT ---
SW spoke with patient. his granddaughter, and . Their senior care choices were [facility] and [facility]. SW let them know referrals will be sent and SW will let them know which facilities accept patient. Mariely DUVALL
--- NOTE | 2024-01-13 14:11 | CASEMGMT ---
Addendum entered by Kamryn Sheehan 01/13/24 16:15: Per , [facility] is foc. [facility] asked to begin precert and [facility] asked to cancel referral. Kamryn Sheehan, Discharge Planning Asst. Original Note: Discharge Planning Referral sent via [facility] to [facility] and [facility]. Kamryn Sheehan, Discharge Planning Asst.
[2024-01-13 15:17] LABS: Pathologist Review Reviewed
--- NOTE | 2024-01-13 15:30 | PCM.PN.REN ---
Subjective Subjective No new complaints Objective Data Objective Data Vital Signs: Vital Signs Temp Pulse Resp BP Pulse Ox O2 Del Method O2 Flow Rate 97.9 F 85 18 152/87 H 93 Room Air 2 01/13/24 08:45 01/13/24 08:45 01/13/24 08:45 01/13/24 08:45 01/13/24 10:31 01/13/24 08:45 01/13/24 02:42 Oxygen Flow Rate (L/min) 2 Oxygen Delivery Method Room Air Weight: 86.7 kg Body Mass Index (BMI) 25.9 Intake & Output: Intake and Output for Last 24 Hours 01/11/24 01/12/24 01/13/24 23:59 23:59 23:59 Intake Total 700 / 700 4542.5 / 4542.5 2217.5 / 2217.5 Output Total 3400 / 3400 1425 / 1425 Balance 700 / 700 1142.5 / 1142.5 792.5 / 792.5 Lab / Micro Data 01/12/24 06:30 01/13/24 05:07 Labs: Laboratory Results - last 24 hr 01/11/24 21:05: Diff Path Review Reviewed 01/11/24 21:50: U Random Total Protein 101.9 H, Urine Creatinine 97.20, Protein/Creatinin Ratio 1048 H 01/12/24 16:13: POC Glucose 184 H 01/12/24 21:16: POC Glucose 160 H 01/12/24 21:50: U Random Total Protein Cancelled, Urine Creatinine Cancelled, Protein/Creatinin Ratio Cancelled 01/13/24 05:07: Sodium 141, Potassium 4.5, Chloride 108 H, Carbon Dioxide 26.0, Anion Gap 7, BUN 53 H, Creatinine 2.45 H, Estim Creat Clear Calc 27.71, Est GFR (MDRD) Af Amer 33 L, Est GFR (MDRD) Non-Af 27 L, BUN/Creatinine Ratio 21.6 H, Glucose 130 H, Calcium 8.5 01/13/24 06:26: POC Glucose 125 H 01/13/24 11:20: POC Glucose 178 H Micro: Microbiology 01/11/24 21:05 Mucosa - Nose SARS-CoV-2, Influenza & RSV (PCR) - Final Rhythm Strip Rhythm Strip: Sinus Rhythm Rate: 79 Ectopy: None Physical Exam Narrative Alert awake oriented x 3 no obvious distress no pallor no icterus no JVD s1s2 no murmurs lungs clear abdomen soft no organomegaly no edema no cyanosis Assessment & Plan Assessment/Plan (1) BRENDON (acute kidney injury): PLAN: Baseline creatinine in August 2023 at 0.9. When he was admitted here for congestive heart failure, creatinine was around 1.4 and he came in with a creatinine of 6.9. significantly decreased blood pressure. Better with IV fluids. Renal ultrasound without any hydronephrosis Urine analysis looks like to be benign microscopic hematuria. Urine protein creatinine ratio about 1 g Extensive atherosclerotic vascular disease in the aorta and branches. CT abdomen reviewed. He was scheduled to get a CT angiogram by vascular surgery. We will need that eventually once his kidney function improves to rule out renal artery stenosis. Lisinopril can theoretically cause acute renal failure in the setting of bilateral renal artery stenosis. Continue to hold lisinopril. Creatinine significantly better. No further workup needed at this point.
[2024-01-13] MEDS: Ondansetron ODT 4 MG Tablet PO (15:57)
--- NOTE | 2024-01-13 16:12 | CASEMGMT ---
MEME spoke with patient's granddaughter and . SW let them know [facility] accepted, but [facility] has not gotten back to [facility] yet. Family is okay with [facility]. MEME asked Kamryn to tell [facility] to go ahead and start pre-cert. Plan: d/c to [facility] pending pre-cert. Mariely DUVALL
[2024-01-13 16:45] LABS: Bedside Glucose 147 mg/dL (74-106)
[2024-01-13] MEDS: MELATONIN 3 MG TABLET PO (23:27)
[2024-01-13] MEDS: Atorvastatin Calcium 10 MG Tablet 5 MG PO (23:28)
[2024-01-13] MEDS: Menthol/Lanolin/Calamine/Znox 113 GM Tube 1 APPLIC TOPICAL (23:32)
[2024-01-13 23:51] LABS: Bedside Glucose 129 mg/dL (74-106)
[2024-01-14] MEDS: Ondansetron ODT 4 MG Tablet PO (01:31)
[2024-01-14 03:53] VITALS: BP 166/74; PULSE 73; RESP 18; TEMP 36.3; O2SAT 95
[2024-01-14] MEDS: proMETHazine 25 MG Tablet PO (05:22)
[2024-01-14 06:00] VITALS: BMI 25.9
[2024-01-14 06:41] LABS: Bedside Glucose 132 mg/dL (74-106)
--- NOTE | 2024-01-14 07:51 | PN.HOSP_ITS ---
Reason for Visit Reason for Visit: Diagnoses Polyneuropathy, unspecified (01/11/24) Metabolic encephalopathy (01/11/24) Acute kidney failure, unspecified (01/11/24) Repeated falls (01/11/24) Weakness (01/11/24) Adverse effect of unspecified drugs, medicaments and biological substances, initial encounter (01/11/24) Subjective Subjective Feels well. No events overnight. Objective Data Objective Data Vital Signs: Vital Signs Temp Pulse Resp BP Pulse Ox O2 Del Method O2 Flow Rate 36.3 C L 73 18 166/74 H 95 Room Air 2 01/14/24 03:53 01/14/24 03:53 01/14/24 03:53 01/14/24 03:53 01/14/24 03:53 01/14/24 03:53 01/13/24 02:42 Oxygen Flow Rate (L/min) 2 Oxygen Delivery Method Room Air Weight: 86.9 kg Body Mass Index (BMI) 25.9 Intake & Output: Intake and Output for Last 24 Hours 01/12/24 01/13/24 01/14/24 23:59 23:59 23:59 Intake Total 4542.5 / 4542.5 2717.5 / 2717.5 Output Total 3400 / 3400 2425 / 2425 650 / 650 Balance 1142.5 / 1142.5 292.5 / 292.5 -650 / -650 Lab / Micro Data 01/12/24 06:30 01/14/24 08:15 Labs: Laboratory Results - last 24 hr 01/11/24 21:05: Diff Path Review Reviewed 01/13/24 11:20: POC Glucose 178 H 01/13/24 16:24: POC Glucose 147 H 01/13/24 23:22: POC Glucose 129 H 01/14/24 06:22: POC Glucose 132 H Micro: Microbiology 01/11/24 21:50 Blood Culture (Wb) - Anticubital Left Blood Culture - Preliminary No growth in 48 hours. 01/11/24 21:00 Blood Culture (Wb) - Anticubital Left Blood Culture - Preliminary No growth in 48 hours. 01/11/24 21:05 Mucosa - Nose SARS-CoV-2, Influenza & RSV (PCR) - Final Rhythm Strip Rhythm Strip: Sinus Rhythm Rate: 79 Ectopy: None Physical Exam Const alert and no apparent distress HEENT head/scalp atraumatic and moist oral mucous membranes Resp normal respiratory effort, no retractions, no use of accessory muscles and clear to auscultation bilaterally Cardio regular rate, regular rhythm, S1 normal heart sound and S2 normal heart sound GI normal to inspection, nondistended, normoactive bowel sounds, soft to palpation, non-tender and non-distended Neuro Sensorium / Orientation: awake and alert Assessment & Plan Assessment/Plan (1) Acute renal failure: QUALIFIERS: Acute renal failure type: unspecified Qualified Code(s): N17.9 - Acute kidney failure, unspecified (2) Metabolic encephalopathy: PLAN: Plan BRENDON * Creatinine on presentation was 6.91. Currently improved to 1.5 * Furosemide held (I don't see an ACEi on home list) * Matt catheter placed * renal US normal * nephrology following. * will need to follow up vascular surgery for angiogram to eval for FE. encephalopathy * resolved * likely multifactorial from BRENDON and gabapentin. * hold gabapentin. Myoclonus * resolved. * suspect due to gabapentin in BRENDON. * monitor. * As the kidney function has improved, will resume gabapentin. Chronic conditions: * Hyperlipidemia - Resume statin and check lipid profile. * Overweight; with BMI of 26.6 this admission - Weight loss will be recommended. Check TSH. * Diabetes mellitus type 2; of unknown control - ADA/renal diet. Fingerstick blood sugars before every meal and at bedtime + scale insulin. Check hemoglobin A1c to objectively evaluate quality of diabetic control. * History of paroxysmal atrial fibrillation; on apixaban - Continue apixaban at half of his previous dose due to his new severe acute renal failure. * History of chronic diastolic CHF; with preserved LVEF - Stable with patient clinically dry at time of admission. * peripheral arterial disease - Noted. DVT prophylaxis - not indicated as already on apixaban. Disposition: to SNF ([facility]) pending approval. Charges/Coding Visit Charges Inpatient E&M: 10775 Subs Hosp L1
[2024-01-14] MEDS: oxyCODONE 5 MG Tablet PO (07:58)
[2024-01-14] MEDS: Acetaminophen 325 MG Tablet 650 MG PO (07:59)
[2024-01-14 09:00] VITALS: O2SAT 92
[2024-01-14 09:14] VITALS: BP 160/76; PULSE 67; RESP 18; TEMP 36.4; O2SAT 96
[2024-01-14] MEDS: Menthol/Lanolin/Calamine/Znox 113 GM Tube 1 APPLIC TOPICAL ×2 (09:15→22:33)
[2024-01-14] MEDS: APIXABAN 2.5 MG TABLET (WCH) PO ×2 (09:16→22:33)
[2024-01-14 09:48] LABS: Anion Gap 5 (5-15); BUN 30 mg/dL (7-18); BUN/Creat Ratio 20.3 RATIO (10-20); Chloride 110 mmol/L (98-107); Creatinine, Serum 1.48 mg/dL (0.70-1.30); EST Glomerular Filtration Rate 49 mL/min (>60); Est Glom Filt Rate - Afr Amer 59 mL/min (>60); Estimated Creatinine Clearance 45.88 ml/min; Glucose 134 mg/dL (74-106); Potassium 4.1 mmol/L (3.5-5.1); Sodium Level 141 mmol/L (136-145)
[2024-01-14] MEDS: Insulin Lispro 100 UNIT/ML INSULN.PEN SC (10:59)
[2024-01-14 11:20] LABS: Bedside Glucose 156 mg/dL (74-106)
[2024-01-14] MEDS: Gabapentin 400 MG Capsule PO ×2 (13:09→16:30)
[2024-01-14 15:14] VITALS: BP 158/71; PULSE 62; RESP 18; TEMP 36.3; O2SAT 94
[2024-01-14 17:06] LABS: Bedside Glucose 136 mg/dL (74-106)
--- NOTE | 2024-01-14 19:25 | PCM.PN.REN ---
Subjective Subjective Following for BRENDON and hypertension. Patient denies chest pain, shortness of breath, or nausea. Objective Data Objective Data Vital Signs: Vital Signs Temp Pulse Resp BP Pulse Ox O2 Del Method O2 Flow Rate 97.4 F L 62 18 158/71 H 94 Room Air 2 01/14/24 15:14 01/14/24 15:14 01/14/24 15:14 01/14/24 15:14 01/14/24 15:14 01/14/24 15:14 01/13/24 02:42 Oxygen Flow Rate (L/min) 2 Oxygen Delivery Method Room Air Weight: 86.9 kg Body Mass Index (BMI) 25.9 Intake & Output: Intake and Output for Last 24 Hours 01/12/24 01/13/24 01/14/24 23:59 23:59 23:59 Intake Total 4542.5 / 4542.5 2717.5 / 2717.5 800 / 800 Output Total 3400 / 3400 2425 / 2425 850 / 850 Balance 1142.5 / 1142.5 292.5 / 292.5 -50 / -50 Lab / Micro Data 01/12/24 06:30 01/14/24 08:15 Labs: Laboratory Results - last 24 hr 01/13/24 23:22: POC Glucose 129 H 01/14/24 06:22: POC Glucose 132 H 01/14/24 08:15: Sodium 141, Potassium 4.1, Chloride 110 H, Carbon Dioxide 26.0, Anion Gap 5, BUN 30 H, Creatinine 1.48 H, Estim Creat Clear Calc 45.88, Est GFR (MDRD) Af Amer 59 L, Est GFR (MDRD) Non-Af 49 L, BUN/Creatinine Ratio 20.3 H, Glucose 134 H, Calcium 9.0 01/14/24 10:59: POC Glucose 156 H 01/14/24 16:29: POC Glucose 136 H Micro: Microbiology 01/11/24 21:50 Blood Culture (Wb) - Anticubital Left Blood Culture - Preliminary No growth in 48 hours. 01/11/24 21:00 Blood Culture (Wb) - Anticubital Left Blood Culture - Preliminary No growth in 48 hours. 01/11/24 21:05 Mucosa - Nose SARS-CoV-2, Influenza & RSV (PCR) - Final Rhythm Strip Rhythm Strip: Sinus Rhythm Rate: 79 Ectopy: None Physical Exam Narrative Alert awake oriented x 3 no obvious distress no pallor no icterus no JVD s1s2 no murmurs lungs clear abdomen soft no organomegaly no edema no cyanosis Assessment & Plan Assessment/Plan (1) BRENDON (acute kidney injury): PLAN: Baseline creatinine in August 2023 at 0.9. When he was admitted here for congestive heart failure, creatinine was around 1.4 and he came in with a creatinine of 6.9. Patient presented with significantly decreased blood pressure. BP and renal function has improved with volume expansion. Renal ultrasound without any hydronephrosis Urinalysis was benign with microscopic hematuria. Urine protein creatinine ratio about 1 g. The patient has extensive atherosclerotic vascular disease in the aorta and branches. CT abdomen reviewed. He was scheduled to get a CT angiogram by vascular surgery. We will need that eventually once his kidney function improves to rule out renal artery stenosis. Lisinopril can theoretically cause acute renal failure in the setting of bilateral renal artery stenosis. Continue to hold lisinopril. Creatinine significantly better. Serum creatinine has decreased from 6.91 mg/dL on 01/11/2024 down to 1.48 mg/dL today on 01/14/2024. No further workup needed at this point. Will continue to monitor his trajectory of renal function. (2) HTN (hypertension): PLAN: Patient came in with BP of 86/73 on 01/11/2024. The patient was on metoprolol tartrate 25 mg twice a day and furosemide 20 mg once per day. He has not been taking lisinopril for about 2 weeks prior to presentation. Currently, he is off of all antihypertensives. SBP has been consistently above 140 mmHg in the last 48 hours. I will start low-dose amlodipine. Will monitor BP. Once bilateral renal artery stenosis is ruled out, we should consider restarting RAAS clementina.
[2024-01-14 20:30] VITALS: BP 168/71; PULSE 62; RESP 18; TEMP 37.2; O2SAT 92
[2024-01-14] MEDS: Atorvastatin Calcium 10 MG Tablet 5 MG PO (22:33)
[2024-01-14 23:01] LABS: Bedside Glucose 124 mg/dL (74-106)
[2024-01-15 02:30] VITALS: BP 151/55; PULSE 60; RESP 18; TEMP 37; O2SAT 95
[2024-01-15 06:36] LABS: Bedside Glucose 124 mg/dL (74-106)
[2024-01-15 07:46] LABS: Albumin, Serum 2.9 g/dL (3.2-5.0); BUN 25 mg/dL (7-18); Chloride 111 mmol/L (98-107); Creatinine, Serum 1.25 mg/dL (0.70-1.30); EST Glomerular Filtration Rate 59 mL/min (>60); Est Glom Filt Rate - Afr Amer 72 mL/min (>60); Estimated Creatinine Clearance 54.32 ml/min; Glucose 119 mg/dL (74-106); Phosphorus 2.2 mg/dL (2.5-4.9); Potassium 3.8 mmol/L (3.5-5.1); Sodium Level 142 mmol/L (136-145)
--- NOTE | 2024-01-15 07:50 | PN.HOSP_ITS ---
Reason for Visit Reason for Visit: Diagnoses Polyneuropathy, unspecified (01/11/24) Metabolic encephalopathy (01/11/24) Essential (primary) hypertension (01/11/24) Acute kidney failure, unspecified (01/11/24) Repeated falls (01/11/24) Weakness (01/11/24) Adverse effect of unspecified drugs, medicaments and biological substances, initial encounter (01/11/24) Subjective Subjective Feels welll. No further myoclonus. Objective Data Objective Data Vital Signs: Vital Signs Temp Pulse Resp BP Pulse Ox O2 Del Method O2 Flow Rate 37.0 C 60 18 151/55 H 95 Room Air 2 01/15/24 02:30 01/15/24 02:30 01/15/24 02:30 01/15/24 02:30 01/15/24 02:30 01/15/24 02:30 01/13/24 02:42 Oxygen Flow Rate (L/min) 2 Oxygen Delivery Method Room Air Weight: 86.9 kg Body Mass Index (BMI) 25.9 Intake & Output: Intake and Output for Last 24 Hours 01/13/24 01/14/24 01/15/24 23:59 23:59 23:59 Intake Total 2717.5 / 2717.5 1000 / 1000 200 / 200 Output Total 2425 / 2425 1150 / 1150 500 / 500 Balance 292.5 / 292.5 -150 / -150 -300 / -300 Lab / Micro Data 01/12/24 06:30 01/15/24 06:59 Labs: Laboratory Results - last 24 hr 01/14/24 08:15: Sodium 141, Potassium 4.1, Chloride 110 H, Carbon Dioxide 26.0, Anion Gap 5, BUN 30 H, Creatinine 1.48 H, Estim Creat Clear Calc 45.88, Est GFR (MDRD) Af Amer 59 L, Est GFR (MDRD) Non-Af 49 L, BUN/Creatinine Ratio 20.3 H, Glucose 134 H, Calcium 9.0 01/14/24 10:59: POC Glucose 156 H 01/14/24 16:29: POC Glucose 136 H 01/14/24 22:35: POC Glucose 124 H 01/15/24 06:18: POC Glucose 124 H 01/15/24 06:59: Sodium 142, Potassium 3.8, Chloride 111 H, Carbon Dioxide 24.0, BUN 25 H, Creatinine 1.25, Estim Creat Clear Calc 54.32, Est GFR (MDRD) Af Amer 72, Est GFR (MDRD) Non-Af 59 L, BUN/Creatinine Ratio 20.0, Glucose 119 H, Calcium 9.0, Phosphorus 2.2 L, Albumin 2.9 L Micro: Microbiology 01/11/24 21:50 Blood Culture (Wb) - Anticubital Left Blood Culture - Preliminary No growth in 48 hours. 01/11/24 21:00 Blood Culture (Wb) - Anticubital Left Blood Culture - Preliminary No growth in 48 hours. 01/11/24 21:05 Mucosa - Nose SARS-CoV-2, Influenza & RSV (PCR) - Final Rhythm Strip Rhythm Strip: Sinus Rhythm Rate: 79 Ectopy: None Physical Exam Const alert and no apparent distress Constitutional Narrative: up in chair eating breakfast. HEENT head/scalp atraumatic and moist oral mucous membranes Resp normal respiratory effort and no retractions Neuro moves all extremities Sensorium / Orientation: awake and alert Psych affect normal Assessment & Plan Assessment/Plan (1) Acute renal failure: QUALIFIERS: Acute renal failure type: unspecified Qualified Code(s): N17.9 - Acute kidney failure, unspecified (2) Metabolic encephalopathy: PLAN: Plan BRENDON * Creatinine on presentation was 6.91. Currently improved to 1.25 * Furosemide held (I don't see an ACEi on home list) * Matt catheter placed * renal US normal * nephrology following. * will need to follow up vascular surgery for angiogram to eval for FE. encephalopathy * resolved * likely multifactorial from BRENDON and gabapentin. * hold gabapentin. Myoclonus * resolved. * suspect due to gabapentin in BRENDON. * monitor. * As the kidney function has improved, will resume gabapentin. Chronic conditions: * Hyperlipidemia - Resume statin and check lipid profile. * Overweight; with BMI of 26.6 this admission - Weight loss will be recommended. Check TSH. * Diabetes mellitus type 2; of unknown control - ADA/renal diet. Fingerstick blood sugars before every meal and at bedtime + scale insulin. Check hemoglobin A1c to objectively evaluate quality of diabetic control. * History of paroxysmal atrial fibrillation; on apixaban - Continue apixaban at half of his previous dose due to his new severe acute renal failure. * History of chronic diastolic CHF; with preserved LVEF - Stable with patient clinically dry at time of admission. * peripheral arterial disease - Noted. DVT prophylaxis - not indicated as already on apixaban. Disposition: to SNF ([facility]) pending approval. Charges/Coding Visit Charges Inpatient E&M: 15156 Subs Hosp L2
[2024-01-15] MEDS: Gabapentin 400 MG Capsule PO ×3 (07:58→16:49)
[2024-01-15] MEDS: oxyCODONE 5 MG Tablet PO (07:58)
[2024-01-15] MEDS: Acetaminophen 325 MG Tablet 650 MG PO (07:58)
[2024-01-15 09:36] VITALS: BP 158/87; PULSE 69; RESP 18; TEMP 36.4; O2SAT 96
[2024-01-15] MEDS: Menthol/Lanolin/Calamine/Znox 113 GM Tube 1 APPLIC TOPICAL (09:38)
[2024-01-15] MEDS: Acyclovir 200 MG Capsule 400 MG PO (09:38)
[2024-01-15] MEDS: APIXABAN 2.5 MG TABLET (WCH) PO ×2 (09:39→21:26)
[2024-01-15] MEDS: amLODIPine 2.5 MG Tablet PO (09:41)
[2024-01-15] MEDS: Insulin Lispro 100 UNIT/ML INSULN.PEN SC ×2 (11:14→16:49)
[2024-01-15 12:02] LABS: Bedside Glucose 173 mg/dL (74-106)
[2024-01-15 15:16] VITALS: BP 134/74; PULSE 80; RESP 18; TEMP 36.3; O2SAT 95
[2024-01-15 16:53] LABS: Bedside Glucose 170 mg/dL (74-106)
[2024-01-15 21:22] VITALS: BP 150/77; PULSE 64; RESP 16; TEMP 36.9; O2SAT 97
[2024-01-15] MEDS: Atorvastatin Calcium 10 MG Tablet 5 MG PO (21:26)
[2024-01-15] MEDS: 0.9% Saline Lock 10 ML Syringe IV (21:26)
[2024-01-15 23:17] LABS: Bedside Glucose 127 mg/dL (74-106)
[2024-01-16 02:28] VITALS: BMI 24.8
[2024-01-16 03:08] VITALS: BP 160/61; PULSE 62; RESP 16; TEMP 36.8; O2SAT 97
[2024-01-16 07:24] LABS: Bedside Glucose 143 mg/dL (74-106)
--- NOTE | 2024-01-16 07:54 | PN.HOSP_ITS ---
Reason for Visit Reason for Visit: Diagnoses Polyneuropathy, unspecified (01/11/24) Metabolic encephalopathy (01/11/24) Essential (primary) hypertension (01/11/24) Acute kidney failure, unspecified (01/11/24) Repeated falls (01/11/24) Weakness (01/11/24) Adverse effect of unspecified drugs, medicaments and biological substances, initial encounter (01/11/24) Subjective Subjective Feels well. Catheter dc'd this AM. Objective Data Objective Data Vital Signs: Vital Signs Temp Pulse Resp BP Pulse Ox O2 Del Method O2 Flow Rate 36.8 C 62 16 160/61 H 97 Room Air 2 01/16/24 03:08 01/16/24 03:08 01/16/24 03:08 01/16/24 03:08 01/16/24 03:08 01/16/24 03:15 01/13/24 02:42 Oxygen Flow Rate (L/min) 2 Oxygen Delivery Method Room Air Weight: 83.1 kg Body Mass Index (BMI) 24.8 Intake & Output: Intake and Output for Last 24 Hours 01/14/24 01/15/24 01/16/24 23:59 23:59 23:59 Intake Total 1000 / 1000 1200 / 1200 Output Total 1150 / 1150 1825 / 1825 0 / 0 Balance -150 / -150 -625 / -625 0 / 0 Lab / Micro Data 01/12/24 06:30 01/15/24 06:59 Labs: Laboratory Results - last 24 hr 01/15/24 11:13: POC Glucose 173 H 01/15/24 16:28: POC Glucose 170 H 01/15/24 21:24: POC Glucose 127 H 01/16/24 06:50: POC Glucose 143 H Micro: Microbiology 01/11/24 21:50 Blood Culture (Wb) - Anticubital Left Blood Culture - Prel iminary No growth in 48 hours. 01/11/24 21:00 Blood Culture (Wb) - Anticubital Left Blood Culture - Preliminary No growth in 48 hours. 01/11/24 21:05 Mucosa - Nose SARS-CoV-2, Influenza & RSV (PCR) - Final Rhythm Strip Rhythm Strip: Sinus Rhythm Rate: 79 Ectopy: None Physical Exam Const alert and no apparent distress HEENT head/scalp atraumatic and moist oral mucous membranes Psych affect normal Assessment & Plan Assessment/Plan (1) Acute renal failure: QUALIFIERS: Acute renal failure type: unspecified Qualified Code(s): N17.9 - Acute kidney failure, unspecified (2) Metabolic encephalopathy: PLAN: Plan BRENDON * Creatinine on presentation was 6.91. Currently improved to 1.25 * Furosemide held (I don't see an ACEi on home list) * Matt catheter placed * renal US normal * nephrology following. * will need to follow up vascular surgery for angiogram to eval for FE. encephalopathy * resolved * likely multifactorial from BRENDON and gabapentin. * hold gabapentin. Myoclonus * resolved. * suspect due to gabapentin in BRENDON. * monitor. * As the kidney function has improved, will resume gabapentin. Chronic conditions: * Hyperlipidemia - Resume statin and check lipid profile. * Overweight; with BMI of 26.6 this admission - Weight loss will be recommended. Check TSH. * Diabetes mellitus type 2; of unknown control - ADA/renal diet. Fingerstick blood sugars before every meal and at bedtime + scale insulin. Check hemoglobin A1c to objectively evaluate quality of diabetic control. * History of paroxysmal atrial fibrillation; on apixaban - Continue apixaban at half of his previous dose due to his new severe acute renal failure. * History of chronic diastolic CHF; with preserved LVEF - Stable with patient clinically dry at time of admission. * peripheral arterial disease - Noted. DVT prophylaxis - not indicated as already on apixaban. Disposition: to SNF ([facility]) pending approval. Charges/Coding Visit Charges Inpatient E&M: 26410 [facility] Hosp L1
[2024-01-16 08:17] VITALS: O2SAT 93
--- NOTE | 2024-01-16 08:55 | CASEMGMT ---
Discharge Planning Updates sent to [facility] via [facility]. Kamryn Sheehan, Discharge Planning Asst.
[2024-01-16 09:00] VITALS: BP 181/74; PULSE 66; RESP 17; TEMP 37.3; O2SAT 95
[2024-01-16] MEDS: Gabapentin 400 MG Capsule PO ×3 (09:06→17:24)
[2024-01-16] MEDS: Menthol/Lanolin/Calamine/Znox 113 GM Tube 1 APPLIC TOPICAL (09:07)
[2024-01-16] MEDS: APIXABAN 2.5 MG TABLET (WCH) PO (09:07)
[2024-01-16] MEDS: amLODIPine 2.5 MG Tablet PO (09:09)
--- NOTE | 2024-01-16 10:58 | PN.RENAL_ITS ---
Subjective Subjective Resting in bed. No overnight events. Denies any complaints. Objective Data Objective Data Vital Signs: Vital Signs Temp Pulse Resp BP Pulse Ox O2 Del Method O2 Flow Rate 99.2 F H 66 17 181/74 H 95 Room Air 2 01/16/24 09:00 01/16/24 09:00 01/16/24 09:00 01/16/24 09:00 01/16/24 09:00 01/16/24 09:00 01/13/24 02:42 Oxygen Flow Rate (L/min) 2 Oxygen Delivery Method Room Air Weight: 83.1 kg Body Mass Index (BMI) 24.8 Intake & Output: Intake and Output for Last 24 Hours 01/14/24 01/15/24 01/16/24 23:59 23:59 23:59 Intake Total 1000 / 1000 1200 / 1200 Output Total 1150 / 1150 1825 / 1825 0 / 0 Balance -150 / -150 -625 / -625 0 / 0 Lab / Micro Data 01/12/24 06:30 01/15/24 06:59 Labs: Laboratory Results - last 24 hr 01/15/24 11:13: POC Glucose 173 H 01/15/24 16:28: POC Glucose 170 H 01/15/24 21:24: POC Glucose 127 H 01/16/24 06:50: POC Glucose 143 H Micro: Microbiology 01/11/24 21:50 Blood Culture (Wb) - Anticubital Left Blood Culture - Preliminary No growth in 48 hours. 01/11/24 21:00 Blood Culture (Wb) - Anticubital Left Blood Culture - Preliminary No growth in 48 hours. 01/11/24 21:05 Mucosa - Nose SARS-CoV-2, Influenza & RSV (PCR) - Final Rhythm Strip Rhythm Strip: Sinus Rhythm Rate: 79 Ectopy: None Physical Exam Narrative Alert awake oriented x 3 no obvious distress s1s2 no murmurs lungs clear abdomen soft, non-tender no edema Assessment & Plan Assessment/Plan (1) BRENDON (acute kidney injury): PLAN: - Baseline creatinine in August 2023 at 0.9. When he was admitted here for congestive heart failure, creatinine was around 1.4 and he came in with a creatinine of 6.9 on 01/11/2024. Patient presented with significantly decreased blood pressure. BP and renal function improved with volume expansion. Renal ultrasound without any hydronephrosis Urinalysis was benign with microscopic hematuria. Urine protein creatinine ratio about 1 g. The patient has extensive atherosclerotic vascular disease in the aorta and branches, CT abdomen was reviewed. He was scheduled to get a CT angiogram by vascular surgery. We will need that eventually once his kidney function improves to rule out renal artery stenosis. Lisinopril can theoretically cause acute renal failure in the setting of bilateral renal artery stenosis. Continue to hold lisinopril. Last labs from yesterday, Creatinine significantly better at 1.25mg/dL. No further workup needed at this point. Will continue to monitor his trajectory of renal function. Will arrange for hospital follow up. (2) HTN (hypertension): PLAN: - Patient came in with BP of 86/73 on 01/11/2024. The patient was on metoprolol tartrate 25 mg twice a day and furosemide 20 mg once per day, which were on hold at time of hospital admission. He had not been taking lisinopril for about 2 weeks prior to presentation. Yesterday started 2.5mg amlodipine. Will monitor BP. Once bilateral renal artery stenosis is ruled out, we should consider restarting RAAS clementina. Bp t his am pre amlodipine 181/74. Will increase amlodipine 5mg daily. - discharge planning in progress to ECF. Ok for discharge per renal when cleared by primary team.
[2024-01-16 11:56] LABS: Bedside Glucose 138 mg/dL (74-106)
[2024-01-16] MEDS: amLODIPine 5 MG Tablet PO (12:00)
[2024-01-16 14:34] VITALS: BP 151/78; PULSE 78; RESP 17; TEMP 36.6; O2SAT 97
--- NOTE | 2024-01-16 14:53 | CASEMGMT ---
Per RN patient would like to go home at discharge. MEME met with patient and his . SW is familiar with patient and his from last week. Patient and his both would like patient to go home with home health. MEME let them know someone will bring them a list of home health agencies and they just need to pick 3-4 places and KASHMIR ISAAC will check with agencies. Both were in agreement. MEME notified KASHMIR ISAAC. Mariely Juárez MSW ELONIA
--- NOTE | 2024-01-16 15:00 | DS.PCM_ITS ---
Providers Date of Admission: 01/11/24 Primary Care Physician: Dr. Delta Blair, Consultations 01/12/24 01:28 Consult: Nephrology Routine Consulting Provider: Adiel Covarrubias Reason for Consult: Severe acute renal failure EMERGENT Consult: No MD Notified: Yes Date Notified: 01/12/24 Time Notified: 05:01 Method of Notification: Answering Service Reason For Visit: SEVERE ACUTE RENAL FAILURE WITH HYPOTENSION Diagnosis Discharge Diagnosis (1) Acute renal failure: Status: Acute Code(s): N17.9 - Acute kidney failure, unspecified Qualifiers: Acute renal failure type: unspecified Qualified Code(s): N17.9 - Acute kidney failure, unspecified (2) Metabolic encephalopathy: Status: Acute Code(s): G93.41 - Metabolic encephalopathy Plan BRENDON * Creatinine on presentation was 6.91. Currently improved to 1.25 * Furosemide held (I don't see an ACEi on home list) * Matt catheter placed * renal US normal * nephrology following. * will need to follow up vascular surgery for angiogram to eval for FE. encephalopathy * resolved * likely multifactorial from BRENDON and gabapentin. * hold gabapentin. Myoclonus * resolved. * suspect due to gabapentin in BRENDON. * monitor. * As the kidney function has improved, will resume gabapentin. Chronic conditions: * Hyperlipidemia - Resume statin and check lipid profile. * Overweight; with BMI of 26.6 this admission - Weight loss will be recommended. Check TSH. * Diabetes mellitus type 2; of unknown control - ADA/renal diet. Fingerstick blood sugars before every meal and at bedtime + scale insulin. Check hemoglobin A1c to objectively evaluate quality of diabetic control. * History of paroxysmal atrial fibrillation; on apixaban - Continue apixaban at half of his previous dose due to his new severe acute renal failure. * History of chronic diastolic CHF; with preserved LVEF - Stable with patient clinically dry at time of admission. * peripheral arterial disease - Noted. DVT prophylaxis - not indicated as already on apixaban. Disposition: Initial plan was for patient go to alf facility but were waiting on insurance authorization. Patient has now would prefer to go home with home care. Patient will be discharged home with home care to follow-up. Medications at Discharge Home Medications metoprolol tartrate 25 mg tablet 25 mg PO BID blood pressure #60 tabs 09/19/23 sennosides 8.6 mg-docusate sodium 50 mg tablet (Stool Softener-Stimulant Laxative) 2 tab PO BID PRN PRN Constipation #0 tabs 09/19/23 lovastatin 10 mg tablet 10 mg PO DAILY cholesterol 09/26/23 acyclovir 400 mg tablet 400 mg PO .QOD antiviral 11/09/23 apixaban 5 mg tablet (Eliquis) 5 mg PO BID a fib #60 tabs 11/09/23 empagliflozin 10 mg tablet (Jardiance) 10 mg PO DAILY blood sugar #30 tabs 11/09/23 glipizide 5 mg tablet 5 mg PO DAILY blood sugar 11/09/23 ondansetron 4 mg disintegrating tablet 4 mg PO BID PRN nausea and vomiting 12/14/23 oxycodone-acetaminophen 10 mg-325 mg tablet 1 tab PO Q4-6H PRN pain 12/14/23 gabapentin 400 mg capsule 400 mg PO .every 6 hours PRN neuro pain 12/28/23 Hospital Course Operations None Procedures None Summary of Care Provided Minutes Spent on Discharge: 35 Hospital Course: Patient presented with confusion, myoclonus and acute kidney injury. Patient was on furosemide which has been held and did receive IV fluids. Kidney function has improved. Myoclonus that the patient had did resolve but that was with improvement of his kidney function but also holding his gabapentin. His gabapentin was subsequently resumed as his kidney function has returned to normal. We were waiting on getting him into a alf facility but patient and his feel better overall and patient be discharged home with home care. Weight / BMI Weight Weight: 83.1 kg Body Mass Index (BMI) 24.8 ABG / Lab / Microbiology Data 01/12/24 06:30 01/15/24 06:59 Laboratory: Laboratory Results - last 24 hr 01/15/24 16:28: POC Glucose 170 H 01/15/24 21:24: POC Glucose 127 H 01/16/24 06:50: POC Glucose 143 H 01/16/24 11:36: POC Glucose 138 H Microbiology: Microbiology 01/11/24 21:50 Blood Culture (Wb) - Anticubital Left Blood Culture - Preliminary No growth in 48 hours. 01/11/24 21:00 Blood Culture (Wb) - Anticubital Left Blood Culture - Prel iminary No growth in 48 hours. 01/11/24 21:05 Mucosa - Nose SARS-CoV-2, Influenza & RSV (PCR) - Final D/C Instructions Discharge Diet: No restrictions Meaningful Use Info Meaningful Use Diagnoses (Choose all that apply): None applicable Discharge Plan Admission Admit Date/Time: 01/11/24 23:05 Primary Reason for Your Visit: Acute kidney injury Attending Provider: Kaden Canales Primary Care Provider: Delta Blair Consulting Providers: Sony Agarwal; Adiel Covarrubias Instructions Additional Instructions / Restrictions: You had acute kidney injury likely due to taking furosemide. The furosemide will be stopped. He also had myoclonus, which is jerking involuntarily, this is likely due to your acute kidney injury as well as the gabapentin building up in your system. That improved once we corrected your kidney function. You may continue taking that as you were previously. Discharge Orders/Prescriptions Prescriptions: Continued lovastatin 10 mg tablet 10 mg PO DAILY glipizide 5 mg tablet 5 mg PO DAILY acyclovir 400 mg tablet 400 mg PO .QOD Eliquis 5 mg tablet 5 mg PO BID Qty: 60 11RF Jardiance 10 mg tablet 10 mg PO DAILY Qty: 30 11RF gabapentin 400 mg capsule 400 mg PO .every 6 hours PRN (Reason: neuro pain) ondansetron 4 mg tablet,disintegrating 4 mg PO BID PRN (Reason: nausea and vomiting) oxycodone-acetaminophen 10-325 mg tablet 1 tab PO Q4-6H PRN (Reason: pain) sennosides-docusate sodium [Stool Softener-Stimulant Laxat] 8.6-50 mg Tablet 2 tab PO BID PRN PRN (Reason: Constipation) Qty: 0 0RF metoprolol tartrate 25 mg Tablet 25 mg PO BID Qty: 60 2RF Rx Instructions: Hold for heart less than 50 or systolic blood pressure less than 100 mmHg. Discontinued furosemide 20 mg tablet 20 mg PO DAILY Qty: 90 3RF potassium chloride 10 mEq tablet extended release 10 meq PO DAILY Qty: 90 3RF Referrals / Follow Up: Delta Blair DO [Primary Care Provider] - Within 2 Weeks Disposition Disposition (needs filled in before D/C Order can be placed): Home Health Service
--- NOTE | 2024-01-16 15:13 | PHA.DC.MR.R ---
Pharmacy OR Med Reconciliation Pharmacy Service has performed discharge medication reconciliation for this patient. The patient's discharge medication list was reviewed for discrepancies and discrepancies were resolved. Medications at Discharge Home Medications metoprolol tartrate 25 mg tablet 25 mg PO BID blood pressure #60 tabs 09/19/23 sennosides 8.6 mg-docusate sodium 50 mg tablet (Stool Softener-Stimulant Laxative) 2 tab PO BID PRN PRN Constipation #0 tabs 09/19/23 lovastatin 10 mg tablet 10 mg PO DAILY cholesterol 09/26/23 acyclovir 400 mg tablet 400 mg PO .QOD antiviral 11/09/23 apixaban 5 mg tablet (Eliquis) 5 mg PO BID a fib #60 tabs 11/09/23 empagliflozin 10 mg tablet (Jardiance) 10 mg PO DAILY blood sugar #30 tabs 11/09/23 glipizide 5 mg tablet 5 mg PO DAILY blood sugar 11/09/23 ondansetron 4 mg disintegrating tablet 4 mg PO BID PRN nausea and vomiting 12/14/23 oxycodone-acetaminophen 10 mg-325 mg tablet 1 tab PO Q4-6H PRN pain 12/14/23 gabapentin 400 mg capsule 400 mg PO .every 6 hours PRN neuro pain 12/28/23
--- NOTE | 2024-01-16 15:22 | CASEMGMT ---
Addendum entered by Maribel Lombardi 01/16/24 15:48: RN CM received call back from [facility] and they are able to accept patient with planned start of care for Tuesday. RN CM updated discharge plan. RN CM called and updated regarding acceptance with [facility]. voiced understanding and appreciation. had no further questions or concerns. Original Note: KASHMIR ISAAC updated by SW that patient and would like HHC at discharge. KASHMIR CM to patient's room to discuss HHC. A list of HHC providers including quality and resource use data and consistent with the patient?s preferred geographical region, medical needs, and insurance network were provided from the [facility] Guide. Patient states just went home. RN CM called and reviewed list of HHC agencies over the phone. [facility]. KASHMIR CM called and made referral to [facility], awaiting acceptance.
--- NOTE | 2024-01-16 16:00 | CASEMGMT ---
Discharge Planning [facility] updated via [facility] that patient will return home. Kamryn Sheehan, Discharge Planning Asst.
[2024-01-16 17:19] LABS: Bedside Glucose 127 mg/dL (74-106)
== END 2024-01-16 17:58 | disposition home health service (06) | DRG 682 ==
LOC: ED 23:14 → PCU 23:57
PROVIDERS: Internal Medicine Nephrology; Admitting Provider Internal Medicine; Emergency Provider Emergency Medicine; PCP Family Medicine
DX: N17.8 Other acute kidney failure (principal); G92.8 Other toxic encephalopathy; I50.32 Chronic diastolic (congestive) heart failure; G25.3 Myoclonus; E11.42 Type 2 diabetes mellitus with diabetic polyneuropathy; E11.51 Type 2 diabetes mellitus with diabetic peripheral angiopathy without gangrene; I48.0 Paroxysmal atrial fibrillation; E78.5 Hyperlipidemia, unspecified; E66.3 Overweight; I11.0 Hypertensive heart disease with heart failure; I70.0 Atherosclerosis of aorta; T50.1X5A Adverse effect of loop [high-ceiling] diuretics, initial encounter; T42.6X5A Adverse effect of other antiepileptic and sedative-hypnotic drugs, initial encounter; R29.6 Repeated falls; Z68.26 Body mass index [BMI] 26.0-26.9, adult; Z79.01 Long term (current) use of anticoagulants; Z79.84 Long term (current) use of oral hypoglycemic drugs; Z79.899 Other long term (current) drug therapy; Z86.19 Personal history of other infectious and parasitic diseases
CPT/HCPCS: 36415; 70450; 71045; 76770; 80048; 80053; 80069; 80307; 80320; 81001; 82550; 82570; 82962; 83036; 83605; 83690; 83735; 83880; 84100; 84156; 84443; 84484; 85025; 85610; 87040; 87493; 87631; 93005; 94668; 97110; 97162; 97166; 97530; 97535; 99252; 99285; J7030; J7040; A4216; G0463; G0480; J2405

== ENCOUNTER → 2024-10-25 | Outpatient (CLI) | payer MEDICARE, SELFPAY ==
[2024-10-25 12:10] LABS: Absolute Lymphocyte Count 2.51 X10^3/uL (0.83-4.51); Absolute Neutrophil Count 5.7 X10^3/uL (2.0-7.7); Basophil# 0.07 X10^3/uL; Basophil% 0.7 % (0-1); Eosinophil# 0.17 X10^3/uL; Eosinophils% 1.8 % (0-5); Hematocrit 43.9 % (40-54); Hemoglobin 14.4 g/dL (13.0-16.5); Lymphocyte # 2.51 X10^3/ul (0.83-4.51); Lymphocyte % 26.4 % (19-41); Mean Corp Hgb Conc 32.8 g/dL (32-36); Mean Corpuscular Hgb 30.3 pg (27.0-32.0); Mean Corpuscular Volume 92.4 fL (80-94); Monocyte# 1.05 X10^3/uL; NRBC Flagged by Analyzer 0 % (0-5); Neutrophil # 5.65 X10^3/uL (2.7-7.7); Neutrophil % 59.5 % (47-70); Platelet Count 225 K/mm3 (150-450); RBC Distribution Width CV 13.8 % (11.6-14.6); RBC Distribution Width SD 46.8 fl (35.1-43.9); Red Blood Count 4.75 M/mm3 (4.6-6.2); White Blood Count 9.5 K/mm3 (4.4-11.0)
[2024-10-25 12:29] LABS: ALB/GLOB Ratio 0.8 RATIO (0.9-2.4); AST(SGOT) 30 U/L (15-37); Alanine Aminotransfer ALT/SGPT 25 U/L (16-61); Albumin, Serum 3.4 g/dL (3.2-5.0); Alkaline Phosphatase 76 U/L (45-117); Anion Gap 3 (5-15); BUN 21 mg/dL (7-18); BUN/Creat Ratio 15.4 RATIO (10-20); Calcium,Total 9.3 mg/dL (8.5-10.1); Chloride 106 mmol/L (98-107); Creatinine, Serum 1.36 mg/dL (0.70-1.30); EST Glomerular Filtration Rate 54 mL/min (>60); Est Glom Filt Rate - Afr Amer 65 mL/min (>60); Glucose 138 mg/dL (74-106); LDH 194 U/L (87-241); Potassium 4.3 mmol/L (3.5-5.1); Protein, Total 7.4 g/dL (6.4-8.2); Sodium Level 140 mmol/L (136-145)
== END | disposition home or self-care (01) ==
PROVIDERS: PCP Family Medicine; Visit Provider Family Medicine
DX: D64.9 Anemia, unspecified (principal); R53.83 Other fatigue; D72.829 Elevated white blood cell count, unspecified; Z79.899 Other long term (current) drug therapy
CPT/HCPCS: 36415; 80053; 83615; 84443; 85025

== ENCOUNTER → 2025-02-07 | Outpatient (CLI) | payer MEDICARE, SELFPAY ==
[2025-02-07 13:21] LABS: Microalbumin,Random Urine 12.7 mg/L (NO RANGE EST.); Microalbumin:Creatinine Ratio 81.9 mg/g CRE
[2025-02-07 13:27] LABS: Amphetamine Urine NEGATIVE (<1000 ng/mL); Barbiturate Urine NEGATIVE (< 200 ng/mL); Benzodiazepine Urine NEGATIVE (< 200 ng/mL); Buprenorphine Urine NEGATIVE (< 200 ng/mL); Cocaine Urine NEGATIVE (< 300 ng/mL); Fentanyl, Urine NEGATIVE; Methadone Urine NEGATIVE (< 300 ng/mL); Opiates Urine NEGATIVE (< 300 ng/mL); Oxycodone, Urine PRESUMPTIVE POSITIVE (< 100 ng/mL); PCP Urine NEGATIVE (< 25 ng/mL); THC Urine NEGATIVE (< 50 ng/mL)
== END | disposition home or self-care (01) ==
LOC: BFHLAB 09:55
PROVIDERS: PCP Family Medicine; Visit Provider Family Medicine
DX: E11.9 Type 2 diabetes mellitus without complications (principal); Z79.899 Other long term (current) drug therapy
CPT/HCPCS: 80307; 82043; 82570

== ENCOUNTER → 2025-05-01 | Outpatient (CLI) | payer MEDICARE, SELFPAY ==
--- NOTE | 2025-05-01 16:01 | MRI_ITS ---
PROCEDURE: SPINE LUMBAR W/WO CONTRAST 05/01/2025 REASON FOR EXAM: PAIN, LUMBAR STENOSIS, HX OF SURGERY TECHNIQUE: SPINE LUMBAR W/WO CONTRAST Multiplanar and multisequence images were obtained without and with intravenous gadolinium-based contrast administration. CONTRAST: 17 cc Clariscan COMPARISON: April 08, 2025 FINDINGS: Levoscoliosis is noted. There is grade 1 retrolisthesis at L 2-3, 0.5 cm. There is grade 1 retrolisthesis at L3-4, 0.4 cm. The vertebral body height is maintained. Vertebral body marrow signal is normal. Intervertebral disc signal shows desiccation. The facets are aligned. The L1-L2 level: There is minimal central disk protrusion. There is no lateral recess stenosis or foraminal stenosis. There is no critical central canal stenosis. The L2-L3 level: There is mild central and moderate right and left paracentral disc and osteophyte protrusion. There is moderate bilateral lateral recess stenosis. There is moderate bilateral foraminal narrowing secondary to disc protrusion and facet hypertrophy. There is no critical central canal stenosis. The L3-L4 level: There is moderate central and right and left paracentral disc and osteophyte protrusion. There is moderate bilateral lateral recess stenosis. There is moderate bilateral foraminal narrowing secondary to disc and osteophyte protrusion. There is no critical central canal stenosis. The L4-L5 level: There is disc extrusion which extends beyond the L5 endplate and into the left lateral recess, attached at the margin, measuring 0.4 x 0.6 by 0.7 cm. There is severe left lateral recess stenosis. There is mild right and left foraminal narrowing secondary to disc protrusion and facet hypertrophy. There is no critical central canal stenosis. The L5-S1 level: There is mild central and right and left paracentral disc protrusion with increased signal in the margin of the disc consistent with a fissure. There is mild left lateral recess effacement. There is no significant foraminal narrowing. There is no critical central canal stenosis. The visualized conus shows normal signal characteristics. Adjacent soft tissues are unremarkable. MRI/Spine Lumbar W/WO Contrast IMPRESSION: Levoscoliosis is noted. There is grade 1 retrolisthesis at L 2-3, 0.5 cm. There is grade 1 retrolisthes is at L3-4, 0.4 cm. There is disc extrusion at L4-5. There is no central canal stenosis, with lateral recess and foraminal narrowing . Reading Location: [facility]
== END | disposition home or self-care (01) ==
LOC: MRI 15:24
PROVIDERS: PCP Family Medicine; Referring Provider Student in an Organized Health Care Education/Training Program; Visit Provider Student in an Organized Health Care Education/Training Program
DX: M48.062 Spinal stenosis, lumbar region with neurogenic claudication (principal); M51.362 Other intervertebral disc degeneration, lumbar region with discogenic back pain and lower extremity pain; M43.16 Spondylolisthesis, lumbar region; Z98.890 Other specified postprocedural states
CPT/HCPCS: 72158; A9575

== ENCOUNTER → 2025-05-02 | Outpatient (CLI) | payer MEDICARE, SELFPAY ==
[2025-05-02 12:26] LABS: Hematocrit 46.5 % (40-54); Hemoglobin 15.0 g/dL (13.0-16.5); Immature Granulocytes Count 0.030 X10^3/uL (0.0-0.0); Mean Corp Hgb Conc 32.3 g/dL (32-36); Mean Corpuscular Volume 95.3 fL (80-94); Mean Platelet Vol. 11.4 fl (6.2-12.0); NRBC Flagged by Analyzer 0 % (0-5); Platelet Count 206 K/mm3 (150-450); RBC Distribution Width CV 13.7 % (11.6-14.6); RBC Distribution Width SD 48.2 fl (35.1-43.9); Red Blood Count 4.88 M/mm3 (4.6-6.2); White Blood Count 9.8 K/mm3 (4.4-11.0)
[2025-05-02 13:06] LABS: AST(SGOT) 24 U/L (<=37); Alanine Aminotransfer ALT/SGPT 15 U/L (<=46); Albumin, Serum 4.2 g/dL (3.4-4.8); Alkaline Phosphatase 81 U/L (40-129); Anion Gap 10 (5-15); BUN 18 mg/dL (4-19); BUN/Creat Ratio 15.5 RATIO (10-20); Calcium,Total 9.5 mg/dL (7.6-11.0); Carbon Dioxide 25.5 mmol/L (21.0-32.0); Chloride 103 mmol/L (98-108); Cholesterol 139 mg/dL (<=200); Ferritin 173 ng/mL (37-417); Globulin 3.1 g/dL (2.2-4.2); Glucose 157 mg/dL (70-99); Low Density Lipoprotein Calc. 53 mg/dL; Potassium 5.0 mmol/L (3.3-5.1); Triglycerides 275 mg/dL; Very Low Density Lipoprotein 55 mg/dL (5-40); Vitamin B12 538 pg/mL (180-914); cholesterol:hdl ratio screen 4.43
[2025-05-02 13:20] LABS: Iron 87 ug/dL (65-175)
== END | disposition home or self-care (01) ==
LOC: BFHLAB 09:46
PROVIDERS: PCP Family Medicine; Visit Provider Family Medicine
DX: I10 Essential (primary) hypertension (principal); R53.83 Other fatigue; D64.9 Anemia, unspecified; Z51.81 Encounter for therapeutic drug level monitoring
CPT/HCPCS: 36415; 80053; 80061; 82607; 82728; 83540; 84443; 85025

== ENCOUNTER → 2025-06-27 | Outpatient (CLI) | payer MEDICARE, SELFPAY | END | disposition home or self-care (01) | LOC: SL 12:23 | PROVIDERS: PCP Family Medicine; Referring Provider Family Medicine; Visit Provider Family Medicine | DX: G47.10 Hypersomnia, unspecified (principal) | CPT/HCPCS: 95806 ==